=== PATIENT | female | born 1950 | race Caucasian/White ===

== ENCOUNTER 2018-06-05 19:26 | Inpatient (IN) | payer OTHER ==
[~2018-06-05] VITALS: Ht 154.9 cm; Wt 40.8 kg
[2018-06-05 19:30] VITALS: BP_SYST 102
[2018-06-05] MEDS ORDERED: LORazepam 1 MG TABLET PO ONE (20:00)
[2018-06-05] MEDS ORDERED: LORazepam 2 MG/ML VIAL (FOR ER USE) IVP ONE ×2 (20:00→21:45)
[2018-06-05] MEDS ORDERED: NS 500 ML IV ONE ×2 (20:00→21:45)
[2018-06-05] MEDS ORDERED: NA PHOS,M-B/NA PHOS,DI-BA 118 ML (FLEET ENEMA) RC ONE (20:00)
[2018-06-05] MEDS ORDERED: MORPHINE 2 MG/ML INJ. SYRINGE IVP ONE (20:30)
[2018-06-05] MEDS ORDERED: SER25 PO (22:04)
[2018-06-05] MEDS ORDERED: QUET50TA PO (22:05)
[2018-06-05] MEDS ORDERED: TRAZ-123 PO (22:06)
[2018-06-05] MEDS ORDERED: LORA-259 PO (22:06)
[2018-06-05 23:27] VITALS: BP_SYST 106
[2018-06-06] MEDS ORDERED: ALBUTEROL SULFATE 0.083% 2.5 MG/3 ML VIAL.NEB INH PRN (00:15)
[2018-06-06] MEDS ORDERED: cefTRIAXone 1 GM VIAL ONE (01:41)
[2018-06-06] MEDS: cefTRIAXone 1 GM IVPB PREMIX 50 ML IV SCH ×2 (02:20→23:53)
[2018-06-06 05:37] VITALS: BP_SYST 106
[2018-06-06] MEDS: HYDROcodone/ACETAMIN 5-325 MG TAB (NORCO/ VICODIN) PO PRN ×2 (06:32→14:00)
[2018-06-06 07:01] LABS: BASOPHILS % (AUTO) 0.3 % (0.0-2.0); EOSINOPHILS # (AUTO) 0.1 K/uL (0.0-0.4); EOSINOPHILS % (AUTO) 1.4 % (0.0-4.0); HEMATOCRIT 37.7 % (36-48); HEMOGLOBIN 12.8 g/dL (12.0-16.0); LYMPHOCYTES # (AUTO) 1.2 K/uL (1.0-5.5); LYMPHOCYTES % (AUTO) 23.6 % (20.5-51.5); MEAN CORPUSCULAR HEMOGLOBIN 32 pg (27-31); MEAN CORPUSCULAR HGB CONC 34 % (32-36); MEAN CORPUSCULAR VOLUME 94 fL (79.0-98.0); MONOCYTES # (AUTO) 0.6 K/uL (0.0-1.0); MONOCYTES % (AUTO) 11.4 % (1.7-9.3); NEUTROPHILS # (AUTO) 3.1 K/uL (1.8-7.7); NEUTROPHILS % (AUTO) 63.3 % (40.0-70.0); PLATELET COUNT (AUTO) 249 K/uL (130-430); RED BLOOD CELL COUNT(AUTO) 4.03 MIL/uL (4.2-6.2); RED CELL DISTRIBUTION WIDTH 12.6 % (9.0-15.0)
[2018-06-06 07:34] LABS: ALBUMIN 2.9 g/dL (3.4-4.8); CALCIUM 8.2 mg/dL (8.4-11.0); CREATININE 0.58 mg/dL (0.55-1.30); POTASSIUM 4.2 mmol/L (3.5-5.1); TOTAL BILIRUBIN 0.2 mg/dL (0.0-1.0)
[2018-06-06 08:00] VITALS: BP_SYST 141
[2018-06-06] MEDS: QUEtiapine FUMARATE 25 MG TABLET PO SCH ×2 (08:44→20:29)
[2018-06-06] MEDS: LORazepam 1 MG TABLET PO SCH ×3 (08:45→20:29)
[2018-06-06] MEDS ORDERED: ACETAMINOPHEN 325 MG TABLET PO PRN (10:30)
[2018-06-06] MEDS: MORPHINE 2 MG/ML INJ. SYRINGE IVP PRN (11:03)
[2018-06-06 11:09] LABS: BILIRUBIN,URINE NEGATIVE (NEGATIVE); CLARITY/URINE CLEAR (CLEAR); COLOR,URINE YELLOW (YELLOW); GLUCOSE,URINE NEGATIVE (NEGATIVE); KETONES,URINE NEGATIVE (NEGATIVE); LEUKOCYTE ESTERASE ,URINE NEGATIVE (NEGATIVE); NITRITE, URINE NEGATIVE (NEGATIVE); PH,URINE 6.5 (5.0-8.0); PROTEIN URINE NEGATIVE (NEGATIVE); UROBILINOGEN,URINE 0.2 (0.2-1.0)
[2018-06-06 11:13] LABS: BLOOD, URINE TRACE (NEGATIVE)
[2018-06-06 11:38] LABS: BACTERIA,URINE MODERATE /HPF (None Seen); MUCUS,URINE None Seen /LPF (None Seen); WBC,URINE 0-3 /HPF (0-3); YEAST,URINE None Seen /HPF (None Seen)
[2018-06-06 12:15] VITALS: BP_SYST 126
[2018-06-06 16:15] VITALS: BP_SYST 122
[2018-06-06] MEDS ORDERED: DOCUSATE SODIUM 100 MG CAPSULE PO ONE (17:45)
[2018-06-06] MEDS ORDERED: POLY17PO4 PO (18:09)
[2018-06-06] MEDS ORDERED: ESCI10TA PO (18:09)
[2018-06-06 20:00] VITALS: BP_SYST 151
[2018-06-06] MEDS: DOCUSATE SODIUM 100 MG CAPSULE PO SCH (20:29)
[2018-06-06] MEDS: traZODone HCL 50 MG TABLET (DESYREL) PO SCH (20:29)
[2018-06-06] MEDS ORDERED: QUEtiapine FUMARATE 25 MG TABLET PO SCH (21:00)
[2018-06-07 00:38] VITALS: BP_SYST 116
[2018-06-07] MEDS: ONDANSETRON HCL 4 MG/2 ML VIAL IVP PRN ×2 (05:44→19:42)
[2018-06-07] MEDS: MORPHINE 2 MG/ML INJ. SYRINGE IVP PRN ×3 (05:53→14:46)
[2018-06-07 08:00] VITALS: BP_SYST 134
[2018-06-07] MEDS ORDERED: METOCLOPRAMIDE HCL 10 MG/2 ML VIAL IVP PRN (08:45)
[2018-06-07] MEDS ORDERED: POLYETHYLENE GLYCOL 3350, 17 GM/ POWD.PACK PO SCH (09:15)
[2018-06-07] MEDS ORDERED: MINERAL OIL 30 ML UDC PO SCH (09:15)
[2018-06-07] MEDS: QUEtiapine FUMARATE 25 MG TABLET PO SCH ×2 (09:37→21:39)
[2018-06-07] MEDS: LORazepam 1 MG TABLET PO SCH ×3 (09:37→20:24)
[2018-06-07] MEDS: DOCUSATE SODIUM 100 MG CAPSULE PO SCH ×2 (09:37→20:24)
[2018-06-07] MEDS ORDERED: POLYETHYLENE GLYCOL 3350, 17 GM/ POWD.PACK PO ONE (10:00)
[2018-06-07] MEDS ORDERED: MINERAL OIL 30 ML UDC PO ONE (10:00)
[2018-06-07 12:20] VITALS: BP_SYST 139
[2018-06-07 16:15] VITALS: BP_SYST 150
[2018-06-07 20:00] VITALS: BP_SYST 137
[2018-06-07] MEDS: MINERAL OIL 30 ML UDC PO SCH (21:00)
[2018-06-07] MEDS: traZODone HCL 50 MG TABLET (DESYREL) PO SCH (21:38)
[2018-06-07] MEDS: cefTRIAXone 1 GM IVPB PREMIX 50 ML IV SCH (23:16)
[2018-06-08 00:44] VITALS: BP_SYST 122
[2018-06-08] MEDS: MORPHINE 2 MG/ML INJ. SYRINGE IVP PRN ×2 (05:59→13:27)
[2018-06-08 08:00] VITALS: BP_SYST 120
[2018-06-08] MEDS ORDERED: POLYETHYLENE GLYCOL 3350, 17 GM/ POWD.PACK PO SCH (09:00)
[2018-06-08] MEDS: DOCUSATE SODIUM 100 MG CAPSULE PO SCH ×2 (09:01→20:08)
[2018-06-08] MEDS: QUEtiapine FUMARATE 25 MG TABLET PO SCH ×3 (09:01→20:08)
[2018-06-08] MEDS: MINERAL OIL 30 ML UDC PO SCH ×2 (09:01→20:09)
[2018-06-08] MEDS: LORazepam 1 MG TABLET PO SCH ×3 (09:01→20:09)
[2018-06-08] MEDS: ONDANSETRON HCL 4 MG/2 ML VIAL IVP PRN (10:27)
[2018-06-08 11:40] LABS: BASOPHILS % (AUTO) 0.4 % (0.0-2.0); EOSINOPHILS # (AUTO) 0.1 K/uL (0.0-0.4); EOSINOPHILS % (AUTO) 1.1 % (0.0-4.0); HEMATOCRIT 42.4 % (36-48); HEMOGLOBIN 14.1 g/dL (12.0-16.0); MEAN CORPUSCULAR HEMOGLOBIN 31 pg (27-31); MEAN CORPUSCULAR HGB CONC 33 % (32-36); MEAN CORPUSCULAR VOLUME 93 fL (79.0-98.0); MONOCYTES # (AUTO) 0.6 K/uL (0.0-1.0); NEUTROPHILS # (AUTO) 4.6 K/uL (1.8-7.7); NEUTROPHILS % (AUTO) 73.5 % (40.0-70.0); PLATELET COUNT (AUTO) 262 K/uL (130-430); RED BLOOD CELL COUNT(AUTO) 4.54 MIL/uL (4.2-6.2); RED CELL DISTRIBUTION WIDTH 12.6 % (9.0-15.0); WHITE BLOOD COUNT (AUTO) 6.4 K/uL (4.8-10.8)
[2018-06-08 11:48] LABS: CALCIUM 8.7 mg/dL (8.4-11.0); CREATININE 0.63 mg/dL (0.55-1.30); POTASSIUM 4.1 mmol/L (3.5-5.1)
[2018-06-08 11:56] LABS: ALBUMIN 3.3 g/dL (3.4-4.8); TOTAL BILIRUBIN 0.4 mg/dL (0.0-1.0)
[2018-06-08 13:04] VITALS: BP_SYST 104
[2018-06-08 17:06] VITALS: BP_SYST 123
[2018-06-08 18:00] VITALS: BP_SYST 126
[2018-06-08] MEDS: traZODone HCL 50 MG TABLET (DESYREL) PO SCH (20:09)
== END 2018-06-08 21:00 | DRG 690 ==
LOC: SED 19:26 → SMU 22:33
PROVIDERS: ADMIT Internal Medicine; ATTEND Internal Medicine
DX: N39.0 Urinary tract infection, site not specified (principal); E44.0 Moderate protein-calorie malnutrition; K59.00 Constipation, unspecified; D72.819 Decreased white blood cell count, unspecified; F41.9 Anxiety disorder, unspecified; I10 Essential (primary) hypertension; G35 Multiple sclerosis; F32.9 Major depressive disorder, single episode, unspecified; Z82.49 Family history of ischemic heart disease and other diseases of the circulatory system; Z88.2 Allergy status to sulfonamides; Z90.710 Acquired absence of both cervix and uterus; Z90.79 Acquired absence of other genital organ(s); Z79.899 Other long term (current) drug therapy
CPT/HCPCS: 36415; 76700-TC; 80053; 81000-TC; 85025; 87086; 94640; 94760; 96361; 96374; 96375; 96376; 97116-GP; 97530-GP; 99285; J0696; J2060; J2270; J2405; J2765; J7030; J7613

== ENCOUNTER 2018-06-18 12:03 | Inpatient (IN) | payer OTHER ==
[~2018-06-18] VITALS: Ht 152.4 cm; Wt 36.7 kg
[~2018-06-18 12:03] MED LIST: ESCI10TA PO; LORA-259 PO; POLY17PO4 PO; QUET50TA PO; SER25 PO; TRAZ-123 PO
[2018-06-18 12:05] VITALS: BP_SYST 152
[2018-06-18] MEDS ORDERED: LORazepam 1 MG TABLET PO ONE (12:15)
[2018-06-18 12:39] LABS: EOSINOPHILS # (AUTO) 0.1 K/uL (0.0-0.4); EOSINOPHILS % (AUTO) 1.7 % (0.0-4.0); HEMATOCRIT 39.2 % (36-48); HEMOGLOBIN 13.1 g/dL (12.0-16.0); LYMPHOCYTES # (AUTO) 1.1 K/uL (1.0-5.5); LYMPHOCYTES % (AUTO) 18.9 % (20.5-51.5); MEAN CORPUSCULAR HEMOGLOBIN 32 pg (27-31); MEAN CORPUSCULAR HGB CONC 34 % (32-36); MEAN CORPUSCULAR VOLUME 94 fL (79.0-98.0); MONOCYTES # (AUTO) 0.5 K/uL (0.0-1.0); MONOCYTES % (AUTO) 9.4 % (1.7-9.3); PLATELET COUNT (AUTO) 199 K/uL (130-430); RED BLOOD CELL COUNT(AUTO) 4.17 MIL/uL (4.2-6.2); RED CELL DISTRIBUTION WIDTH 12.2 % (9.0-15.0); WHITE BLOOD COUNT (AUTO) 5.8 K/uL (4.8-10.8)
[2018-06-18 12:41] LABS: BASOPHILS % (AUTO) 0.5 % (0.0-2.0); NEUTROPHILS # (AUTO) 4.1 K/uL (1.8-7.7); NEUTROPHILS % (AUTO) 69.5 % (40.0-70.0)
[2018-06-18 12:47] LABS: CALCIUM 8.7 mg/dL (8.4-11.0); CREATININE 0.57 mg/dL (0.55-1.30)
[2018-06-18 12:49] LABS: BILIRUBIN,URINE NEGATIVE (NEGATIVE); BLOOD, URINE NEGATIVE (NEGATIVE); CLARITY/URINE CLEAR (CLEAR); COLOR,URINE YELLOW (YELLOW); GLUCOSE,URINE NEGATIVE (NEGATIVE); KETONES,URINE NEGATIVE (NEGATIVE); LEUKOCYTE ESTERASE ,URINE NEGATIVE (NEGATIVE); NITRITE, URINE NEGATIVE (NEGATIVE); PH,URINE 5.5 (5.0-8.0); PROTEIN URINE NEGATIVE (NEGATIVE); UROBILINOGEN,URINE 0.2 (0.2-1.0)
[2018-06-18 12:51] LABS: ALBUMIN 3.5 g/dL (3.4-4.8); PROTHROMBIN TIME 10.4 SECS (9.5-12.5); TOTAL BILIRUBIN 0.3 mg/dL (0.0-1.0)
[2018-06-18] MEDS ORDERED: NA PHOS,M-B/NA PHOS,DI-BA 118 ML (FLEET ENEMA) RC ONE (13:30)
[2018-06-18] MEDS ORDERED: MAGNESIUM CITRATE 300 ML ORAL SOLUTION PO ONE (13:30)
[2018-06-18] MEDS ORDERED: ACETAMINOPHEN 325 MG TABLET PO PRN (14:00)
[2018-06-18] MEDS ORDERED: fentaNYL CITRATE/PF 100 MCG/2 ML AMP IVP ONE (14:25)
[2018-06-18] MEDS ORDERED: SEVOFLURANE 15 MIN GAS INH ONE (14:25)
[2018-06-18] MEDS ORDERED: metroNIDAZOLE 500 mg/NS 100 mL IVPB IV ONE (14:25)
[2018-06-18] MEDS ORDERED: GLYCOPYRROLATE 0.2 MG/ML VIAL IJ ONE (14:25)
[2018-06-18] MEDS ORDERED: LR 1,000 ML IV.SOLN IV ONE (14:25)
[2018-06-18] MEDS ORDERED: MIDAZOLAM HCL 5 MG/5 ML VIAL IVP ONE (14:25)
[2018-06-18] MEDS ORDERED: NEOSTIGMINE METHYLSULFATE 1 MG/ML, 10 ML VIAL IVP ONE (14:25)
[2018-06-18] MEDS ORDERED: BUPIVACAINE /PF 0.75% 10 ML VIAL INJ ONE (14:25)
[2018-06-18] MEDS ORDERED: CEFAZOLIN 1 GM IVPB PREMIX 50 ML IV ONE (14:25)
[2018-06-18] MEDS ORDERED: ROCURONIUM BROMIDE 10 MG/ML (ZEMURON) IV ONE (14:25)
[2018-06-18] MEDS ORDERED: NS IRRIG SOLN 1000 ML IR ONE (14:25)
[2018-06-18] MEDS ORDERED: ROPIVACAINE HCL/PF 5 MG/ML 0.5% 30 ML VIAL INJ ONE (14:25)
[2018-06-18] MEDS ORDERED: PROPOFOL 200MG/ 20ML VIAL (DIPRIVAN) IV ONE (14:25)
[2018-06-18 14:32] VITALS: BP_SYST 121
[2018-06-18] MEDS: NACL 0.9% 1,000 ML IV SCH ×2 (14:58→23:46)
[2018-06-18] MEDS: MORPHINE 2 MG/ML INJ. SYRINGE IVP PRN ×2 (15:03→19:37)
[2018-06-18] MEDS: ONDANSETRON HCL 4 MG/2 ML VIAL IVP PRN (15:45)
[2018-06-18] MEDS ORDERED: ESCITALOPRAM OXALATE 10 MG TABLET PO SCH (18:30)
[2018-06-18] MEDS: LORazepam 1 MG TABLET PO SCH ×2 (18:30→20:30)
[2018-06-18 20:00] VITALS: BP_SYST 142
[2018-06-18] MEDS ORDERED: QUEtiapine FUMARATE 25 MG TABLET PO ONE (20:00)
[2018-06-18] MEDS: traZODone HCL 50 MG TABLET (DESYREL) PO SCH (20:30)
[2018-06-18] MEDS: QUEtiapine FUMARATE 25 MG TABLET PO SCH (21:00)
[2018-06-19 00:19] VITALS: BP_SYST 129
[2018-06-19] MEDS: MORPHINE 2 MG/ML INJ. SYRINGE IVP PRN ×2 (00:35→05:50)
[2018-06-19] MEDS: ONDANSETRON HCL 4 MG/2 ML VIAL IVP PRN ×2 (00:39→07:33)
[2018-06-19 08:04] VITALS: BP_SYST 158
[2018-06-19] MEDS: POLYETHYLENE GLYCOL 3350, 17 GM/ POWD.PACK PO SCH (08:22)
[2018-06-19] MEDS: CITALOPRAM HYDROBROMIDE 20 MG TABLET PO SCH (08:22)
[2018-06-19] MEDS: QUEtiapine FUMARATE 25 MG TABLET PO SCH ×3 (08:23→20:50)
[2018-06-19] MEDS: LORazepam 1 MG TABLET PO SCH ×3 (08:23→20:49)
[2018-06-19] MEDS: NACL 0.9% 1,000 ML IV SCH ×2 (08:26→20:49)
[2018-06-19] MEDS ORDERED: ESCITALOPRAM OXALATE 10 MG TABLET PO SCH (09:00)
[2018-06-19] MEDS ORDERED: BACLOFEN 10 MG TABLET PO PRN (10:30)
[2018-06-19] MEDS: ALPRAZolam 0.25 MG TABLET PO PRN (11:29)
[2018-06-19 12:15] VITALS: BP_SYST 121
[2018-06-19] MEDS ORDERED: LACTULOSE 20 GM/30 ML UDC PO ONE (15:30)
[2018-06-19 16:48] VITALS: BP_SYST 110
[2018-06-19 20:00] VITALS: BP_SYST 116
[2018-06-19] MEDS: traZODone HCL 50 MG TABLET (DESYREL) PO SCH (20:49)
[2018-06-19] MEDS: LACTULOSE 20 GM/30 ML UDC PO SCH (20:51)
[2018-06-20 01:00] VITALS: BP_SYST 133
[2018-06-20] MEDS: NACL 0.9% 1,000 ML IV SCH ×2 (05:47→15:53)
[2018-06-20] MEDS: ALPRAZolam 0.25 MG TABLET PO PRN ×2 (06:19→18:29)
[2018-06-20 08:09] VITALS: BP_SYST 130
[2018-06-20] MEDS: POLYETHYLENE GLYCOL 3350, 17 GM/ POWD.PACK PO SCH (08:15)
[2018-06-20] MEDS: LORazepam 1 MG TABLET PO SCH ×3 (08:16→21:35)
[2018-06-20] MEDS: QUEtiapine FUMARATE 25 MG TABLET PO SCH ×3 (08:16→22:36)
[2018-06-20] MEDS: CITALOPRAM HYDROBROMIDE 20 MG TABLET PO SCH (08:16)
[2018-06-20] MEDS: LACTULOSE 20 GM/30 ML UDC PO SCH ×2 (08:16→21:34)
[2018-06-20] MEDS ORDERED: MAGNESIUM CITRATE 300 ML ORAL SOLUTION PO ONE (09:45)
[2018-06-20] MEDS: MORPHINE 2 MG/ML INJ. SYRINGE IVP PRN (10:05)
[2018-06-20] MEDS ORDERED: POLYETHYLENE GLYCOL 3350, 17 GM/ POWD.PACK PO ONE (10:15)
[2018-06-20] MEDS ORDERED: MINERAL OIL 30 ML UDC PO ONE (10:15)
[2018-06-20] MEDS ORDERED: MORPHINE 2 MG/ML INJ. SYRINGE IVP ONE (11:45)
[2018-06-20 12:15] VITALS: BP_SYST 145
[2018-06-20] MEDS ORDERED: GOLYTELY / COLYTE SOLUTION 4 LITERS PO ONE (12:15)
[2018-06-20 13:14] LABS: BASOPHILS # (AUTO) 0.1 K/uL (0.0-0.2); BASOPHILS % (AUTO) 1.3 % (0.0-2.0); EOSINOPHILS # (AUTO) 0.1 K/uL (0.0-0.4); EOSINOPHILS % (AUTO) 1.6 % (0.0-4.0); HEMATOCRIT 40.4 % (36-48); HEMOGLOBIN 13.3 g/dL (12.0-16.0); LYMPHOCYTES # (AUTO) 1.1 K/uL (1.0-5.5); LYMPHOCYTES % (AUTO) 20.9 % (20.5-51.5); MEAN CORPUSCULAR HEMOGLOBIN 31 pg (27-31); MEAN CORPUSCULAR HGB CONC 33 % (32-36); MEAN CORPUSCULAR VOLUME 94 fL (79.0-98.0); MONOCYTES # (AUTO) 0.4 K/uL (0.0-1.0); MONOCYTES % (AUTO) 8.1 % (1.7-9.3); NEUTROPHILS # (AUTO) 3.6 K/uL (1.8-7.7); NEUTROPHILS % (AUTO) 68.1 % (40.0-70.0); PLATELET COUNT (AUTO) 177 K/uL (130-430); RED BLOOD CELL COUNT(AUTO) 4.29 MIL/uL (4.2-6.2); RED CELL DISTRIBUTION WIDTH 12.7 % (9.0-15.0); WHITE BLOOD COUNT (AUTO) 5.3 K/uL (4.8-10.8)
[2018-06-20 13:20] LABS: CALCIUM 8.9 mg/dL (8.4-11.0); CREATININE 0.55 mg/dL (0.55-1.30); POTASSIUM 4.2 mmol/L (3.5-5.1)
[2018-06-20 13:27] LABS: PROTHROMBIN TIME 10.4 SECS (9.5-12.5)
[2018-06-20] MEDS: MINERAL OIL 30 ML UDC PO SCH ×2 (13:33→21:36)
[2018-06-20] MEDS: ONDANSETRON HCL 4 MG/2 ML VIAL IVP PRN ×2 (14:28→21:35)
[2018-06-20 14:49] LABS: BILIRUBIN,URINE NEGATIVE (NEGATIVE); BLOOD, URINE NEGATIVE (NEGATIVE); CLARITY/URINE CLEAR (CLEAR); COLOR,URINE YELLOW (YELLOW); GLUCOSE,URINE NEGATIVE (NEGATIVE); KETONES,URINE NEGATIVE (NEGATIVE); LEUKOCYTE ESTERASE ,URINE NEGATIVE (NEGATIVE); NITRITE, URINE NEGATIVE (NEGATIVE); PROTEIN URINE NEGATIVE (NEGATIVE); UROBILINOGEN,URINE 0.2 (0.2-1.0)
[2018-06-20] MEDS: HYDROmorphone 1 MG INJ. 1 MG/ML AMPUL IVP PRN (15:53)
[2018-06-20 16:15] VITALS: BP_SYST 114
[2018-06-20] MEDS: NEOMYCIN SULFATE 500 MG TABLET PO SCH ×2 (17:50→23:21)
[2018-06-20 20:06] VITALS: BP_SYST 145
[2018-06-20] MEDS: traZODone HCL 50 MG TABLET (DESYREL) PO SCH (22:36)
[2018-06-21 00:28] VITALS: BP_SYST 99
[2018-06-21] MEDS: NACL 0.9% 1,000 ML IV SCH ×2 (01:57→11:33)
[2018-06-21] MEDS: ONDANSETRON HCL 4 MG/2 ML VIAL IVP PRN (05:45)
[2018-06-21] MEDS: HYDROmorphone 1 MG INJ. 1 MG/ML AMPUL IVP PRN ×3 (05:45→22:25)
[2018-06-21] MEDS: MINERAL OIL 30 ML UDC PO SCH ×2 (06:00→13:56)
[2018-06-21] MEDS: NEOMYCIN SULFATE 500 MG TABLET PO SCH ×2 (06:00→11:44)
[2018-06-21] MEDS: LORazepam 2 MG/ML VIAL IVP PRN ×2 (06:38→11:37)
[2018-06-21 07:55] VITALS: BP_SYST 153
[2018-06-21] MEDS: POLYETHYLENE GLYCOL 3350, 17 GM/ POWD.PACK PO SCH (09:00)
[2018-06-21] MEDS: QUEtiapine FUMARATE 25 MG TABLET PO SCH ×3 (09:00→22:24)
[2018-06-21] MEDS: LACTULOSE 20 GM/30 ML UDC PO SCH (09:00)
[2018-06-21] MEDS: CITALOPRAM HYDROBROMIDE 20 MG TABLET PO SCH (09:00)
[2018-06-21] MEDS: LORazepam 1 MG TABLET PO SCH ×3 (09:00→22:24)
[2018-06-21] MEDS ORDERED: POLYETHYLENE GLYCOL 3350, 17 GM/ POWD.PACK PO SCH (09:00)
[2018-06-21 12:15] VITALS: BP_SYST 149
[2018-06-21 13:23] VITALS: BP_SYST 162
[2018-06-21] MEDS ORDERED: metroNIDAZOLE 500 mg/NS 100 ML IV ONE (15:16)
[2018-06-21] MEDS ORDERED: LR 500 ML IV ONE (15:33)
[2018-06-21] MEDS ORDERED: fentaNYL CITRATE/PF 100 MCG/2 ML AMP IVP PRN ×2 (15:45)
[2018-06-21] MEDS ORDERED: MIDAZOLAM HCL 2 MG/2 ML VIAL (VERSED) IVP PRN (15:45)
[2018-06-21] MEDS ORDERED: ONDANSETRON HCL 4 MG/2 ML VIAL IVP PRN (15:45)
[2018-06-21 16:01] VITALS: BP_SYST 162
[2018-06-21] MEDS ORDERED: ROPIVACAINE 0.2% 100 ML EPI ONE (16:15)
[2018-06-21] MEDS ORDERED: MIDAZOLAM HCL 2 MG/2 ML VIAL (VERSED) ONE (16:54)
[2018-06-21] MEDS ORDERED: fentaNYL CITRATE/PF 100 MCG/2 ML AMP ONE (17:13)
[2018-06-21] MEDS ORDERED: KETOROLAC TROMETHAMINE 30 MG VIAL ONE (17:14)
[2018-06-21] MEDS: PIPERACILLIN/TAZO 2.25G/DEX-IS 50 ML IV SCH ×2 (18:19→23:45)
[2018-06-21] MEDS: D5/0.45 NS 1,000 ML IV SCH (18:20)
[2018-06-21 19:45] VITALS: BP_SYST 127
[2018-06-21 19:56] LABS: BASOPHILS % (AUTO) 0.3 % (0.0-2.0); EOSINOPHILS % (AUTO) 0.1 % (0.0-4.0); HEMATOCRIT 38.7 % (36-48); HEMOGLOBIN 13.2 g/dL (12.0-16.0); LYMPHOCYTES # (AUTO) 0.4 K/uL (1.0-5.5); LYMPHOCYTES % (AUTO) 2.9 % (20.5-51.5); MEAN CORPUSCULAR HEMOGLOBIN 32 pg (27-31); MEAN CORPUSCULAR HGB CONC 34 % (32-36); MEAN CORPUSCULAR VOLUME 93 fL (79.0-98.0); MONOCYTES # (AUTO) 1.2 K/uL (0.0-1.0); MONOCYTES % (AUTO) 8.3 % (1.7-9.3); NEUTROPHILS # (AUTO) 12.7 K/uL (1.8-7.7); PLATELET COUNT (AUTO) 155 K/uL (130-430); RED BLOOD CELL COUNT(AUTO) 4.18 MIL/uL (4.2-6.2); RED CELL DISTRIBUTION WIDTH 12.5 % (9.0-15.0); WHITE BLOOD COUNT (AUTO) 14.3 K/uL (4.8-10.8)
[2018-06-21 20:28] LABS: NEUTROPHILS % (AUTO) 88.4 % (40.0-70.0)
[2018-06-21] MEDS ORDERED: ROPIVACAINE 0.2% 200 ML ONE (22:16)
[2018-06-21] MEDS: traZODone HCL 50 MG TABLET (DESYREL) PO SCH (22:24)
[2018-06-21] MEDS: metroNIDAZOLE 500 mg/NS 100 ML IV SCH (22:26)
[2018-06-21] MEDS: ROPIVACAINE 0.2% 100 ML EPI SCH (23:12)
[2018-06-22 00:23] VITALS: BP_SYST 151
[2018-06-22] MEDS: LORazepam 2 MG/ML VIAL IVP PRN (01:27)
[2018-06-22] MEDS: metroNIDAZOLE 500 mg/NS 100 ML IV SCH (05:22)
[2018-06-22] MEDS: PIPERACILLIN/TAZO 2.25G/DEX-IS 50 ML IV SCH ×4 (06:48→23:37)
[2018-06-22] MEDS: ROPIVACAINE 0.2% 100 ML EPI SCH ×3 (06:49→22:16)
[2018-06-22 06:54] LABS: ALBUMIN 2.7 g/dL (3.4-4.8); CALCIUM 8.1 mg/dL (8.4-11.0); CREATININE 0.64 mg/dL (0.55-1.30); HEMOGLOBIN 12.3 g/dL (12.0-16.0); LYMPHOCYTES # (AUTO) 0.7 K/uL (1.0-5.5); MEAN CORPUSCULAR HEMOGLOBIN 33 pg (27-31); PLATELET COUNT (AUTO) 135 K/uL (130-430); POTASSIUM 3.2 mmol/L (3.5-5.1); TOTAL BILIRUBIN 0.7 mg/dL (0.0-1.0)
[2018-06-22 07:13] LABS: RED BLOOD CELL COUNT(AUTO) 3.81 MIL/uL (4.2-6.2); WHITE BLOOD COUNT (AUTO) 9.3 K/uL (4.8-10.8)
[2018-06-22 07:14] LABS: HEMATOCRIT 35.6 % (36-48); MEAN CORPUSCULAR HGB CONC 32 % (32-36); MEAN CORPUSCULAR VOLUME 94 fL (79.0-98.0)
[2018-06-22 07:15] LABS: MONOCYTES % (AUTO) 10.5 % (1.7-9.3); NEUTROPHILS % (AUTO) 82.3 % (40.0-70.0); RED CELL DISTRIBUTION WIDTH 12.6 % (9.0-15.0)
[2018-06-22 07:16] LABS: EOSINOPHILS % (AUTO) 0.2 % (0.0-4.0); NEUTROPHILS # (AUTO) 7.6 K/uL (1.8-7.7)
[2018-06-22] MEDS: D5/0.45 NS 1,000 ML IV SCH ×3 (07:20→17:07)
[2018-06-22 08:00] VITALS: BP_SYST 135
[2018-06-22] MEDS: LORazepam 1 MG TABLET PO SCH ×3 (08:43→22:16)
[2018-06-22] MEDS: QUEtiapine FUMARATE 25 MG TABLET PO SCH ×3 (08:43→22:16)
[2018-06-22] MEDS: CITALOPRAM HYDROBROMIDE 20 MG TABLET PO SCH (08:44)
[2018-06-22] MEDS: ONDANSETRON HCL 4 MG/2 ML VIAL IVP PRN ×3 (08:54→23:40)
[2018-06-22] MEDS: KETOROLAC TROMETHAMINE 15 MG VIAL IVP PRN (10:35)
[2018-06-22 12:24] VITALS: BP_SYST 156
[2018-06-22] MEDS: HYDROmorphone 1 MG INJ. 1 MG/ML AMPUL IVP PRN ×3 (12:50→23:37)
[2018-06-22 16:17] VITALS: BP_SYST 107; BP_SYST 117
[2018-06-22 19:45] VITALS: BP_SYST 127
[2018-06-22] MEDS: traZODone HCL 50 MG TABLET (DESYREL) PO SCH (22:16)
[2018-06-23 00:49] VITALS: BP_SYST 108
[2018-06-23] MEDS: HYDROmorphone 1 MG INJ. 1 MG/ML AMPUL IVP PRN ×5 (05:26→22:19)
[2018-06-23] MEDS: PIPERACILLIN/TAZO 2.25G/DEX-IS 50 ML IV SCH ×3 (05:27→17:16)
[2018-06-23] MEDS: ROPIVACAINE 0.2% 100 ML EPI SCH (05:43)
[2018-06-23 06:52] LABS: CALCIUM 8.2 mg/dL (8.4-11.0); CREATININE 0.66 mg/dL (0.55-1.30)
[2018-06-23 06:55] LABS: BASOPHILS % (AUTO) 0.7 % (0.0-2.0); EOSINOPHILS % (AUTO) 0.7 % (0.0-4.0); HEMATOCRIT 38.4 % (36-48); HEMOGLOBIN 12.5 g/dL (12.0-16.0); MEAN CORPUSCULAR HEMOGLOBIN 31 pg (27-31); MEAN CORPUSCULAR HGB CONC 33 % (32-36); MEAN CORPUSCULAR VOLUME 94 fL (79.0-98.0); MONOCYTES # (AUTO) 0.8 K/uL (0.0-1.0); MONOCYTES % (AUTO) 11.6 % (1.7-9.3); NEUTROPHILS # (AUTO) 5.2 K/uL (1.8-7.7); PLATELET COUNT (AUTO) 136 K/uL (130-430); RED BLOOD CELL COUNT(AUTO) 4.08 MIL/uL (4.2-6.2); RED CELL DISTRIBUTION WIDTH 12.3 % (9.0-15.0)
[2018-06-23 07:08] LABS: ALBUMIN 2.8 g/dL (3.4-4.8); TOTAL BILIRUBIN 0.7 mg/dL (0.0-1.0)
[2018-06-23 07:13] LABS: POTASSIUM 2.8 mmol/L (3.5-5.1)
[2018-06-23 08:00] VITALS: BP_SYST 113
[2018-06-23] MEDS: CITALOPRAM HYDROBROMIDE 20 MG TABLET PO SCH (09:07)
[2018-06-23] MEDS: QUEtiapine FUMARATE 25 MG TABLET PO SCH ×4 (09:07→20:49)
[2018-06-23] MEDS: LORazepam 1 MG TABLET PO SCH ×3 (09:07→20:49)
[2018-06-23] MEDS: KCL 20 mEq in 100 mL (PREMIX) 100 ML IV SCH ×2 (09:09→11:48)
[2018-06-23] MEDS: D5/0.45 NS 1,000 ML IV SCH ×3 (09:10→21:33)
[2018-06-23] MEDS: LORazepam 2 MG/ML VIAL IVP PRN (11:41)
[2018-06-23] MEDS: KETOROLAC TROMETHAMINE 15 MG VIAL IVP PRN (11:43)
[2018-06-23] MEDS: ONDANSETRON HCL 4 MG/2 ML VIAL IVP PRN (11:45)
[2018-06-23 14:26] VITALS: BP_SYST 122
[2018-06-23 16:00] VITALS: BP_SYST 125
[2018-06-23] MEDS ORDERED: POTASSIUM CHLORIDE 40 MEQ, LIDOCAINE JECT 2% PF 100 MG 50 MG in NS 250 ML IV ONE (18:00)
[2018-06-23 19:55] VITALS: BP_SYST 135
[2018-06-23] MEDS: traZODone HCL 50 MG TABLET (DESYREL) PO SCH (20:49)
[2018-06-24] MEDS: PIPERACILLIN/TAZO 2.25G/DEX-IS 50 ML IV SCH ×3 (00:09→12:15)
[2018-06-24 00:34] VITALS: BP_SYST 112
[2018-06-24 03:30] VITALS: BP_SYST 141
[2018-06-24] MEDS: HYDROmorphone 1 MG INJ. 1 MG/ML AMPUL IVP PRN ×3 (03:33→13:20)
[2018-06-24] MEDS: ONDANSETRON HCL 4 MG/2 ML VIAL IVP PRN ×2 (03:42→08:07)
[2018-06-24 08:00] VITALS: BP_SYST 156
[2018-06-24] MEDS: CITALOPRAM HYDROBROMIDE 20 MG TABLET PO SCH (08:09)
[2018-06-24] MEDS: QUEtiapine FUMARATE 25 MG TABLET PO SCH ×2 (08:09→13:20)
[2018-06-24] MEDS ORDERED: ACET325T53 PO (08:10)
[2018-06-24] MEDS: LORazepam 1 MG TABLET PO SCH (08:10)
[2018-06-24] MEDS: D5/0.45 NS 1,000 ML IV SCH (08:46)
[2018-06-24 11:29] VITALS: BP_SYST 148
[2018-06-24] MEDS: LORazepam 2 MG/ML VIAL IVP PRN (12:15)
[2018-06-24 12:26] VITALS: BP_SYST 148
== END 2018-06-24 13:40 | DRG 329 ==
LOC: SED 12:03 → SMU 13:58 → STU 06-21 19:08 → SMU 06-23 13:59
PROVIDERS: ADMIT Internal Medicine; ATTEND Internal Medicine
PROC: 0DBK0ZZ Excision of Ascending Colon, Open Approach (ICD-10-PCS; 2018-06-21)
PROC: 0DBL0ZZ Excision of Transverse Colon, Open Approach (ICD-10-PCS; 2018-06-21)
PROC: 0DBN0ZZ Excision of Sigmoid Colon, Open Approach (ICD-10-PCS; 2018-06-21)
PROC: 0D1K0Z4 Bypass Ascending Colon to Cutaneous, Open Approach (ICD-10-PCS; principal; 2018-06-21 15:00)
DX: K62.3 Rectal prolapse (principal); E43 Unspecified severe protein-calorie malnutrition; Z68.1 Body mass index [BMI] 19.9 or less, adult; K56.41 Fecal impaction; I10 Essential (primary) hypertension; G89.29 Other chronic pain; K59.8 Other specified functional intestinal disorders; M19.90 Unspecified osteoarthritis, unspecified site; F41.9 Anxiety disorder, unspecified; F32.9 Major depressive disorder, single episode, unspecified; Z90.710 Acquired absence of both cervix and uterus; Z90.49 Acquired absence of other specified parts of digestive tract; Z88.2 Allergy status to sulfonamides; Z79.899 Other long term (current) drug therapy
CPT/HCPCS: 36415; 71045; 74018; 80048; 80053; 81003; 82150-TC; 83605; 83690-TC; 83735-TC; 84132-TC; 85025; 85610-TC; 85730-TC; 86886; 86900; 86901; 87081; 88307; 93005; 97110-GP; 97116-GP; 97530-GP; 99285; J0690; J1170; J1885; J2060; J2250; J2270; J2405; J2543; J2704; J2710; J2795; J3010; J3465; J3480; J3490; J7030; J7050; J7120

== ENCOUNTER 2018-07-23 05:28 | Inpatient (IN) | payer OTHER ==
[~2018-07-23] VITALS: Ht 167.6 cm; Wt 44.9 kg
[~2018-07-23 05:28] MED LIST changes: +ACET325T53 PO
[2018-07-23 05:33] VITALS: BP_SYST 117
[2018-07-23] MEDS ORDERED: NACL 0.9% 1,000 ML IV ONE ×2 (05:37→07:15)
[2018-07-23] MEDS ORDERED: MORPHINE 2 MG/ML INJ. SYRINGE IVP ONE (05:45)
[2018-07-23] MEDS ORDERED: ONDANSETRON HCL 4 MG/2 ML VIAL IVP ONE ×2 (05:45)
[2018-07-23 06:36] LABS: BASOPHILS % (AUTO) 0.6 % (0.0-2.0); EOSINOPHILS # (AUTO) 0.1 K/uL (0.0-0.4); EOSINOPHILS % (AUTO) 2.9 % (0.0-4.0); HEMOGLOBIN 12.9 g/dL (12.0-16.0); LYMPHOCYTES # (AUTO) 1.2 K/uL (1.0-5.5); LYMPHOCYTES % (AUTO) 23.6 % (20.5-51.5); MEAN CORPUSCULAR HEMOGLOBIN 30 pg (27-31); MEAN CORPUSCULAR HGB CONC 33 % (32-36); MEAN CORPUSCULAR VOLUME 91 fL (79.0-98.0); MONOCYTES # (AUTO) 0.4 K/uL (0.0-1.0); MONOCYTES % (AUTO) 8.6 % (1.7-9.3); NEUTROPHILS # (AUTO) 3.2 K/uL (1.8-7.7); NEUTROPHILS % (AUTO) 64.3 % (40.0-70.0); PLATELET COUNT (AUTO) 215 K/uL (130-430); WHITE BLOOD COUNT (AUTO) 4.9 K/uL (4.8-10.8)
[2018-07-23 06:48] LABS: PROTHROMBIN TIME 10.2 SECS (9.5-12.5)
[2018-07-23 06:52] LABS: CALCIUM 8.6 mg/dL (8.4-11.0); CREATININE 0.51 mg/dL (0.55-1.30); POTASSIUM 4.5 mmol/L (3.5-5.1)
[2018-07-23 07:03] LABS: ALBUMIN 3.2 g/dL (3.4-4.8); TOTAL BILIRUBIN 0.8 mg/dL (0.0-1.0)
[2018-07-23] MEDS ORDERED: SER100 PO (07:36)
[2018-07-23] MEDS ORDERED: LORA-258 PO (07:36)
[2018-07-23] MEDS ORDERED: ONDA4TAB5 PO (07:36)
[2018-07-23] MEDS ORDERED: TRAZ300T11 PO (07:36)
[2018-07-23] MEDS ORDERED: FAMO20TA8 PO (07:36)
[2018-07-23] MEDS ORDERED: CEL20 PO (07:36)
[2018-07-23] MEDS ORDERED: LUBI24CA5 PO (07:36)
[2018-07-23] MEDS ORDERED: ESCI10TA54 PO (07:45)
[2018-07-23] MEDS ORDERED: NOR10 PO (07:45)
[2018-07-23] MEDS ORDERED: CAT.1 PO (07:45)
[2018-07-23] MEDS ORDERED: IBUP-1969 PO (07:45)
[2018-07-23] MEDS ORDERED: HYDR-3606 PO (07:49)
[2018-07-23] MEDS ORDERED: ASCO1TAB39 PO (07:49)
[2018-07-23] MEDS ORDERED: BISA-79 PO (07:49)
[2018-07-23 08:31] LABS: BILIRUBIN,URINE NEGATIVE (NEGATIVE); BLOOD, URINE NEGATIVE (NEGATIVE); CLARITY/URINE CLEAR (CLEAR); COLOR,URINE YELLOW (YELLOW); GLUCOSE,URINE NEGATIVE (NEGATIVE); KETONES,URINE NEGATIVE (NEGATIVE); LEUKOCYTE ESTERASE ,URINE NEGATIVE (NEGATIVE); NITRITE, URINE NEGATIVE (NEGATIVE); PROTEIN URINE NEGATIVE (NEGATIVE); UROBILINOGEN,URINE 0.2 (0.2-1.0)
[2018-07-23] MEDS: NACL 0.9% 1,000 ML IV SCH (13:26)
[2018-07-23 13:30] VITALS: BP_SYST 130
[2018-07-23 13:37] VITALS: BP_SYST 130
[2018-07-23] MEDS: ONDANSETRON HCL 4 MG/2 ML VIAL IVP PRN (13:38)
[2018-07-23 15:54] VITALS: BP_SYST 107
[2018-07-23 19:49] VITALS: BP_SYST 89
[2018-07-23] MEDS: MORPHINE 2 MG/ML INJ. SYRINGE IVP PRN (20:28)
[2018-07-23] MEDS: QUEtiapine FUMARATE 100 MG TABLET PO SCH (20:28)
[2018-07-23] MEDS ORDERED: cloNIDine HCL 0.1 MG TABLET PO SCH (22:00)
[2018-07-23] MEDS: ACETAMINOPHEN 325 MG TABLET PO PRN (23:26)
[2018-07-24] VITALS (7 sets, daily range): BP systolic 105–127
[2018-07-24] MEDS: MORPHINE 2 MG/ML INJ. SYRINGE IVP PRN ×6 (01:34→22:25)
[2018-07-24] MEDS: NACL 0.9% 1,000 ML IV SCH ×2 (01:35→14:58)
[2018-07-24] MEDS: ACETAMINOPHEN 325 MG TABLET PO PRN ×3 (04:41→17:32)
[2018-07-24] MEDS: ONDANSETRON HCL 4 MG/2 ML VIAL IVP PRN (04:42)
[2018-07-24 06:35] LABS: BASOPHILS % (AUTO) 0.7 % (0.0-2.0); EOSINOPHILS # (AUTO) 0.2 K/uL (0.0-0.4); EOSINOPHILS % (AUTO) 4.9 % (0.0-4.0); HEMATOCRIT 34.7 % (36-48); HEMOGLOBIN 11.2 g/dL (12.0-16.0); LYMPHOCYTES # (AUTO) 1.6 K/uL (1.0-5.5); LYMPHOCYTES % (AUTO) 32.5 % (20.5-51.5); MEAN CORPUSCULAR HEMOGLOBIN 30 pg (27-31); MEAN CORPUSCULAR HGB CONC 32 % (32-36); MEAN CORPUSCULAR VOLUME 93 fL (79.0-98.0); MONOCYTES # (AUTO) 0.4 K/uL (0.0-1.0); MONOCYTES % (AUTO) 8.3 % (1.7-9.3); NEUTROPHILS # (AUTO) 2.7 K/uL (1.8-7.7); NEUTROPHILS % (AUTO) 53.6 % (40.0-70.0); PLATELET COUNT (AUTO) 199 K/uL (130-430); RED BLOOD CELL COUNT(AUTO) 3.74 MIL/uL (4.2-6.2); RED CELL DISTRIBUTION WIDTH 12.9 % (9.0-15.0); WHITE BLOOD COUNT (AUTO) 4.9 K/uL (4.8-10.8)
[2018-07-24 06:52] LABS: ALBUMIN 2.8 g/dL (3.4-4.8); CALCIUM 8.4 mg/dL (8.4-11.0); CREATININE 0.68 mg/dL (0.55-1.30); POTASSIUM 3.9 mmol/L (3.5-5.1); TOTAL BILIRUBIN 0.3 mg/dL (0.0-1.0)
[2018-07-24] MEDS: POLYETHYLENE GLYCOL 3350, 17 GM/ POWD.PACK PO SCH (08:04)
[2018-07-24] MEDS: FAMOTIDINE 20 MG TABLET PO SCH (08:04)
[2018-07-24] MEDS: BISACODYL 5 MG TABLET.DR (DULCOLAX) PO SCH (08:05)
[2018-07-24] MEDS ORDERED: PANTOPRAZOLE GRANULES PACKET 40 MG GT SCH (09:00)
[2018-07-24] MEDS ORDERED: IPRATROPIUM/ALBUTEROL SULFATE 3 ML AMPUL.NEB INH PRN (09:00)
[2018-07-24] MEDS: LORazepam 1 MG TABLET PO PRN ×2 (09:42→17:32)
[2018-07-24] MEDS: amLODIPine BESYLATE 10 MG TABLET PO SCH (21:00)
[2018-07-24] MEDS: QUEtiapine FUMARATE 100 MG TABLET PO SCH (21:12)
[2018-07-25 01:08] VITALS: BP_SYST 129
[2018-07-25] MEDS: LORazepam 1 MG TABLET PO PRN ×3 (02:27→19:16)
[2018-07-25] MEDS: ONDANSETRON HCL 4 MG/2 ML VIAL IVP PRN ×2 (05:51→12:23)
[2018-07-25] MEDS: NACL 0.9% 1,000 ML IV SCH (05:52)
[2018-07-25] MEDS: MORPHINE 2 MG/ML INJ. SYRINGE IVP PRN ×3 (06:12→17:50)
[2018-07-25 07:33] LABS: BASOPHILS % (AUTO) 0.3 % (0.0-2.0); EOSINOPHILS # (AUTO) 0.1 K/uL (0.0-0.4); EOSINOPHILS % (AUTO) 2.3 % (0.0-4.0); HEMATOCRIT 39.5 % (36-48); HEMOGLOBIN 12.9 g/dL (12.0-16.0); LYMPHOCYTES # (AUTO) 1.2 K/uL (1.0-5.5); LYMPHOCYTES % (AUTO) 17.9 % (20.5-51.5); MEAN CORPUSCULAR HEMOGLOBIN 30 pg (27-31); MEAN CORPUSCULAR HGB CONC 33 % (32-36); MEAN CORPUSCULAR VOLUME 92 fL (79.0-98.0); MONOCYTES # (AUTO) 0.5 K/uL (0.0-1.0); MONOCYTES % (AUTO) 7.3 % (1.7-9.3); NEUTROPHILS # (AUTO) 4.6 K/uL (1.8-7.7); NEUTROPHILS % (AUTO) 72.2 % (40.0-70.0); PLATELET COUNT (AUTO) 236 K/uL (130-430); RED CELL DISTRIBUTION WIDTH 12.6 % (9.0-15.0); WHITE BLOOD COUNT (AUTO) 6.4 K/uL (4.8-10.8)
[2018-07-25 07:49] LABS: ALBUMIN 3.2 g/dL (3.4-4.8); CALCIUM 8.9 mg/dL (8.4-11.0); CREATININE 0.44 mg/dL (0.55-1.30); POTASSIUM 3.8 mmol/L (3.5-5.1); TOTAL BILIRUBIN 0.5 mg/dL (0.0-1.0)
[2018-07-25 08:08] VITALS: BP_SYST 147
[2018-07-25] MEDS: FAMOTIDINE 20 MG TABLET PO SCH (08:51)
[2018-07-25] MEDS: BISACODYL 5 MG TABLET.DR (DULCOLAX) PO SCH (08:52)
[2018-07-25] MEDS: POLYETHYLENE GLYCOL 3350, 17 GM/ POWD.PACK PO SCH (08:52)
[2018-07-25] MEDS ORDERED: PANTOPRAZOLE GRANULES PACKET 40 MG PO ONE (09:00)
[2018-07-25 11:55] VITALS: BP_SYST 148
[2018-07-25 15:00] VITALS: BP_SYST 142
[2018-07-25] MEDS ORDERED: traZODone HCL 50 MG TABLET (DESYREL) PO PRN (15:30)
[2018-07-25 17:39] VITALS: BP_SYST 142
[2018-07-25] MEDS: amLODIPine BESYLATE 10 MG TABLET PO SCH (20:24)
[2018-07-25] MEDS: QUEtiapine FUMARATE 100 MG TABLET PO SCH (20:24)
[2018-07-25 20:38] VITALS: BP_SYST 141
[2018-07-26] MEDS ORDERED: PANTOPRAZOLE GRANULES PACKET 40 MG PO SCH (06:00)
== END 2018-07-25 21:38 | DRG 640 ==
LOC: SED 05:28 → SMU 12:18
PROVIDERS: ADMIT Internal Medicine; ATTEND Internal Medicine
DX: E86.0 Dehydration (principal); E43 Unspecified severe protein-calorie malnutrition; Z68.1 Body mass index [BMI] 19.9 or less, adult; R55 Syncope and collapse; F41.9 Anxiety disorder, unspecified; R29.6 Repeated falls; I10 Essential (primary) hypertension; R42 Dizziness and giddiness; F32.9 Major depressive disorder, single episode, unspecified; G89.29 Other chronic pain; J44.9 Chronic obstructive pulmonary disease, unspecified; Z93.3 Colostomy status; Z90.49 Acquired absence of other specified parts of digestive tract; Z88.2 Allergy status to sulfonamides; Z87.440 Personal history of urinary (tract) infections; Z79.899 Other long term (current) drug therapy
CPT/HCPCS: 36415; 71045; 80053; 81003; 83690-TC; 83880; 84484; 85025; 85610-TC; 85730-TC; 87081; 93005; 96361; 96374; 96375; 99285; A4371; A4409; J2270; J2405; J7030

== ENCOUNTER 2018-09-26 04:35 | Emergency (ER) | payer OTHER ==
[~2018-09-26] VITALS: Ht 152.4 cm; Wt 39.5 kg
[2018-09-26 04:35] VITALS: BP_SYST 145
[~2018-09-26 04:35] MED LIST changes: +ASCO1TAB39 PO; +BISA-79 PO; +CAT.1 PO; +CEL20 PO; +ESCI10TA54 PO; +FAMO20TA8 PO; +HYDR-3606 PO; +IBUP-1969 PO; +LORA-258 PO; +LUBI24CA5 PO; +NOR10 PO; +ONDA4TAB5 PO; +SER100 PO; -TRAZ-123 PO
[2018-09-26] MEDS ORDERED: TRAZ-126 PO (04:59)
[2018-09-26] MEDS ORDERED: ONDANSETRON HCL 4 MG/2 ML VIAL IVP ONE (05:15)
[2018-09-26] MEDS ORDERED: MORPHINE 4 MG/ML INJ. SYRINGE IVP ONE (05:15)
[2018-09-26] MEDS ORDERED: KETOROLAC TROMETHAMINE 15 MG VIAL IVP ONE (05:45)
[2018-09-26 06:50] VITALS: BP_SYST 141
== END 2018-09-26 06:50 | disposition home or self-care (01) ==
LOC: SED 04:35
DX: G89.29 Other chronic pain (principal); M54.5 Low back pain; M54.6 Pain in thoracic spine; F32.9 Major depressive disorder, single episode, unspecified; I10 Essential (primary) hypertension; Z79.899 Other long term (current) drug therapy; Z88.2 Allergy status to sulfonamides
CPT/HCPCS: 72128; 72131; 96374; 96375; 99284; J1885; J2270; J2405

== ENCOUNTER 2019-02-02 08:10 | Emergency (ER) | payer OTHER ==
[~2019-02-02] VITALS: Ht 157.5 cm; Wt 47.2 kg
[~2019-02-02 08:10] MED LIST changes: -ESCI10TA54 PO; -LORA-258 PO; -QUET50TA PO; +TRAZ-219 PO
[2019-02-02 08:13] VITALS: BP_SYST 164
--- NOTE | 2019-02-02 08:13 | NUR ---
Patient to ER bed 5 to gown for evaluation. Side rails up. Report given to Romain JONES.
--- NOTE | 2019-02-02 08:25 | NUR ---
Patient awake, alert, oriented x 4. Patient complaining of sharp lower abdominal pain 7/10. Patient states she feels very anxious. MD is aware. No signs or symptoms of distress noted.
--- NOTE | 2019-02-02 08:30 | NUR ---
PANCHO Hernandes at bedside examining patient.
[2019-02-02] MEDS ORDERED: LORazepam 2 MG/ML VIAL (FOR ER USE) IVP ONE ×2 (08:45→10:45)
[2019-02-02] MEDS ORDERED: ONDANSETRON HCL 4 MG/2 ML VIAL IVP ONE (08:45)
[2019-02-02] MEDS ORDERED: NACL 0.9% 1,000 ML IV ONE (08:45)
[2019-02-02 09:17] LABS: HEMATOCRIT 40.2 % (36-48); HEMOGLOBIN 12.9 g/dL (12.0-16.0); MEAN CORPUSCULAR HEMOGLOBIN 26 pg (27-31); MEAN CORPUSCULAR HGB CONC 32 % (32-36); MEAN CORPUSCULAR VOLUME 81 fL (79.0-98.0); RED BLOOD CELL COUNT(AUTO) 4.96 MIL/uL (4.2-6.2); WHITE BLOOD COUNT (AUTO) 6.7 K/uL (4.8-10.8)
[2019-02-02 09:18] LABS: BASOPHILS % (AUTO) 0.5 % (0.0-2.0); EOSINOPHILS # (AUTO) 0.1 K/uL (0.0-0.4); EOSINOPHILS % (AUTO) 1.5 % (0.0-4.0); LYMPHOCYTES # (AUTO) 1.1 K/uL (1.0-5.5); LYMPHOCYTES % (AUTO) 16.3 % (20.5-51.5); MONOCYTES # (AUTO) 0.6 K/uL (0.0-1.0); NEUTROPHILS # (AUTO) 4.8 K/uL (1.8-7.7); NEUTROPHILS % (AUTO) 72.7 % (40.0-70.0); PLATELET COUNT (AUTO) 252 K/uL (130-430); RED CELL DISTRIBUTION WIDTH 15.4 % (9.0-15.0)
[2019-02-02 09:19] LABS: CREATININE 0.75 mg/dL (0.55-1.30); POTASSIUM 3.9 mmol/L (3.5-5.1)
[2019-02-02 09:25] LABS: ALBUMIN 3.6 g/dL (3.4-4.8); CALCIUM 9.1 mg/dL (8.4-11.0); TOTAL BILIRUBIN 0.4 mg/dL (0.0-1.0)
--- NOTE | 2019-02-02 09:50 | NUR ---
Pt medicated for anxiety and nausea
[2019-02-02] MEDS ORDERED: ACETAMINOPHEN 500 MG TABLET PO ONE (10:00)
--- NOTE | 2019-02-02 10:30 | NUR ---
Pt reports nausea resolved and anxiety is diminished
[2019-02-02 10:35] LABS: BILIRUBIN,URINE NEGATIVE (NEGATIVE); BLOOD, URINE NEGATIVE (NEGATIVE); CLARITY/URINE CLEAR (CLEAR); COLOR,URINE YELLOW (YELLOW); GLUCOSE,URINE NEGATIVE (NEGATIVE); KETONES,URINE NEGATIVE (NEGATIVE); LEUKOCYTE ESTERASE ,URINE NEGATIVE (NEGATIVE); NITRITE, URINE NEGATIVE (NEGATIVE); PH,URINE 6.5 (5.0-8.0); PROTEIN URINE NEGATIVE (NEGATIVE); UROBILINOGEN,URINE 0.2 (0.2-1.0)
--- NOTE | 2019-02-02 10:46 | NUR ---
Social Service Note: MINE MOTOR ENGINEER called to ED to meet with pt due to pt have anxiety. MINE MOTOR ENGINEER met with pt at bedside; pt's speech is pressured and quick. Pt states that she has anxiety and her PCP prescribes her Ativan. Pt states that she does not see a psychiatrist or therapist. MINE MOTOR ENGINEER spoke with pt about the benefits of finding a therapist and a psychiatrist to help manage her medications. MINE MOTOR ENGINEER encouraged pt to make an appointment with her PCP to obtain a referral to a psychiatrist. MINE MOTOR ENGINEER provided pt with outpatient mental health providers resource list. Pt denies any thoughts of hurting herself. CELINE has spoken to ED physician to provide update. MINE MOTOR ENGINEER will remain available for support and will follow up as needed.
--- NOTE | 2019-02-02 11:20 | NUR ---
Pt has no acute distress noted.Pt seen by Niharika social security benefits interviewer.
[2019-02-02 12:00] VITALS: BP_SYST 160
--- NOTE | 2019-02-02 12:00 | NUR ---
Patient given written and verbal discharge instructions and verbalizes understanding. ER MD discussed with patient the results and treatment provided. Patient in stable condition. ID arm band removed. IV catheter removed intact and dressing applied, no active bleeding. Rx of MiraLax Powder given. Patient educated on pain management and to follow up with PMD. Pain Scale 0/10. Opportunity for questions provided and answered. Medication side effect fact sheet provided.
== END 2019-02-02 12:00 | disposition home or self-care (01) ==
LOC: SED 08:10
DX: K59.00 Constipation, unspecified (principal); F41.9 Anxiety disorder, unspecified; J44.9 Chronic obstructive pulmonary disease, unspecified; I10 Essential (primary) hypertension; F32.9 Major depressive disorder, single episode, unspecified; Z88.2 Allergy status to sulfonamides; Z79.899 Other long term (current) drug therapy
CPT/HCPCS: 36415; 74176; 80053; 81003; 83690; 85025; 96374; 96375; 99284; J2060; J2405; J7030

== ENCOUNTER 2019-04-06 13:49 | Emergency (ER) | payer OTHER ==
[~2019-04-06] VITALS: Ht 152.4 cm; Wt 46.7 kg
[2019-04-06 14:00] VITALS: BP_SYST 127
[2019-04-06] MEDS ORDERED: MORPHINE 2 MG/ML INJ. SYRINGE IVP ONE (14:15)
[2019-04-06] MEDS ORDERED: DIPHENHYDRAMINE INJ 50 MG/ML VIAL IVP ONE (14:15)
[2019-04-06 14:51] LABS: BASOPHILS % (AUTO) 0.3 % (0.0-2.0); EOSINOPHILS # (AUTO) 0.1 K/uL (0.0-0.4); EOSINOPHILS % (AUTO) 1.4 % (0.0-4.0); HEMATOCRIT 34.7 % (36-48); HEMOGLOBIN 11.4 g/dL (12.0-16.0); LYMPHOCYTES # (AUTO) 1.3 K/uL (1.0-5.5); LYMPHOCYTES % (AUTO) 20.2 % (20.5-51.5); MEAN CORPUSCULAR HEMOGLOBIN 26 pg (27-31); MEAN CORPUSCULAR HGB CONC 33 % (32-36); MEAN CORPUSCULAR VOLUME 81 fL (79.0-98.0); MONOCYTES # (AUTO) 0.6 K/uL (0.0-1.0); MONOCYTES % (AUTO) 8.6 % (1.7-9.3); NEUTROPHILS # (AUTO) 4.5 K/uL (1.8-7.7); NEUTROPHILS % (AUTO) 69.5 % (40.0-70.0); PLATELET COUNT (AUTO) 282 K/uL (130-430); RED CELL DISTRIBUTION WIDTH 17.2 % (9.0-15.0); WHITE BLOOD COUNT (AUTO) 6.5 K/uL (4.8-10.8)
[2019-04-06 14:54] LABS: CREATININE 0.79 mg/dL (0.55-1.30); POTASSIUM 3.7 mmol/L (3.5-5.1); PROTHROMBIN TIME 10.6 SECS (9.5-12.5)
[2019-04-06 14:58] LABS: ALBUMIN 3.7 g/dL (3.4-4.8); TOTAL BILIRUBIN 0.4 mg/dL (0.0-1.0)
[2019-04-06 15:22] LABS: BILIRUBIN,URINE NEGATIVE (NEGATIVE); BLOOD, URINE NEGATIVE (NEGATIVE); CLARITY/URINE CLEAR (CLEAR); COLOR,URINE YELLOW (YELLOW); GLUCOSE,URINE NEGATIVE (NEGATIVE); KETONES,URINE NEGATIVE (NEGATIVE); LEUKOCYTE ESTERASE ,URINE NEGATIVE (NEGATIVE); NITRITE, URINE NEGATIVE (NEGATIVE); PROTEIN URINE NEGATIVE (NEGATIVE); UROBILINOGEN,URINE 0.2 (0.2-1.0)
[2019-04-06] MEDS ORDERED: LORazepam 2 MG/ML VIAL (FOR ER USE) IVP ONE (16:30)
[2019-04-06] MEDS ORDERED: KETOROLAC TROMETHAMINE 30 MG VIAL IVP ONE (16:30)
[2019-04-06] MEDS ORDERED: HYDROcodone/ACETAMIN 5-325 MG TAB (NORCO/ VICODIN) PO ONE (16:30)
[2019-04-06] MEDS ORDERED: MAGNESIUM CITRATE 300 ML ORAL SOLUTION PO ONE (17:00)
[2019-04-06 17:02] VITALS: BP_SYST 149
== END 2019-04-06 16:58 | disposition home or self-care (01) ==
LOC: SED 13:49
DX: R10.84 Generalized abdominal pain (principal); J44.9 Chronic obstructive pulmonary disease, unspecified; I10 Essential (primary) hypertension; F32.9 Major depressive disorder, single episode, unspecified; F41.9 Anxiety disorder, unspecified; Z88.2 Allergy status to sulfonamides; Z79.899 Other long term (current) drug therapy
CPT/HCPCS: 36415; 71045; 74176; 80053; 81003; 83605; 83690; 85025; 85610; 87040; 93005; 96374; 96375; 99284; J1200; J1885; J2060; J2270

== ENCOUNTER 2019-04-16 09:52 | Inpatient (IN) | payer OTHER ==
[~2019-04-16] VITALS: Ht 154.9 cm; Wt 46.7 kg
[2019-04-16 09:52] VITALS: BP_SYST 158
[2019-04-16] MEDS ORDERED: NACL 0.9% 1,000 ML IV ONE (11:27)
[2019-04-16] MEDS ORDERED: LORazepam 2 MG/ML VIAL (FOR ER USE) IVP ONE ×2 (11:30→12:45)
[2019-04-16] MEDS ORDERED: KETOROLAC TROMETHAMINE 30 MG VIAL IVP ONE (11:30)
[2019-04-16 12:04] LABS: BASOPHILS % (AUTO) 0.6 % (0.0-2.0); EOSINOPHILS % (AUTO) 0.6 % (0.0-4.0); HEMATOCRIT 39.5 % (36-48); HEMOGLOBIN 12.7 g/dL (12.0-16.0); LYMPHOCYTES % (AUTO) 13.6 % (20.5-51.5); MEAN CORPUSCULAR HEMOGLOBIN 26 pg (27-31); MEAN CORPUSCULAR HGB CONC 32 % (32-36); MEAN CORPUSCULAR VOLUME 82 fL (79.0-98.0); MONOCYTES # (AUTO) 0.5 K/uL (0.0-1.0); MONOCYTES % (AUTO) 6.4 % (1.7-9.3); NEUTROPHILS % (AUTO) 78.8 % (40.0-70.0); PLATELET COUNT (AUTO) 254 K/uL (130-430); RED BLOOD CELL COUNT(AUTO) 4.85 MIL/uL (4.2-6.2); RED CELL DISTRIBUTION WIDTH 17.5 % (9.0-15.0); WHITE BLOOD COUNT (AUTO) 7.6 K/uL (4.8-10.8)
[2019-04-16 12:10] LABS: CALCIUM 9.5 mg/dL (8.4-11.0); CREATININE 0.73 mg/dL (0.55-1.30); POTASSIUM 4.1 mmol/L (3.5-5.1)
[2019-04-16 12:14] LABS: ALBUMIN 4.1 g/dL (3.4-4.8); TOTAL BILIRUBIN 0.6 mg/dL (0.0-1.0)
[2019-04-16] MEDS ORDERED: KETAMINE 30 MG/3 ML SYRINGE IVP ONE (14:00)
[2019-04-16] MEDS ORDERED: fentaNYL CITRATE/PF 100 MCG/2 ML AMP IVP ONE (15:00)
[2019-04-16] MEDS ORDERED: NEOSTIGMINE METHYLSULFATE 1 MG/ML, 10 ML VIAL IVP ONE (15:10)
[2019-04-16] MEDS ORDERED: BUPIVACAINE /PF 0.5% 30 ML VIAL INJ ONE (15:10)
[2019-04-16] MEDS ORDERED: PROPOFOL 200MG/ 20ML VIAL (DIPRIVAN) IV ONE (15:10)
[2019-04-16] MEDS ORDERED: ROCURONIUM BROMIDE 10 MG/ML (ZEMURON) IV ONE (15:10)
[2019-04-16] MEDS ORDERED: LIDOCAINE 2%, 20 ML MDV INJ ONE (15:10)
[2019-04-16] MEDS ORDERED: BUPIVACAINE /EPINEPHRINE/PF 0.25% 30 ML VIAL INJ ONE (15:10)
[2019-04-16] MEDS ORDERED: ONDANSETRON HCL 4 MG/2 ML VIAL IVP ONE (15:10)
[2019-04-16] MEDS ORDERED: LR 1,000 ML IV.SOLN IV ONE (15:10)
[2019-04-16] MEDS ORDERED: SEVOFLURANE 15 MIN GAS INH ONE (15:10)
[2019-04-16] MEDS ORDERED: MIDAZOLAM HCL 5 MG/5 ML VIAL IVP ONE (15:10)
[2019-04-16] MEDS ORDERED: GLYCOPYRROLATE 0.2 MG/ML VIAL IJ ONE (15:10)
[2019-04-16] MEDS ORDERED: MEPERIDINE HCL/PF 100 MG/ML AMP IM ONE (15:10)
[2019-04-16] MEDS ORDERED: DIPHENHYDRAMINE INJ 50 MG/ML VIAL IVP ONE (16:15)
[2019-04-16] MEDS ORDERED: MORPHINE 2 MG/ML INJ. SYRINGE IVP PRN (17:00)
[2019-04-16] MEDS ORDERED: LORA10TA7 PO (17:51)
[2019-04-16] MEDS ORDERED: PANT20TA2 PO (17:51)
[2019-04-16] MEDS: NACL 0.9% 1,000 ML IV SCH (19:07)
[2019-04-16] MEDS: MORPHINE 2 MG/ML INJ. SYRINGE IVP PRN (19:08)
[2019-04-16 19:09] VITALS: BP_SYST 144
[2019-04-16] MEDS ORDERED: ALBUTEROL SULFATE 0.083% 2.5 MG/3 ML VIAL.NEB INH PRN (23:45)
[2019-04-16] MEDS ORDERED: ACETAMINOPHEN 325 MG TABLET PO PRN (23:45)
[2019-04-17 00:07] VITALS: BP_SYST 144
[2019-04-17] MEDS ORDERED: AMPICILLIN SODIUM/SULBACTAM NA 3 GM VIAL ONE (00:37)
[2019-04-17] MEDS: AMPICILLIN SODIUM/SULBACTAM NA 3 GM in NS 100 ML IV SCH ×4 (00:42→16:55)
[2019-04-17] MEDS ORDERED: traZODone HCL 50 MG TABLET (DESYREL) PO SCH ×2 (01:00→09:00)
[2019-04-17] MEDS ORDERED: QUEtiapine FUMARATE 100 MG TABLET PO SCH (01:00)
[2019-04-17] MEDS ORDERED: QUEtiapine FUMARATE 100 MG TABLET PO ONE (01:00)
[2019-04-17 01:14] VITALS: BP_SYST 142
[2019-04-17] MEDS: LORazepam 1 MG TABLET PO PRN ×2 (06:51→21:06)
[2019-04-17] MEDS: NACL 0.9% 1,000 ML IV SCH ×2 (06:51→21:07)
[2019-04-17] MEDS: PANTOPRAZOLE SODIUM 40 MG TAB PO SCH (06:54)
[2019-04-17 08:05] VITALS: BP_SYST 135
[2019-04-17] MEDS: LORATADINE 10 MG TABLET PO SCH (09:00)
[2019-04-17] MEDS: QUEtiapine FUMARATE 25 MG TABLET PO SCH (09:27)
[2019-04-17] MEDS: BISACODYL 5 MG TABLET.DR (DULCOLAX) PO SCH (09:27)
[2019-04-17] MEDS: POLYETHYLENE GLYCOL 3350, 17 GM/ POWD.PACK PO SCH ×2 (09:27→21:00)
[2019-04-17] MEDS: ONDANSETRON HCL 4 MG/2 ML VIAL IVP PRN (09:28)
[2019-04-17 11:39] VITALS: BP_SYST 140
[2019-04-17] MEDS: LORazepam 2 MG/ML VIAL IVP PRN ×2 (11:46→15:47)
[2019-04-17] MEDS: MORPHINE 2 MG/ML INJ. SYRINGE IVP PRN ×3 (12:47→22:37)
[2019-04-17 15:49] VITALS: BP_SYST 139
[2019-04-17] MEDS ORDERED: MORPHINE 2 MG/ML INJ. SYRINGE IVP ONE (18:30)
[2019-04-17 21:00] VITALS: BP_SYST 157
[2019-04-17] MEDS: QUEtiapine FUMARATE 100 MG TABLET PO SCH (21:06)
[2019-04-17] MEDS: traZODone HCL 50 MG TABLET (DESYREL) PO SCH (21:07)
[2019-04-18] MEDS: AMPICILLIN SODIUM/SULBACTAM NA 3 GM in NS 100 ML IV SCH ×4 (00:13→18:11)
[2019-04-18 00:45] VITALS: BP_SYST 123
[2019-04-18] MEDS: MORPHINE 2 MG/ML INJ. SYRINGE IVP PRN (05:25)
[2019-04-18] MEDS: PANTOPRAZOLE SODIUM 40 MG TAB PO SCH (06:09)
[2019-04-18 08:00] VITALS: BP_SYST 134
[2019-04-18] MEDS: POLYETHYLENE GLYCOL 3350, 17 GM/ POWD.PACK PO SCH ×3 (09:00→21:17)
[2019-04-18] MEDS: LORATADINE 10 MG TABLET PO SCH (09:00)
[2019-04-18] MEDS: BISACODYL 5 MG TABLET.DR (DULCOLAX) PO SCH (09:01)
[2019-04-18] MEDS: QUEtiapine FUMARATE 25 MG TABLET PO SCH (09:01)
[2019-04-18] MEDS: NACL 0.9% 1,000 ML IV SCH ×3 (09:05→21:16)
[2019-04-18] MEDS: ONDANSETRON HCL 4 MG/2 ML VIAL IVP PRN (09:05)
[2019-04-18] MEDS: MORPHINE 4 MG/ML INJ. SYRINGE IVP PRN ×2 (10:53→16:37)
[2019-04-18 10:58] VITALS: BP_SYST 140
[2019-04-18 11:42] VITALS: BP_SYST 141
[2019-04-18] MEDS: DIPHENHYDRAMINE INJ 50 MG/ML VIAL IVP PRN ×2 (11:58→18:11)
[2019-04-18] MEDS: LORazepam 2 MG/ML VIAL IVP PRN (15:36)
[2019-04-18 16:07] VITALS: BP_SYST 147
[2019-04-18] MEDS: traZODone HCL 50 MG TABLET (DESYREL) PO SCH (21:17)
[2019-04-18] MEDS: QUEtiapine FUMARATE 100 MG TABLET PO SCH (21:17)
[2019-04-18 21:26] VITALS: BP_SYST 156
[2019-04-19] MEDS: AMPICILLIN SODIUM/SULBACTAM NA 3 GM in NS 100 ML IV SCH ×4 (00:03→17:04)
[2019-04-19] MEDS: PANTOPRAZOLE SODIUM 40 MG TAB PO SCH (05:32)
[2019-04-19] MEDS: ONDANSETRON HCL 4 MG/2 ML VIAL IVP PRN (05:37)
[2019-04-19] MEDS: DIPHENHYDRAMINE INJ 50 MG/ML VIAL IVP PRN ×3 (05:37→19:43)
[2019-04-19] MEDS: MORPHINE 4 MG/ML INJ. SYRINGE IVP PRN ×3 (05:41→19:42)
[2019-04-19 08:00] VITALS: BP_SYST 142
[2019-04-19] MEDS: LORATADINE 10 MG TABLET PO SCH (09:00)
[2019-04-19] MEDS: BISACODYL 5 MG TABLET.DR (DULCOLAX) PO SCH (09:00)
[2019-04-19] MEDS: POLYETHYLENE GLYCOL 3350, 17 GM/ POWD.PACK PO SCH ×2 (09:00→20:51)
[2019-04-19] MEDS: QUEtiapine FUMARATE 25 MG TABLET PO SCH (09:09)
[2019-04-19] MEDS: LORazepam 2 MG/ML VIAL IVP PRN ×3 (09:10→22:12)
[2019-04-19] MEDS: NACL 0.9% 1,000 ML IV SCH ×2 (09:17→16:00)
[2019-04-19 13:11] VITALS: BP_SYST 149
[2019-04-19 15:42] VITALS: BP_SYST 158
[2019-04-19 19:00] VITALS: BP_SYST 144
[2019-04-19 20:00] VITALS: BP_SYST 144
[2019-04-19] MEDS: traZODone HCL 50 MG TABLET (DESYREL) PO SCH (20:51)
[2019-04-19] MEDS: QUEtiapine FUMARATE 100 MG TABLET PO SCH (20:51)
[2019-04-20] VITALS (7 sets, daily range): BP systolic 118–157
[2019-04-20] MEDS: NACL 0.9% 1,000 ML IV SCH ×3 (00:41→21:37)
[2019-04-20] MEDS: AMPICILLIN SODIUM/SULBACTAM NA 3 GM in NS 100 ML IV SCH ×5 (00:42→23:22)
[2019-04-20] MEDS: MORPHINE 4 MG/ML INJ. SYRINGE IVP PRN ×4 (05:31→21:34)
[2019-04-20] MEDS: DIPHENHYDRAMINE INJ 50 MG/ML VIAL IVP PRN ×3 (05:33→23:22)
[2019-04-20] MEDS: PANTOPRAZOLE SODIUM 40 MG TAB PO SCH (05:35)
[2019-04-20] MEDS: ONDANSETRON HCL 4 MG/2 ML VIAL IVP PRN (08:08)
[2019-04-20] MEDS: BISACODYL 5 MG TABLET.DR (DULCOLAX) PO SCH (08:08)
[2019-04-20] MEDS: QUEtiapine FUMARATE 25 MG TABLET PO SCH (08:08)
[2019-04-20] MEDS: LORazepam 2 MG/ML VIAL IVP PRN ×3 (08:09→20:06)
[2019-04-20] MEDS: LORATADINE 10 MG TABLET PO SCH (08:16)
[2019-04-20] MEDS: POLYETHYLENE GLYCOL 3350, 17 GM/ POWD.PACK PO SCH ×2 (08:16→21:00)
[2019-04-20] MEDS ORDERED: MAGNESIUM CITRATE 300 ML ORAL SOLUTION PO ONE (18:45)
[2019-04-20] MEDS ORDERED: DIAZEPAM 5 MG TABLET (VALIUM) PO PRN (20:00)
[2019-04-20] MEDS: QUEtiapine FUMARATE 100 MG TABLET PO SCH (21:37)
[2019-04-20] MEDS: traZODone HCL 50 MG TABLET (DESYREL) PO SCH (21:37)
[2019-04-21] MEDS: MORPHINE 4 MG/ML INJ. SYRINGE IVP PRN ×4 (05:31→22:48)
[2019-04-21] MEDS: DIPHENHYDRAMINE INJ 50 MG/ML VIAL IVP PRN ×2 (05:32→11:39)
[2019-04-21] MEDS: ONDANSETRON HCL 4 MG/2 ML VIAL IVP PRN (05:32)
[2019-04-21] MEDS: AMPICILLIN SODIUM/SULBACTAM NA 3 GM in NS 100 ML IV SCH ×3 (05:33→23:49)
[2019-04-21 06:45] VITALS: BP_SYST 159
[2019-04-21] MEDS: PANTOPRAZOLE SODIUM 40 MG TAB PO SCH (06:49)
[2019-04-21 07:45] VITALS: BP_SYST 159
[2019-04-21 07:51] LABS: BILIRUBIN,URINE NEGATIVE (NEGATIVE); BLOOD, URINE NEGATIVE (NEGATIVE); CLARITY/URINE CLEAR (CLEAR); COLOR,URINE YELLOW (YELLOW); GLUCOSE,URINE NEGATIVE (NEGATIVE); KETONES,URINE NEGATIVE (NEGATIVE); LEUKOCYTE ESTERASE ,URINE NEGATIVE (NEGATIVE); NITRITE, URINE NEGATIVE (NEGATIVE); PROTEIN URINE NEGATIVE (NEGATIVE); UROBILINOGEN,URINE 0.2 (0.2-1.0)
[2019-04-21 08:50] LABS: PROTHROMBIN TIME 10.5 SECS (9.5-12.5)
[2019-04-21] MEDS: POLYETHYLENE GLYCOL 3350, 17 GM/ POWD.PACK PO SCH ×2 (09:00→21:21)
[2019-04-21] MEDS: QUEtiapine FUMARATE 25 MG TABLET PO SCH (09:00)
[2019-04-21] MEDS: LORATADINE 10 MG TABLET PO SCH (09:00)
[2019-04-21] MEDS: BISACODYL 5 MG TABLET.DR (DULCOLAX) PO SCH (09:00)
[2019-04-21] MEDS: LORazepam 2 MG/ML VIAL IVP PRN ×2 (09:18→23:56)
[2019-04-21] MEDS: NACL 0.9% 1,000 ML IV SCH ×2 (09:26→21:17)
[2019-04-21] MEDS ORDERED: ONDANSETRON HCL 4 MG/2 ML VIAL IVP PRN (14:00)
[2019-04-21] MEDS ORDERED: fentaNYL CITRATE/PF 100 MCG/2 ML AMP IVP PRN ×2 (14:00)
[2019-04-21] MEDS ORDERED: KETOROLAC TROMETHAMINE 30 MG VIAL IVP PRN (14:00)
[2019-04-21 14:30] VITALS: BP_SYST 151
[2019-04-21] MEDS ORDERED: POLYMYXIN 500,000/BACIT.10,000 UNITS in NS IRR 1 L IR ONE (15:19)
[2019-04-21] MEDS ORDERED: fentaNYL CITRATE/PF 100 MCG/2 ML AMP ONE (20:36)
[2019-04-21 21:00] VITALS: BP_SYST 109
[2019-04-21] MEDS: QUEtiapine FUMARATE 100 MG TABLET PO SCH (21:21)
[2019-04-21] MEDS: traZODone HCL 50 MG TABLET (DESYREL) PO SCH (21:21)
[2019-04-22] MEDS: DIPHENHYDRAMINE INJ 50 MG/ML VIAL IVP PRN ×3 (02:40→17:18)
[2019-04-22] MEDS: MORPHINE 4 MG/ML INJ. SYRINGE IVP PRN ×4 (02:41→17:19)
[2019-04-22 02:47] VITALS: BP_SYST 163
[2019-04-22] MEDS: NACL 0.9% 1,000 ML IV SCH ×4 (04:00→20:32)
[2019-04-22] MEDS: PANTOPRAZOLE SODIUM 40 MG TAB PO SCH (06:26)
[2019-04-22] MEDS: AMPICILLIN SODIUM/SULBACTAM NA 3 GM in NS 100 ML IV SCH ×4 (06:27→23:54)
[2019-04-22 08:13] VITALS: BP_SYST 147
[2019-04-22] MEDS: BISACODYL 5 MG TABLET.DR (DULCOLAX) PO SCH (09:22)
[2019-04-22] MEDS: LORATADINE 10 MG TABLET PO SCH (09:22)
[2019-04-22] MEDS: QUEtiapine FUMARATE 25 MG TABLET PO SCH (09:23)
[2019-04-22] MEDS: POLYETHYLENE GLYCOL 3350, 17 GM/ POWD.PACK PO SCH ×2 (09:23→20:32)
[2019-04-22] MEDS: LORazepam 2 MG/ML VIAL IVP PRN ×3 (09:23→20:33)
[2019-04-22 11:24] VITALS: BP_SYST 142
[2019-04-22 15:38] VITALS: BP_SYST 141
[2019-04-22 20:00] VITALS: BP_SYST 138
[2019-04-22] MEDS: QUEtiapine FUMARATE 100 MG TABLET PO SCH (20:32)
[2019-04-22] MEDS: traZODone HCL 50 MG TABLET (DESYREL) PO SCH (20:33)
[2019-04-23 00:18] VITALS: BP_SYST 132
[2019-04-23] MEDS: MORPHINE 4 MG/ML INJ. SYRINGE IVP PRN ×5 (03:33→22:15)
[2019-04-23] MEDS: DIPHENHYDRAMINE INJ 50 MG/ML VIAL IVP PRN ×4 (03:34→17:43)
[2019-04-23] MEDS: NACL 0.9% 1,000 ML IV SCH ×2 (06:37→22:15)
[2019-04-23] MEDS: AMPICILLIN SODIUM/SULBACTAM NA 3 GM in NS 100 ML IV SCH ×3 (06:38→17:43)
[2019-04-23] MEDS: PANTOPRAZOLE SODIUM 40 MG TAB PO SCH (06:40)
[2019-04-23 06:52] LABS: BASOPHILS % (AUTO) 0.2 % (0.0-2.0); EOSINOPHILS % (AUTO) 0.6 % (0.0-4.0); HEMATOCRIT 32.1 % (36-48); HEMOGLOBIN 10.5 g/dL (12.0-16.0); LYMPHOCYTES # (AUTO) 0.8 K/uL (1.0-5.5); MEAN CORPUSCULAR HEMOGLOBIN 27 pg (27-31); MEAN CORPUSCULAR HGB CONC 33 % (32-36); MEAN CORPUSCULAR VOLUME 82 fL (79.0-98.0); MONOCYTES # (AUTO) 0.7 K/uL (0.0-1.0); NEUTROPHILS # (AUTO) 4.4 K/uL (1.8-7.7); NEUTROPHILS % (AUTO) 74.2 % (40.0-70.0); PLATELET COUNT (AUTO) 155 K/uL (130-430); RED BLOOD CELL COUNT(AUTO) 3.94 MIL/uL (4.2-6.2); RED CELL DISTRIBUTION WIDTH 17.7 % (9.0-15.0)
[2019-04-23 07:18] LABS: ALBUMIN 2.5 g/dL (3.4-4.8); CREATININE 0.49 mg/dL (0.55-1.30); TOTAL BILIRUBIN 0.6 mg/dL (0.0-1.0)
[2019-04-23 07:29] LABS: POTASSIUM 2.6 mmol/L (3.5-5.1)
[2019-04-23 08:14] VITALS: BP_SYST 145
[2019-04-23] MEDS: BISACODYL 5 MG TABLET.DR (DULCOLAX) PO SCH (08:21)
[2019-04-23] MEDS: POLYETHYLENE GLYCOL 3350, 17 GM/ POWD.PACK PO SCH ×3 (08:21→20:19)
[2019-04-23] MEDS: QUEtiapine FUMARATE 25 MG TABLET PO SCH (08:22)
[2019-04-23] MEDS: LORATADINE 10 MG TABLET PO SCH (08:22)
[2019-04-23] MEDS ORDERED: POTASSIUM CHLORIDE 20 MEQ TAB.PRT.SR PO ONE (10:45)
[2019-04-23] MEDS ORDERED: KCL 20 mEq in 100 mL (PREMIX) 200 ML IV ONE (10:45)
[2019-04-23] MEDS ORDERED: POTASSIUM CHLORIDE 40 MEQ, LIDOCAINE JECT 2% PF 100 MG 50 MG in NS 250 ML IV ONE (11:15)
[2019-04-23 11:45] VITALS: BP_SYST 161
[2019-04-23] MEDS: LORazepam 2 MG/ML VIAL IVP PRN ×2 (12:32→20:16)
[2019-04-23 16:43] VITALS: BP_SYST 154
[2019-04-23 20:00] VITALS: BP_SYST 151
[2019-04-23] MEDS: QUEtiapine FUMARATE 100 MG TABLET PO SCH (20:16)
[2019-04-23] MEDS: traZODone HCL 50 MG TABLET (DESYREL) PO SCH (20:16)
[2019-04-24 00:11] VITALS: BP_SYST 117
[2019-04-24] MEDS: AMPICILLIN SODIUM/SULBACTAM NA 3 GM in NS 100 ML IV SCH ×2 (00:13→06:23)
[2019-04-24] MEDS: NACL 0.9% 1,000 ML IV SCH ×2 (06:00→10:31)
[2019-04-24] MEDS: PANTOPRAZOLE SODIUM 40 MG TAB PO SCH (06:23)
[2019-04-24] MEDS: MORPHINE 4 MG/ML INJ. SYRINGE IVP PRN ×2 (06:31→11:53)
[2019-04-24] MEDS: DIPHENHYDRAMINE INJ 50 MG/ML VIAL IVP PRN (06:31)
[2019-04-24 06:33] LABS: ALBUMIN 2.3 g/dL (3.4-4.8); CALCIUM 7.9 mg/dL (8.4-11.0); CREATININE 0.41 mg/dL (0.55-1.30); POTASSIUM 3.3 mmol/L (3.5-5.1); TOTAL BILIRUBIN 0.6 mg/dL (0.0-1.0)
[2019-04-24 06:46] LABS: BASOPHILS % (AUTO) 0.5 % (0.0-2.0); EOSINOPHILS # (AUTO) 0.3 K/uL (0.0-0.4); EOSINOPHILS % (AUTO) 5.4 % (0.0-4.0); HEMATOCRIT 29.9 % (36-48); HEMOGLOBIN 9.6 g/dL (12.0-16.0); LYMPHOCYTES % (AUTO) 20.2 % (20.5-51.5); MEAN CORPUSCULAR HEMOGLOBIN 26 pg (27-31); MEAN CORPUSCULAR HGB CONC 32 % (32-36); MEAN CORPUSCULAR VOLUME 82 fL (79.0-98.0); MONOCYTES # (AUTO) 0.6 K/uL (0.0-1.0); MONOCYTES % (AUTO) 11.3 % (1.7-9.3); NEUTROPHILS # (AUTO) 3.2 K/uL (1.8-7.7); NEUTROPHILS % (AUTO) 62.6 % (40.0-70.0); PLATELET COUNT (AUTO) 143 K/uL (130-430); RED BLOOD CELL COUNT(AUTO) 3.65 MIL/uL (4.2-6.2)
[2019-04-24 08:00] VITALS: BP_SYST 135
[2019-04-24] MEDS: QUEtiapine FUMARATE 25 MG TABLET PO SCH (08:51)
[2019-04-24] MEDS: LORATADINE 10 MG TABLET PO SCH (08:51)
[2019-04-24] MEDS: BISACODYL 5 MG TABLET.DR (DULCOLAX) PO SCH (08:52)
[2019-04-24] MEDS: POLYETHYLENE GLYCOL 3350, 17 GM/ POWD.PACK PO SCH (08:52)
[2019-04-24] MEDS ORDERED: POTASSIUM CHLORIDE 20 MEQ TAB.PRT.SR PO ONE (10:45)
[2019-04-24 11:29] VITALS: BP_SYST 136
[2019-04-24 12:21] VITALS: BP_SYST 135
[2019-04-24] MEDS: LORazepam 1 MG TABLET PO PRN (12:52)
== END 2019-04-24 14:50 | DRG 328 ==
LOC: SED 09:52 → SMU 16:48
PROVIDERS: ADMIT Internal Medicine; ATTEND Internal Medicine
PROC: 8E0W4CZ Robotic Assisted Procedure of Trunk Region, Percutaneous Endoscopic Approach (ICD-10-PCS; 2019-04-21)
PROC: 0BUT4JZ Supplement Diaphragm with Synthetic Substitute, Percutaneous Endoscopic Approach (ICD-10-PCS; principal; 2019-04-21 09:00)
DX: K43.5 Parastomal hernia without obstruction or gangrene (principal); I10 Essential (primary) hypertension; F41.9 Anxiety disorder, unspecified; G35 Multiple sclerosis; K59.09 Other constipation; F32.9 Major depressive disorder, single episode, unspecified; G89.4 Chronic pain syndrome; Z88.2 Allergy status to sulfonamides; Z93.3 Colostomy status; Z79.1 Long term (current) use of non-steroidal anti-inflammatories (NSAID); Z79.899 Other long term (current) drug therapy; Z90.49 Acquired absence of other specified parts of digestive tract
CPT/HCPCS: 36415; 71045; 72131; 74018; 80053; 81003; 83690-TC; 85025; 85610-TC; 86886; 86900; 86901; 87081; 93005; 94760; 96374; 96375; 96376; 99285; A5061; C1727; C1781; J0295; J1200; J1885; J2001; J2060; J2175; J2250; J2270; J2405; J2704; J2710; J3010; J3480; J3490; J7030; J7050; J7120

== ENCOUNTER 2019-05-08 10:57 | Inpatient (IN) | payer OTHER ==
[~2019-05-08] VITALS: Ht 152.4 cm; Wt 43.5 kg
[2019-05-08 10:57] VITALS: BP_SYST 118
[~2019-05-08 10:57] MED LIST changes: -ASCO1TAB39 PO; -CAT.1 PO; -CEL20 PO; -ESCI10TA PO; -FAMO20TA8 PO; -HYDR-3606 PO; -IBUP-1969 PO; +LORA10TA7 PO; -LUBI24CA5 PO; -NOR10 PO; -ONDA4TAB5 PO; +PANT20TA2 PO; -POLY17PO4 PO
--- NOTE | 2019-05-08 10:57 | NUR ---
BROUGHT IN BY [facility], PLACED IN BED #2 AND TRIAGED. REPORT GIVEN TO SON
--- NOTE | 2019-05-08 11:10 | NUR ---
Pt c/o chronic abd pain and anxiety.Pt h/o colostomy.
[2019-05-08] MEDS ORDERED: NACL 0.9% 1,000 ML IV ONE (11:13)
[2019-05-08] MEDS ORDERED: MORPHINE 4 MG/ML INJ. SYRINGE IVP ONE ×2 (11:15→14:00)
--- NOTE | 2019-05-08 11:15 | NUR ---
ER at bedside examining patient.
[2019-05-08 11:26] LABS: BILIRUBIN,URINE NEGATIVE (NEGATIVE); BLOOD, URINE NEGATIVE (NEGATIVE); CLARITY/URINE SL HAZY (CLEAR); COLOR,URINE YELLOW (YELLOW); GLUCOSE,URINE NEGATIVE (NEGATIVE); KETONES,URINE NEGATIVE (NEGATIVE); LEUKOCYTE ESTERASE ,URINE NEGATIVE (NEGATIVE); NITRITE, URINE NEGATIVE (NEGATIVE); PROTEIN URINE NEGATIVE (NEGATIVE); UROBILINOGEN,URINE 0.2 (0.2-1.0)
[2019-05-08 11:37] LABS: BASOPHILS % (AUTO) 0.6 % (0.0-2.0); EOSINOPHILS # (AUTO) 0.1 K/uL (0.0-0.4); EOSINOPHILS % (AUTO) 1.1 % (0.0-4.0); HEMATOCRIT 38.2 % (36-48); HEMOGLOBIN 12.2 g/dL (12.0-16.0); LYMPHOCYTES # (AUTO) 1.8 K/uL (1.0-5.5); LYMPHOCYTES % (AUTO) 23.2 % (20.5-51.5); MEAN CORPUSCULAR HEMOGLOBIN 26 pg (27-31); MEAN CORPUSCULAR HGB CONC 32 % (32-36); MEAN CORPUSCULAR VOLUME 82 fL (79.0-98.0); MONOCYTES # (AUTO) 0.7 K/uL (0.0-1.0); MONOCYTES % (AUTO) 9.1 % (1.7-9.3); PLATELET COUNT (AUTO) 423 K/uL (130-430); RED BLOOD CELL COUNT(AUTO) 4.66 MIL/uL (4.2-6.2); RED CELL DISTRIBUTION WIDTH 17.4 % (9.0-15.0); WHITE BLOOD COUNT (AUTO) 7.6 K/uL (4.8-10.8)
--- NOTE | 2019-05-08 11:43 | NUR ---
Patient transported to radiology via gurney, accompanied by rad staff.
[2019-05-08 11:44] LABS: CREATININE 0.82 mg/dL (0.55-1.30); POTASSIUM 4.1 mmol/L (3.5-5.1)
[2019-05-08 11:50] LABS: ALBUMIN 3.4 g/dL (3.4-4.8); TOTAL BILIRUBIN 0.4 mg/dL (0.0-1.0)
--- NOTE | 2019-05-08 12:00 | NUR ---
Returned from radiology, back to [facility].
[2019-05-08] MEDS ORDERED: DIPHENHYDRAMINE INJ 50 MG/ML VIAL IVP ONE (12:15)
[2019-05-08] MEDS ORDERED: DIPHENHYDRAMINE INJ 50 MG/ML VIAL ONE (12:22)
[2019-05-08] MEDS ORDERED: KETOROLAC TROMETHAMINE 30 MG VIAL IVP ONE (13:15)
--- NOTE | 2019-05-08 13:15 | NUR ---
Pt medicated for pain.,
[2019-05-08] MEDS ORDERED: KETOROLAC TROMETHAMINE 60 MG/2 ML VIAL IM ONE (13:29)
--- NOTE | 2019-05-08 14:00 | NUR ---
PT MEDICATED FOR PAIN.
--- NOTE | 2019-05-08 14:40 | NUR ---
Patient will be admitted to care of . Admitted to Med/Surg unit. Will go to room 114B. Belongings list completed. Summary report printed. Report will be given at bedside.
--- NOTE | 2019-05-08 15:16 | NUR ---
ADMISSION NOTE Received patient from ER via pillo, received report from ROLLER TURNER. Patient admitted with diagnosis of ABDOMINAL PAIN. Patient oriented to hospital routine, call light, toileting and safety-patient verbalized understanding.
--- NOTE | 2019-05-08 15:20 | NUR ---
RN OPENING NOTE BEGAN CARE OF PT. ADMIT ASSESSMENT PERFORMED AT BEDSIDE
[2019-05-08 15:31] VITALS: BP_SYST 129
--- NOTE | 2019-05-08 15:49 | NUR ---
CONSULTATION PAGED REASON FOR CONSULTATION:COLOSTOMY WAS CONSULT CALLED?Y PERSON WHO WAS NOTIFIED:BHAVESH CONSULTING PHYSICIAN:DOROTEO BELLAMY MOTORCYCLE SALES ASSOCIATE SPECIALTY:SURGEON MOTORCYCLE SALES ASSOCIATE PHONE NUMBER:[phone] ORDERING PHYSICIAN:JOY CASTORENA
[2019-05-08 16:00] VITALS: BP_SYST 129
--- NOTE | 2019-05-08 16:02 | NUR ---
COMPLAINT OF PAIN AND ANXIETY DR. GÓMEZ PAGED FOR ORDERS.
--- NOTE | 2019-05-08 16:44 | NUR ---
CONSULTATION PAGED REASON FOR CONSULTATION:ANXIETY/DEPRESSION WAS CONSULT CALLED?Y PERSON WHO WAS NOTIFIED:JEAN-CLAUDE CONSULTING PHYSICIAN:BENJI MCKEON CARDIOGRAPHER SPECIALTY:PSYCH CARDIOGRAPHER PHONE NUMBER:[phone] ORDERING PHYSICIAN:JOY CASTORENA FACESHEET FAXED
[2019-05-08] MEDS ORDERED: MORPHINE 2 MG/ML INJ. SYRINGE IVP ONE (16:45)
[2019-05-08] MEDS ORDERED: ONDANSETRON HCL 4 MG/2 ML VIAL IVP PRN (16:45)
[2019-05-08] MEDS ORDERED: LORazepam 2 MG/ML VIAL IVP ONE (16:45)
[2019-05-08] MEDS ORDERED: MORPHINE 2 MG/ML INJ. SYRINGE IVP PRN (18:00)
[2019-05-08] MEDS ORDERED: METOCLOPRAMIDE HCL 10 MG/2 ML VIAL IVP PRN (18:00)
--- NOTE | 2019-05-08 18:49 | NUR ---
CLOSING NOTE PT IS SITTING UP IN BED AND STATED HER PAIN IS 5/10 AND MANAGEABLE, NO COMPLAINT OF N/V.
--- NOTE | 2019-05-08 19:30 | NUR ---
Bedside report was obtained from day shift nurse. Pt is fully awake, alert and oriented x3. Speech is clear and pt is able to make her needs known. No c/o pain or discomfort at this time. Saline lock in LFA is without any signs of infiltration. Fall and safety precautions are in place. Call light is with pt and bed alarm is on. Addendum: 05/08/19 at 2241 by Jessy Domingo RN RLQ colostomy bag noted with no stool in the bag. Small amount of brownish stool noted around the stoma, which is pinkish.
[2019-05-08 20:00] VITALS: BP_SYST 141
--- NOTE | 2019-05-08 21:57 | NUR ---
avni Davison's exchange. Spoke to
[2019-05-08] MEDS ORDERED: ACETAMINOPHEN 325 MG TABLET PO PRN (22:15)
--- NOTE | 2019-05-08 22:15 | NUR ---
New orders obtained from Dr. Davison who instructed RN to enter the orders into the computer because he didn't have a lap top.
--- NOTE | 2019-05-09 | NUR ---
Pt is sleeping comfortably in bed. Fall and safety precautions are in place.
[2019-05-09 00:51] VITALS: BP_SYST 136
--- NOTE | 2019-05-09 02:00 | NUR ---
Pt is sleeping without any distress noted. Fall and safety precautions are in place.
[2019-05-09] MEDS: MORPHINE 4 MG/ML INJ. SYRINGE IVP PRN ×4 (03:43→17:23)
--- NOTE | 2019-05-09 03:43 | NUR ---
Morphine 4mg was given IV for c/o 05/17 abdominal pain. Pt declined bed alarm. Pt was instructed to call for assistance before getting out of bed if she feels dizzy or drowsy and pt verbalized understanding. Call light is with pt and bed is in the lowest and locked positions.
--- NOTE | 2019-05-09 05:44 | NUR ---
Pt continues to sleep without any distress noted. Fall and safety precautions are in place.
--- NOTE | 2019-05-09 06:57 | NUR ---
Pt is sleeping comfortably in bed at this time and no distress noted. Saline lock in LFA is without any signs of infiltration. Fall and safety precautions are in place. Will endorse to day shift nurse.
--- NOTE | 2019-05-09 07:13 | NUR ---
Opening Note received bedside SBAR report from micro photographer RN, patient resting in bed, no acute distress noted, educated patient on use of call light and asked to call for assistance, patient verbalized understanding, call light in reach, educated patient on use of bed alarm for patient safety, patient refusing bed alarm, bed in low and locked position.
[2019-05-09] MEDS: ONDANSETRON HCL 4 MG/2 ML VIAL IVP PRN (07:17)
[2019-05-09] MEDS: PANTOPRAZOLE SODIUM 40 MG TAB PO SCH (07:17)
[2019-05-09] MEDS: QUEtiapine FUMARATE 25 MG TABLET PO SCH (07:51)
[2019-05-09] MEDS: LORazepam 1 MG TABLET PO PRN ×3 (07:51→23:31)
[2019-05-09] MEDS: LORATADINE 10 MG TABLET PO SCH (07:51)
[2019-05-09] MEDS: BISACODYL 5 MG TABLET.DR (DULCOLAX) PO SCH (07:51)
[2019-05-09 08:00] VITALS: BP_SYST 143
[2019-05-09] MEDS ORDERED: NON-FORMULARY MEDICATION (Pantoprazole (Protonix) 40 MG) PO SCH (09:00)
[2019-05-09] MEDS ORDERED: traZODone HCL 50 MG TABLET (DESYREL) PO SCH (09:00)
--- NOTE | 2019-05-09 09:57 | NUR ---
RN Rounds patient resting in bed, respirations even and unlabored on room air, no acute distress noted, patient reports pain and anxiety are controlled at this time.
[2019-05-09 11:36] VITALS: BP_SYST 135
--- NOTE | 2019-05-09 12:10 | NUR ---
RN Rounds patient resting in bed, no acute distress noted, patient requesting additional blanket, provided patient with additional blanket, no additional needs at this time.
[2019-05-09] MEDS ORDERED: GABAPENTIN 100 MG CAPSULE PO ONE (12:45)
[2019-05-09] MEDS ORDERED: GABAPENTIN 100 MG CAPSULE PO SCH (12:45)
--- NOTE | 2019-05-09 14:09 | NUR ---
RN Rounds patient resting in bed, no acute distress noted, patient reports pain is controlled at this time, patient reports that she removed her colostomy bag and placed a new colostomy bag, no additional needs at this time.
--- NOTE | 2019-05-09 15:40 | NUR ---
Physician Rounds Dr. Castellon at bedside examining patient.
--- NOTE | 2019-05-09 15:58 | NUR ---
Physician Rounds Dr. Davison at bedside examining patient.
--- NOTE | 2019-05-09 16:17 | NUR ---
Spoke with Dr. Davison per Dr. Davison hold discharge pending psych evaluation.
--- NOTE | 2019-05-09 16:46 | NUR ---
Psych follow up: called office of to remind them of consult, they will page.
[2019-05-09 16:50] VITALS: BP_SYST 161
--- NOTE | 2019-05-09 17:30 | NUR ---
Pain Management/Medication patient complaint of pain, patient requesting PRN pain medications, educated patient on use and side effects of PRN morphine, patient verbalized understanding, tolerated medication administration well, no acute distress noted, patient resting in bed.
--- NOTE | 2019-05-09 19:19 | NUR ---
Closing Note bedside SBAR report given to receiving RN, patient resting in bed, no acute distress noted, educated patient on use of call light and asked to call for assistance, patient verbalized understanding, call light in reach, educated patient on use of bed alarm for patient safety, patient refusing bed alarm, bed in low and locked position, care endorsed to assembler 1st shift RN.
--- NOTE | 2019-05-09 19:20 | NUR ---
Bedside report was obtained from day shift nurse. Pt is fully awake, alert and oriented x4. Speech is clear and pt is able to make her needs known. No c/o pain or discomfort at this time. Saline lock in LFA is without any signs of infiltration. Fall and safety precautions are in place. Call light is with pt and bed is in the lowest and locked positions. Pt was instructed to call for assistance as needed and pt verbalized understanding.
[2019-05-09 20:00] VITALS: BP_SYST 144
[2019-05-09] MEDS: GABAPENTIN 100 MG CAPSULE PO SCH (20:18)
[2019-05-09] MEDS: traZODone HCL 50 MG TABLET (DESYREL) PO SCH (20:18)
[2019-05-09] MEDS: QUEtiapine FUMARATE 100 MG TABLET PO SCH (20:18)
--- NOTE | 2019-05-09 20:45 | NUR ---
Pt was assisted with colostomy bag change per pt's request. Slight stoma protrusion noted, but stoma remains pinkish. Pt denies pain or discomfort at this time. Fall and safety precautions are in place. Call light is with pt and bed is in the lowest and locked positions.
--- NOTE | 2019-05-09 23:31 | NUR ---
Ativan 1mg was given po per pt's request for c/o anxiety. Pt declined bed alarm. Call light is with pt and bed is in the lowest and locked positions. Pt was instructed to call for assistance before getting out of bed if she feels dizzy or drowsy and pt verbalized understanding.
--- NOTE | 2019-05-10 01:00 | NUR ---
Pt is sleeping without any distress noted. Fall and safety precautions are in place.
[2019-05-10 02:08] VITALS: BP_SYST 148
--- NOTE | 2019-05-10 03:00 | NUR ---
Pt is sleeping comfortably in bed without any distress noted. Saline lock in LFA is without any signs of infiltration. Fall and safety precautions are in place.
--- NOTE | 2019-05-10 05:00 | NUR ---
Pt is sleeping comfortably in bed. No acute distress noted. Fall and safety precautions are in place.
[2019-05-10] MEDS: MORPHINE 4 MG/ML INJ. SYRINGE IVP PRN (06:36)
--- NOTE | 2019-05-10 06:36 | NUR ---
Morphine 4mg was given IV for c/o 7/10 abdominal and lower back pain. Zofran 4mg was given IV for c/o nausea. Pt declined bed alarm. Pt was instructed to call for assistance before getting out of bed if she feels dizzy or drowsy and pt verbalized understanding. Call light is with pt and bed is in the lowest and locked positions.
[2019-05-10] MEDS: ONDANSETRON HCL 4 MG/2 ML VIAL IVP PRN (06:37)
--- NOTE | 2019-05-10 07:21 | NUR ---
Opening Note received bedside SBAR report from warehouse worker 2nd shift RN, patient resting in bed, no acute distress noted, patient reports pain is controlled at this time, educated patient on use of call light and asked to call for assistance, patient verbalized understanding, call light in reach, educated patient on use of bed alarm for patient safety, patient refusing bed alarm, bed in low and locked position.
[2019-05-10 08:00] VITALS: BP_SYST 133
--- NOTE | 2019-05-10 08:15 | NUR ---
Ambulated to bathroom assisted patient to ambulate to bathroom, steady gait, patient voided x1, clear, yellow, patient ambulated back to bed, patient resting in bed.
[2019-05-10] MEDS: GABAPENTIN 100 MG CAPSULE PO SCH ×3 (08:20→20:44)
[2019-05-10] MEDS: PANTOPRAZOLE SODIUM 40 MG TAB PO SCH (08:20)
[2019-05-10] MEDS: LORATADINE 10 MG TABLET PO SCH (08:20)
[2019-05-10] MEDS: LORazepam 1 MG TABLET PO PRN ×2 (08:20→16:41)
[2019-05-10] MEDS: QUEtiapine FUMARATE 25 MG TABLET PO SCH ×2 (08:20→17:12)
[2019-05-10] MEDS: BISACODYL 5 MG TABLET.DR (DULCOLAX) PO SCH (08:20)
--- NOTE | 2019-05-10 09:45 | NUR ---
Pain Management/Medication patient complaint of pain, patient requesting PRN tylenol, educated patient on use and side effects of PRN tylenol, patient verbalized understanding, tolerated medication administration well, no acute distress noted, patient resting in bed.
[2019-05-10] MEDS: HYDROcodone/ACETAMIN 10-325 MG TAB PO PRN ×2 (11:44→17:46)
--- NOTE | 2019-05-10 11:45 | NUR ---
Pain Management/Medication patient complaint of pain, patient requesting PRN pain medication, educated patient on use and side effects of PRN norco, patient verbalized understanding, tolerated medication administration well, no acute distress noted.
[2019-05-10 12:00] VITALS: BP_SYST 144
--- NOTE | 2019-05-10 13:55 | NUR ---
RN Rounds patient resting in bed, respirations even and unlabored on room air, no acute distress noted.
--- NOTE | 2019-05-10 14:30 | NUR ---
Nutrition Assessment A - RD reviewed pertinent nutrition-related info via EMR (physician notes/nursing notes/labs/meds/nursing care trends/care activity). Pt seen resting in bed, visually thin for geriatric age/ht. Pt verified anthropometrics. Pt reported wt loss within past 1-2 months (UBW: 110 lb). Wt loss of 13 lb. 12% wt change within 1-2 months. Pt is at risk for malnutrition. Pt reported that she has not had any stool output from her colostomy today, and that she ate well last night at dinner. Lunch tray seen less than 50% eaten. Average PO intakes: 50% x4 meals per EMR. Current Diet Order/Nutrition Support: regular x1 day Ht: 60"/5' Wt: 97 lb/44 kg IBW: 100 lb/45 kg %IBW: 98% BMI: 18.7 kg/m2 (underweight, at risk for malnutrition) ESTIMATED NUTRITIONAL NEEDS CALORIES/DAY: 3682-2623 kcal/day (30-35 kcal/kg CBW for wt gain promotion) PROTEIN/DAY: 52-66 gm/day (1.2-1.5 gm/kg CBW for wt gain promotion) FLUID/DAY: 1-1.3 L/day (25-30 ml/kg CBW for geriatric maintenance) D - Malnutrition related to unintentional wt loss as evidenced by wt loss of 13 lb/12% wt change within 1-2 months. I - Recommend regular diet w/ Ensure Enlive TID (ONS provides 1050 kcal/day, 60 gm protein/day) M - Monitor appetite and PO intakes w/ goal of pt meeting at least 75% of estimated nutritional needs, labs trending WNL, normal GI function, and skin integrity/wt maintenance E - Moderate Risk: RD to F/U within 3-5 days
--- NOTE | 2019-05-10 14:36 | NUR ---
Dietitian Recommendation * Recommend regular diet w/ Ensure Enlive TID (ONS provides 1050 kcal/day, 60 gm protein/day) LP, RD Please refer to Nutrition Assessment for details.
--- NOTE | 2019-05-10 16:09 | NUR ---
Ambulated to bathroom patient ambulated to bathroom, steady gait noted, voided x1, patient ambulated back to bed, patient resting in bed, no acute distress noted, patient denies any nausea/vomiting.
--- NOTE | 2019-05-10 16:23 | NUR ---
Emptied Colostomy bag emptied colostomy bag, 100ml, brown, loose, patient tolerated well, patient resting in bed.
[2019-05-10 16:36] VITALS: BP_SYST 139
--- NOTE | 2019-05-10 17:47 | NUR ---
Pain Management/Medication patient complaint of pain, patient requesting PRN norco, educated patient on use and side effects of PRN norco, patient verbalized understanding, tolerated medication administration well, no acute distress noted, patient resting in bed.
--- NOTE | 2019-05-10 19:10 | NUR ---
Closing Note bedside SBAR report given to receiving RN, patient resting in bed, respirations even and unlabored on room air, no acute distress noted, educated patient on use of call light and asked to call for assistance, patient verbalized understanding, call light in reach, educated patient on use of bed alarm for patient safety, patient verbalized understanding, patient refusing bed alarm, bed in low and locked position, care endorsed to second shift supervisor RN.
--- NOTE | 2019-05-10 19:15 | NUR ---
OPENING NOTES RECEIVED PATIENT IN BED ASLEEP. BREATHING UNLABORED ON ROOM AIR. BED IN LOWEST LOCKED POSITION. BED ALARM ON. CALL LIGHT WITH IN REACH.
[2019-05-10 20:42] VITALS: BP_SYST 125
[2019-05-10] MEDS: traZODone HCL 50 MG TABLET (DESYREL) PO SCH (20:44)
[2019-05-10] MEDS: QUEtiapine FUMARATE 100 MG TABLET PO SCH (20:44)
--- NOTE | 2019-05-10 20:46 | NUR ---
MED PASS PATIENT DUE MEDICATIONS GIVEN AND TOLERATED.
--- NOTE | 2019-05-10 23:00 | NUR ---
ROUNDS PATIENT RESTING IN BED. NO DISTRESS NOTED. CALL LIGHT WITH IN REACH.
[2019-05-11 00:26] VITALS: BP_SYST 122
--- NOTE | 2019-05-11 02:01 | NUR ---
ROUNDS PATIENT RESTING IN BED. BREATHING UNLABORED ON ROOM AIR. VITAL SIGNS STABLE. CALL LIGHT WITHIN REACH.
--- NOTE | 2019-05-11 04:10 | NUR ---
ROUNDS PATIENT RESTING IN BED. NO DISTRESS NOTED. CALL LIGHT WITH IN REACH. BED ALARM ON.
--- NOTE | 2019-05-11 04:35 | NUR ---
OOB PATIENT ASSISTED OUT OF BED TO REST ROOM AND BACK TO BED. DENIES ANY PAIN. BED ALARM ON.
[2019-05-11] MEDS: HYDROcodone/ACETAMIN 10-325 MG TAB PO PRN ×3 (06:27→18:19)
[2019-05-11] MEDS: ONDANSETRON HCL 4 MG/2 ML VIAL IVP PRN (06:28)
[2019-05-11] MEDS: PANTOPRAZOLE SODIUM 40 MG TAB PO SCH (06:33)
--- NOTE | 2019-05-11 06:40 | NUR ---
CLOSING NOTES PATIENT RESTING IN BED. BREATHING UNLABORED ON ROOM AIR. COLOSTOMY BAG CHANGED. WAS MEDICATED WITH NORCO FOR C/O 9/10 ABDOMINAL PAIN. PATIENT NEEDS ATTENDED. BED IN LOWEST LOCKED POSITION WITH ALARM ON. CALL LIGHT WITH IN REACH.
[2019-05-11 08:00] VITALS: BP_SYST 139
--- NOTE | 2019-05-11 08:00 | NUR ---
RN OPENING NOTE PATIENT IS RESTING IN BED , ALERT ORIENTED X4, PATIENT WAS ASSESSED, VITAL SIGNS ARE STABLE. PATIENT DENIES PAIN OR DISCOMFORT. BED AT LOW POSITION AND CALL LIGHT WITHIN REACH WILL CONTINUE TO MONITOR.
[2019-05-11] MEDS: BISACODYL 5 MG TABLET.DR (DULCOLAX) PO SCH (08:30)
[2019-05-11] MEDS: LORazepam 1 MG TABLET PO PRN ×2 (08:31→16:13)
[2019-05-11] MEDS: QUEtiapine FUMARATE 25 MG TABLET PO SCH ×2 (08:31→17:40)
[2019-05-11] MEDS: LORATADINE 10 MG TABLET PO SCH (08:31)
[2019-05-11] MEDS: GABAPENTIN 100 MG CAPSULE PO SCH ×2 (08:31→15:38)
--- NOTE | 2019-05-11 10:00 | NUR ---
RN NOTE PATIENT GOT HER MEDICATION AND FELT A ANXIOUS. PATIENT WAS GIVEN HER PRN ATIVAN . P.O WILL CONTINUE TO MONITOR.
[2019-05-11 11:33] VITALS: BP_SYST 94
--- NOTE | 2019-05-11 12:00 | NUR ---
RN NOTE PATIENT RESTING IN BED. PATIENT WAS SERVED HER LUNCH, EDUCATED ABOUT FALL PREVENTION. VERBALIZED UNDERSTANDING.
--- NOTE | 2019-05-11 14:00 | NUR ---
RN NOTE PATIENT WAS GIVEN HER PRN PAIN MEDICATIONS. FELT BETTER. PATIENT WILL BE TRANSFERED TO [facility]. WILL CALL FOR REPORT AND WILL ARRANGE FOR THE AMBULANCE.
--- NOTE | 2019-05-11 14:12 | NUR ---
Transport: Spoke with Marielle at [facility]. [phone]. BLS pickup scheduled for 1800. Authorization number given: [id number] Patient going to [facility] room 13.
[2019-05-11 15:45] VITALS: BP_SYST 97
--- NOTE | 2019-05-11 16:00 | NUR ---
RN NOTE PATIENT IS RESTING IN BED. SLEEPING. NO ACUTE ISSUE
[2019-05-11 17:04] VITALS: BP_SYST 97
--- NOTE | 2019-05-11 18:01 | NUR ---
RN CLOSING NOTE PATIENT WILL BE TRANSFERED BY THE [facility]BUL[facility] TO [facility], HER SON TITI ZELAYA WAS INFORMED OF THE TRANSFER PAPER OF THE TRANSFER IS READY AND AWAITING THE AMBULANCE AND HEREBY i SIGN OFF PATIENT'S CARE DUE TO PATIENT'S TRANSFER.
--- NOTE | 2019-05-11 18:20 | NUR ---
RN NOTE PATIENT LEFT WITH THE AMBULANCE TO THE SNF.
== END 2019-05-11 18:33 | DRG 392 ==
LOC: SED 10:57 → OBSVTOIN 14:47 → INTOOBSV 14:47 → SMU 14:47
PROVIDERS: ADMIT Internal Medicine Hospice and Palliative Medicine; ATTEND Internal Medicine Hospice and Palliative Medicine
DX: R10.31 Right lower quadrant pain (principal); K59.00 Constipation, unspecified; F32.9 Major depressive disorder, single episode, unspecified; F41.1 Generalized anxiety disorder; J44.9 Chronic obstructive pulmonary disease, unspecified; I10 Essential (primary) hypertension; Z60.2 Problems related to living alone; G89.29 Other chronic pain; Z93.3 Colostomy status; Z88.2 Allergy status to sulfonamides; Z79.899 Other long term (current) drug therapy
CPT/HCPCS: 36415; 80053; 81003; 83690-TC; 85025; 87081; 96361; 96374; 96375; 96376; 99285; A5061; J1200; J1885; J2060; J2270; J2405; J7030

== ENCOUNTER 2019-12-08 09:21 | Emergency (ER) | payer OTHER ==
[~2019-12-08] VITALS: Ht 152.4 cm; Wt 45.4 kg
[~2019-12-08 09:21] MED LIST changes: +MORPHINE 4 MG/ML INJ. SYRINGE IVP ONE
--- NOTE | 2019-12-08 09:22 | NUR ---
Patient to ER bed 08 to gown for evaluation. Side rails up.
[2019-12-08 09:24] VITALS: BP_SYST 151
[2019-12-08] MEDS ORDERED: NACL 0.9% 1,000 ML IV ONE (09:38)
--- NOTE | 2019-12-08 09:41 | NUR ---
Patient bib [facility] ambulance with cc of abdominal pain for 3 days, nausea and vomited this morning x1. watery bm. hx of abdominal surgery, right upper quadrant colostomy, chronic back pain. vital sign stable, afebrile. no other concerned noted.
[2019-12-08] MEDS ORDERED: ONDANSETRON HCL 4 MG/2 ML VIAL IVP ONE (09:45)
--- NOTE | 2019-12-08 09:55 | NUR ---
Blood for labwork drawn from left hand by bladder trimmer. Patient tolerated well.
[2019-12-08] MEDS ORDERED: MORPHINE 4 MG/ML INJ. SYRINGE ONE (10:04)
--- NOTE | 2019-12-08 10:08 | NUR ---
Patient transported to radiology via gurney, accompanied by lacie.
[2019-12-08 10:09] LABS: BASOPHILS % (AUTO) 0.5 % (0.0-2.0); EOSINOPHILS # (AUTO) 0.1 K/uL (0.0-0.4); EOSINOPHILS % (AUTO) 2.4 % (0.0-4.0); HEMATOCRIT 36.1 % (36-48); HEMOGLOBIN 11.7 g/dL (12.0-16.0); LYMPHOCYTES # (AUTO) 1.1 K/uL (1.0-5.5); LYMPHOCYTES % (AUTO) 22.3 % (20.5-51.5); MEAN CORPUSCULAR HEMOGLOBIN 27 pg (27-31); MEAN CORPUSCULAR HGB CONC 33 % (32-36); MEAN CORPUSCULAR VOLUME 83 fL (79.0-98.0); MONOCYTES # (AUTO) 0.4 K/uL (0.0-1.0); MONOCYTES % (AUTO) 7.9 % (1.7-9.3); NEUTROPHILS # (AUTO) 3.4 K/uL (1.8-7.7); NEUTROPHILS % (AUTO) 66.9 % (40.0-70.0); PLATELET COUNT (AUTO) 238 K/uL (130-430); RED BLOOD CELL COUNT(AUTO) 4.36 MIL/uL (4.2-6.2); RED CELL DISTRIBUTION WIDTH 16.3 % (9.0-15.0); WHITE BLOOD COUNT (AUTO) 5.1 K/uL (4.8-10.8)
[2019-12-08 10:20] LABS: CALCIUM 8.3 mg/dL (8.4-11.0); CREATININE 0.73 mg/dL (0.55-1.30); POTASSIUM 4.4 mmol/L (3.5-5.1)
[2019-12-08 10:27] LABS: ALBUMIN 3.5 g/dL (3.4-4.8); TOTAL BILIRUBIN 0.4 mg/dL (0.0-1.0)
[2019-12-08] MEDS ORDERED: KETOROLAC TROMETHAMINE 30 MG VIAL IVP ONE (10:30)
--- NOTE | 2019-12-08 10:30 | NUR ---
patient informed need urine sample. informed about the option. stated just wait for now.
--- NOTE | 2019-12-08 10:36 | NUR ---
patient caomplained pain is not relieve. informed MD, ordered received. medicated with toradol 30 mg ivp. vital sign stable.
[2019-12-08] MEDS ORDERED: MORPHINE 4 MG/ML INJ. SYRINGE IVP ONE (11:15)
[2019-12-08 11:35] LABS: BILIRUBIN,URINE NEGATIVE (NEGATIVE); BLOOD, URINE NEGATIVE (NEGATIVE); CLARITY/URINE CLEAR (CLEAR); COLOR,URINE YELLOW (YELLOW); GLUCOSE,URINE NEGATIVE (NEGATIVE); KETONES,URINE NEGATIVE (NEGATIVE); LEUKOCYTE ESTERASE ,URINE NEGATIVE (NEGATIVE); NITRITE, URINE NEGATIVE (NEGATIVE); PROTEIN URINE NEGATIVE (NEGATIVE); UROBILINOGEN,URINE 0.2 (0.2-1.0)
--- NOTE | 2019-12-08 11:45 | NUR ---
MD perez spoke with patient and discuss about the result of the test. decided to discahrge home. per patient unable to reach someone to pick her up. charge nurse aware and warehouse associate driver will arrange transport. pt aware about the plan.
[2019-12-08 12:35] VITALS: BP_SYST 135
--- NOTE | 2019-12-08 12:37 | NUR ---
Patient given written and verbal discharge instructions and verbalizes understanding. ER MD discussed with patient the results and treatment provided. Patient in stable condition. ID arm band removed. IV catheter removed intact and dressing applied, no active bleeding. Patient educated on pain management and to follow up with PMD. Pain Scale 3. Opportunity for questions provided and answered. Medication side effect fact sheet provided.Patient was car pick up driver by son ( ciro). wheelout via wheelchair.
== END 2019-12-08 09:22 | disposition home or self-care (01) ==
LOC: SED 09:21
DX: F11.90 Opioid use, unspecified, uncomplicated (principal); R11.2 Nausea with vomiting, unspecified; J44.9 Chronic obstructive pulmonary disease, unspecified; I10 Essential (primary) hypertension; F41.9 Anxiety disorder, unspecified; Z90.49 Acquired absence of other specified parts of digestive tract; Z79.899 Other long term (current) drug therapy; Z88.2 Allergy status to sulfonamides
CPT/HCPCS: 36415; 74176; 80053; 81003; 83690; 85025; 96361; 96374; 96375; 96376; 99284; J1885; J2270; J2405; J7030

== ENCOUNTER 2020-01-03 06:11 | Emergency (ER) | payer OTHER ==
[~2020-01-03] VITALS: Ht 152.4 cm; Wt 48.1 kg
[~2020-01-03 06:11] MED LIST changes: -MORPHINE 4 MG/ML INJ. SYRINGE IVP ONE
--- NOTE | 2020-01-03 06:15 | NUR ---
Patient to ER bed 4 to gown for evaluation. Side rails up. Report given to AVELINA JONES.
[2020-01-03 06:16] VITALS: BP_SYST 114
--- NOTE | 2020-01-03 06:18 | NUR ---
Patient AOx4, brought to ED via ambulance BLS for complaint of mid lower abdominal pain 8/10, nausea, vomiting, and diarrhea x2 days. Patient noted with a colostomy to right abdomen. Patient states she has been unable to eat the past couple of days. No other symptoms or complaints.
--- NOTE | 2020-01-03 06:20 | NUR ---
ED MD Beltran at bedside.
[2020-01-03 06:53] LABS: BASOPHILS % (AUTO) 0.5 % (0.0-2.0); EOSINOPHILS # (AUTO) 0.2 K/uL (0.0-0.4); EOSINOPHILS % (AUTO) 2.8 % (0.0-4.0); HEMOGLOBIN 12.5 g/dL (12.0-16.0); LYMPHOCYTES # (AUTO) 1.4 K/uL (1.0-5.5); LYMPHOCYTES % (AUTO) 23.2 % (20.5-51.5); MEAN CORPUSCULAR HEMOGLOBIN 27 pg (27-31); MEAN CORPUSCULAR HGB CONC 32 % (32-36); MEAN CORPUSCULAR VOLUME 84 fL (79.0-98.0); MONOCYTES # (AUTO) 0.6 K/uL (0.0-1.0); MONOCYTES % (AUTO) 9.3 % (1.7-9.3); NEUTROPHILS # (AUTO) 3.8 K/uL (1.8-7.7); NEUTROPHILS % (AUTO) 64.2 % (40.0-70.0); PLATELET COUNT (AUTO) 236 K/uL (130-430); RED BLOOD CELL COUNT(AUTO) 4.62 MIL/uL (4.2-6.2); RED CELL DISTRIBUTION WIDTH 16.3 % (9.0-15.0)
[2020-01-03] MEDS ORDERED: MORPHINE 4 MG/ML INJ. SYRINGE IVP ONE (07:00)
[2020-01-03 07:25] LABS: ALBUMIN 3.9 g/dL (3.4-4.8); CREATININE 0.78 mg/dL (0.55-1.30); POTASSIUM 3.9 mmol/L (3.5-5.1); TOTAL BILIRUBIN 0.5 mg/dL (0.0-1.0)
--- NOTE | 2020-01-03 07:25 | NUR ---
Report given to KAREN Clemons. All care endorsed.
--- NOTE | 2020-01-03 08:45 | NUR ---
PT COLOSTOMY BAG CHANGED AT BEDSIDE
[2020-01-03 09:05] LABS: BILIRUBIN,URINE NEGATIVE (NEGATIVE); BLOOD, URINE NEGATIVE (NEGATIVE); CLARITY/URINE CLEAR (CLEAR); COLOR,URINE YELLOW (YELLOW); GLUCOSE,URINE NEGATIVE (NEGATIVE); KETONES,URINE NEGATIVE (NEGATIVE); LEUKOCYTE ESTERASE ,URINE NEGATIVE (NEGATIVE); NITRITE, URINE NEGATIVE (NEGATIVE); PROTEIN URINE NEGATIVE (NEGATIVE); UROBILINOGEN,URINE 0.2 (0.2-1.0)
[2020-01-03] MEDS ORDERED: DIPHENHYDRAMINE INJ 50 MG/ML VIAL IVP ONE (09:30)
--- NOTE | 2020-01-03 09:30 | NUR ---
PT IN [facility]. PT RESTING AFTER MEDICATION
[2020-01-03] MEDS ORDERED: MORPHINE 2 MG/ML INJ. SYRINGE IVP PRN (10:15)
--- NOTE | 2020-01-03 10:30 | NUR ---
PT WAITING FOR RIDE AT THIS TIME. CALLED DAUGHTER IN LAW FOR RIDE.
[2020-01-03 11:35] VITALS: BP_SYST 107
--- NOTE | 2020-01-03 11:35 | NUR ---
Patient given written and verbal discharge instructions and verbalizes understanding. ER MD discussed with patient the results and treatment provided. Patient in stable condition. ID arm band removed. IV catheter removed intact and dressing applied, no active bleeding. Patient educated on pain management and to follow up with PMD. Pain Scale 3/10. Opportunity for questions provided and answered. Medication side effect fact sheet provided.
== END 2020-01-03 11:35 | disposition home or self-care (01) ==
LOC: SED 06:11
DX: R10.30 Lower abdominal pain, unspecified (principal); J44.9 Chronic obstructive pulmonary disease, unspecified; I10 Essential (primary) hypertension; F32.9 Major depressive disorder, single episode, unspecified; F41.9 Anxiety disorder, unspecified; Z88.2 Allergy status to sulfonamides; Z79.899 Other long term (current) drug therapy
CPT/HCPCS: 36415; 74176; 80053; 81003; 85025; 96374; 96375; 99284; J1200; J2270; J7030

== ENCOUNTER 2021-04-20 05:22 | Observation (INO) | payer OTHER, SELFPAY ==
[~2021-04-20] VITALS: Ht 157.5 cm; Wt 44.7 kg
[2021-04-20 05:22] VITALS: BP_SYST 142
[~2021-04-20 05:22] MED LIST changes: -TRAZ-219 PO; +TRAZ-251 PO
[2021-04-20 06:11] LABS: BILIRUBIN,URINE NEGATIVE (NEGATIVE); BLOOD, URINE NEGATIVE (NEGATIVE); CLARITY/URINE CLEAR (CLEAR); COLOR,URINE YELLOW (YELLOW); GLUCOSE,URINE NEGATIVE (NEGATIVE); KETONES,URINE NEGATIVE (NEGATIVE); LEUKOCYTE ESTERASE ,URINE NEGATIVE (NEGATIVE); NITRITE, URINE NEGATIVE (NEGATIVE); PH,URINE 7.5 (5.0-8.0); PROTEIN URINE NEGATIVE (NEGATIVE); UROBILINOGEN,URINE 0.2 (0.2-1.0)
[2021-04-20] MEDS ORDERED: MORPHINE 4 MG INJ. 4 MG/ML VIAL IM ONE (06:15)
[2021-04-20 06:35] LABS: BASOPHILS % (AUTO) 0.5 % (0.0-2.0); EOSINOPHILS % (AUTO) 0.3 % (0.0-4.0); HEMATOCRIT 35.4 % (36-48); HEMOGLOBIN 11.3 g/dL (12.0-16.0); LYMPHOCYTES # (AUTO) 0.9 K/uL (1.0-5.5); LYMPHOCYTES % (AUTO) 12.5 % (20.5-51.5); MEAN CORPUSCULAR HEMOGLOBIN 26 pg (27-31); MEAN CORPUSCULAR HGB CONC 32 % (32-36); MEAN CORPUSCULAR VOLUME 81 fL (79.0-98.0); MONOCYTES # (AUTO) 0.4 K/uL (0.0-1.0); MONOCYTES % (AUTO) 6.1 % (1.7-9.3); NEUTROPHILS # (AUTO) 5.9 K/uL (1.8-7.7); NEUTROPHILS % (AUTO) 80.6 % (40.0-70.0); PLATELET COUNT (AUTO) 284 K/uL (130-430); RED BLOOD CELL COUNT(AUTO) 4.37 MIL/uL (4.2-6.2); RED CELL DISTRIBUTION WIDTH 15.6 % (9.0-15.0); WHITE BLOOD COUNT (AUTO) 7.3 K/uL (4.8-10.8)
[2021-04-20 06:47] LABS: ANION GAP 14 (5-15); CALCIUM 8.9 mg/dL (8.4-11.0); CHLORIDE 100 mmol/L (98-107); CREATININE 0.64 mg/dL (0.55-1.30); GLUCOSE 108 mg/dL (70-99); POTASSIUM 3.3 mmol/L (3.5-5.1); SODIUM SERUM 137 mmol/L (136-145); UREA NITROGEN, BLOOD 4 mg/dL (8-21)
[2021-04-20 06:52] LABS: INR 1.1 (0.8-1.2); PROTHROMBIN TIME 11.7 SECS (9.5-12.5)
[2021-04-20 06:55] LABS: ALANINE AMINOTRANSFERASE 13 U/L (12-78); ALBUMIN 3.7 g/dL (3.4-4.8); AMYLASE 53 U/L (0-100); ASPARTATE AMINOTRANSFERASE 21 U/L (10-37); LACTATE DEHYDROGENASE 174 U/L (81-234); LIPASE 49 U/L (73-393); TOTAL BILIRUBIN 0.5 mg/dL (0.0-1.0)
[2021-04-20 07:10] LABS: C-REACTIVE PROTEIN QUANT 0.8 mg/dL (0-0.5)
[2021-04-20] MEDS ORDERED: ALPRAZolam 0.25 MG TABLET PO ONE (07:45)
[2021-04-20] MEDS ORDERED: ONDANSETRON 4 MG ODT TAB PO ONE (08:00)
[2021-04-20] MEDS ORDERED: DIAZ2TAB3 PO (09:21)
[2021-04-20] MEDS ORDERED: HYOS0.1275 PO (09:21)
[2021-04-20] MEDS ORDERED: NEU100 PO (09:21)
[2021-04-20] MEDS ORDERED: TRAZ-251 PO (09:21)
[2021-04-20] MEDS ORDERED: PARO-41 PO (09:21)
[2021-04-20] MEDS ORDERED: IBUP-1970 PO (09:21)
[2021-04-20] MEDS ORDERED: HYDR-3610 PO (09:21)
[2021-04-20] MEDS ORDERED: DIPH50CA38 PO (09:27)
[2021-04-20 12:49] LABS: ACETAMINOPHEN 2 ug/mL (1-30)
[2021-04-20 12:50] LABS: BARBITURATE, URINE NEGATIVE (NEG <=200); BENZODIAZEPINE, URINE POSITIVE (NEG <=150); CANNABINOID, URINE NEGATIVE (NEG <=50); COCAINE, URINE NEGATIVE (NEG <=150); METHAMPHETAMINES SCREEN,URINE NEGATIVE (NEG <=500); OPIATE, URINE POSITIVE (NEG <=100); PHENCYCLIDINE SCREEN,URINE NEGATIVE (NEG <=25); UR TRICYCLIC ANTIDEPRESSANTS NEGATIVE (NEG <=300); URINE AMPHETAMINE NEGATIVE (NEG <=500); URINE METHADONE NEGATIVE (NEG <=200); URINE OXYCODONE SCREEN NEGATIVE (NEG <=100); URINE PROPOXYPHENE SCREEN NEGATIVE (NEG <=300)
[2021-04-20 12:53] LABS: ALCOHOL, BLOOD < 3 mg/dL (<10)
[2021-04-20] MEDS ORDERED: QUEtiapine FUMARATE 100 MG TABLET PO ONE (15:15)
[2021-04-20 18:56] VITALS: BP_SYST 154
[2021-04-20] MEDS ORDERED: ACETAMINOPHEN 325 MG TABLET PO PRN (19:15)
[2021-04-20] MEDS ORDERED: ALBUTEROL SULFATE 0.083% 2.5 MG/3 ML VIAL.NEB INH PRN (19:15)
[2021-04-20] MEDS ORDERED: NACL 0.9% 1,000 ML IV SCH (19:15)
[2021-04-20] MEDS ORDERED: DIPHENHYDRAMINE HCL 50 MG CAPSULE PO SCH (19:30)
[2021-04-20] MEDS ORDERED: DIAZEPAM 2 MG TABLET (VALIUM) PO PRN (19:30)
[2021-04-20] MEDS ORDERED: NALOXONE HCL 0.4 MG/ML AMP (NARCAN) IVP PRN (19:30)
[2021-04-20] MEDS ORDERED: HYOSCYAMINE SULFATE 0.125 MG TABLET PO PRN (19:30)
[2021-04-20] MEDS ORDERED: HYDROcodone/ACETAMIN 10-325 MG TAB PO PRN (19:30)
[2021-04-20 20:00] VITALS: BP_SYST 143
[2021-04-20 20:30] VITALS: BP_SYST 143
[2021-04-20] MEDS ORDERED: traZODone HCL 50 MG TABLET (DESYREL) PO SCH (21:00)
[2021-04-20] MEDS: GABAPENTIN 100 MG CAPSULE PO SCH (21:05)
[2021-04-20] MEDS: QUEtiapine FUMARATE 100 MG TABLET PO SCH (21:06)
[2021-04-21 00:05] VITALS: BP_SYST 140
[2021-04-21 06:20] VITALS: BP_SYST 143
[2021-04-21 06:45] LABS: BASOPHILS % (AUTO) 0.3 % (0.0-2.0); EOSINOPHILS % (AUTO) 0.8 % (0.0-4.0); HEMATOCRIT 34.6 % (36-48); HEMOGLOBIN 11.2 g/dL (12.0-16.0); LYMPHOCYTES # (AUTO) 0.9 K/uL (1.0-5.5); LYMPHOCYTES % (AUTO) 15.3 % (20.5-51.5); MEAN CORPUSCULAR HEMOGLOBIN 26 pg (27-31); MEAN CORPUSCULAR HGB CONC 32 % (32-36); MEAN CORPUSCULAR VOLUME 81 fL (79.0-98.0); MONOCYTES # (AUTO) 0.5 K/uL (0.0-1.0); MONOCYTES % (AUTO) 8.4 % (1.7-9.3); NEUTROPHILS # (AUTO) 4.5 K/uL (1.8-7.7); NEUTROPHILS % (AUTO) 75.2 % (40.0-70.0); PLATELET COUNT (AUTO) 251 K/uL (130-430); RED BLOOD CELL COUNT(AUTO) 4.27 MIL/uL (4.2-6.2); RED CELL DISTRIBUTION WIDTH 15.6 % (9.0-15.0)
[2021-04-21 07:02] LABS: ALANINE AMINOTRANSFERASE 13 U/L (12-78); ALBUMIN 3.2 g/dL (3.4-4.8); ANION GAP 8 (5-15); ASPARTATE AMINOTRANSFERASE 19 U/L (10-37); CALCIUM 8.5 mg/dL (8.4-11.0); CHLORIDE 105 mmol/L (98-107); CREATININE 0.63 mg/dL (0.55-1.30); GLUCOSE 102 mg/dL (70-99); POTASSIUM 3.6 mmol/L (3.5-5.1); SODIUM SERUM 141 mmol/L (136-145); TOTAL BILIRUBIN 0.4 mg/dL (0.0-1.0); UREA NITROGEN, BLOOD 6 mg/dL (8-21)
[2021-04-21 08:00] VITALS: BP_SYST 155
[2021-04-21] MEDS ORDERED: PARoxetine HCL 20 MG TABLET PO SCH (09:00)
[2021-04-21] MEDS ORDERED: PANTOPRAZOLE SODIUM 40 MG TAB PO SCH (09:00)
[2021-04-21] MEDS: QUEtiapine FUMARATE 100 MG TABLET PO SCH (09:06)
[2021-04-21] MEDS: GABAPENTIN 100 MG CAPSULE PO SCH (09:07)
[2021-04-21 11:20] VITALS: BP_SYST 153
[2021-04-21 12:09] VITALS: BP_SYST 153
== END 2021-04-21 13:50 | disposition home or self-care (01) ==
LOC: SED 05:22 → INTOOBSV 18:03 → SMU 18:03
PROVIDERS: ADMIT Internal Medicine Hospice and Palliative Medicine; ATTEND Internal Medicine Hospice and Palliative Medicine
DX: K56.7 Ileus, unspecified (principal); Z20.822 Contact with and (suspected) exposure to COVID-19; R53.1 Weakness; I10 Essential (primary) hypertension; J44.9 Chronic obstructive pulmonary disease, unspecified; G62.9 Polyneuropathy, unspecified; F41.8 Other specified anxiety disorders; F29 Unspecified psychosis not due to a substance or known physiological condition; Z79.899 Other long term (current) drug therapy
CPT/HCPCS: 36415 ×2; 74176; 76376; 80053 ×2; 80307; 81003; 82150; 82550; 83605; 83615; 83690; 83735; 84484; 85025 ×2; 85610; 85730; 86140; 87426; 96360; 96361 ×2; 96372; 97162; 99285; G0378 ×2; G0480; G0481; G0482; J2270; Q0162

== ENCOUNTER 2021-05-22 18:27 | Inpatient (IN) | payer OTHER, SELFPAY ==
[~2021-05-22] VITALS: Ht 157.5 cm; Wt 44.0 kg
[2021-05-22 18:27] VITALS: BP_SYST 120
[~2021-05-22 18:27] MED LIST changes: -ACET325T53 PO; -BISA-79 PO; +DIAZ2TAB3 PO; +DIPH50CA38 PO; +HYDR-3610 PO; +HYOS0.1275 PO; +IBUP-1970 PO; -LORA-259 PO; -LORA10TA7 PO; +NEU100 PO; +PARO-41 PO; -SER25 PO
--- NOTE | 2021-05-22 18:27 | NUR ---
Placed in room 5 . Placed on site monitor, blood pressure machine and pulse oximeter. To gown for exam. Side rails up.
--- NOTE | 2021-05-22 18:44 | NUR ---
PT BIB [facility] FOR COMPLAINTS OF GENERAL WEAKNESS. PT IS A&OX 3. FOUND BY THE MEDICS ON FLOOR OF HER HOUSE. REPORTS HITTING BACK OF HEAD AND UNABLE TO GET UP DUE TO WEAKNESS. PT REPORTS BEING ON THE FLOOR FOR OVER 10 HOURS AND YELLING HELP TO HER NEIGHBORS. PT COMPLAINS OF PAIN TO THE BACK OF THE HEAD RATED AT 8/10 AND CONTANT ABDOMINAL PAIN FOR A FEW YEARS RATED AT 8/10 WELL.
--- NOTE | 2021-05-22 18:47 | NUR ---
PT HAS A COLOSTOMY BAG PLACED TO THE RIGHT SIDE. WORKING PROPERLY
--- NOTE | 2021-05-22 18:49 | NUR ---
ER at bedside examining patient.
--- NOTE | 2021-05-22 19:03 | NUR ---
# 22 gauge angiocath placed to R HAND. Use of asceptic technique. Opsite placed over site. Blood return noted. Blood for lab drawn from site. Flushed with 10 cc of normal saline. No evidence of infiltration noted. Patient tolerated well.
--- NOTE | 2021-05-22 19:12 | NUR ---
PATIENT OFF UNIT TO CT SCAN.
[2021-05-22] MEDS ORDERED: NACL 0.9% 1,000 ML IV ONE (19:15)
[2021-05-22] MEDS ORDERED: MORPHINE 2 MG/ML INJ. SYRINGE IVP ONE (19:15)
[2021-05-22 19:22] LABS: BASOPHILS % (AUTO) 0.5 % (0.0-2.0); EOSINOPHILS # (AUTO) 0.1 K/uL (0.0-0.4); HEMATOCRIT 35.1 % (36-48); HEMOGLOBIN 11.1 g/dL (12.0-16.0); LYMPHOCYTES # (AUTO) 1.4 K/uL (1.0-5.5); LYMPHOCYTES % (AUTO) 15.8 % (20.5-51.5); MEAN CORPUSCULAR HEMOGLOBIN 26 pg (27-31); MEAN CORPUSCULAR HGB CONC 32 % (32-36); MEAN CORPUSCULAR VOLUME 83 fL (79.0-98.0); MONOCYTES # (AUTO) 0.8 K/uL (0.0-1.0); MONOCYTES % (AUTO) 9.5 % (1.7-9.3); NEUTROPHILS # (AUTO) 6.5 K/uL (1.8-7.7); NEUTROPHILS % (AUTO) 73.2 % (40.0-70.0); PLATELET COUNT (AUTO) 243 K/uL (130-430); RED CELL DISTRIBUTION WIDTH 17.6 % (9.0-15.0); WHITE BLOOD COUNT (AUTO) 8.9 K/uL (4.8-10.8)
[2021-05-22 19:33] LABS: ANION GAP 7 (5-15); CALCIUM 8.6 mg/dL (8.4-11.0); CHLORIDE 98 mmol/L (98-107); GLUCOSE 97 mg/dL (70-99); SODIUM SERUM 134 mmol/L (136-145); UREA NITROGEN, BLOOD 8 mg/dL (8-21)
--- NOTE | 2021-05-22 19:40 | NUR ---
# 16 FR In and Out catheter with use of sterile technique. Immediate return of 200ml clear yellow urine noted. Urine sample collected and sent to lab. Pt tolerated procedure well Patient unable to toilet self.
[2021-05-22 19:41] LABS: ALANINE AMINOTRANSFERASE 28 U/L (12-78); ALBUMIN 3.4 g/dL (3.4-4.8); ASPARTATE AMINOTRANSFERASE 40 U/L (10-37); LIPASE 42 U/L (73-393); TOTAL BILIRUBIN 0.5 mg/dL (0.0-1.0)
[2021-05-22 20:00] LABS: BILIRUBIN,URINE NEGATIVE (NEGATIVE); BLOOD, URINE NEGATIVE (NEGATIVE); CLARITY/URINE CLEAR (CLEAR); COLOR,URINE YELLOW (YELLOW); GLUCOSE,URINE NEGATIVE (NEGATIVE); KETONES,URINE NEGATIVE (NEGATIVE); LEUKOCYTE ESTERASE ,URINE NEGATIVE (NEGATIVE); NITRITE, URINE NEGATIVE (NEGATIVE); PROTEIN URINE NEGATIVE (NEGATIVE); UROBILINOGEN,URINE 0.2 (0.2-1.0)
--- NOTE | 2021-05-22 21:35 | NUR ---
Patient requesting Colostomy bag change. Hollester bag change with no incidence. Patient tolerated well.
[2021-05-22] MEDS ORDERED: ACETAMINOPHEN 325 MG TABLET PO PRN (23:00)
[2021-05-22] MEDS ORDERED: ALBUTEROL SULFATE 0.083% 2.5 MG/3 ML VIAL.NEB INH PRN (23:00)
[2021-05-22] MEDS ORDERED: PANTOPRAZOLE SODIUM 40 MG TAB PO ONE (23:15)
[2021-05-22] MEDS ORDERED: HYOSCYAMINE SULFATE 0.125 MG TABLET PO SCH (23:15)
[2021-05-22] MEDS ORDERED: DIPHENHYDRAMINE HCL 50 MG CAPSULE PO SCH (23:15)
--- NOTE | 2021-05-22 23:22 | NUR ---
MED REC COMPLETE
--- NOTE | 2021-05-22 23:27 | NUR ---
PT BELONGINGS COMPLETE
[2021-05-23] VITALS (7 sets, daily range): BP systolic 113–138
--- NOTE | 2021-05-23 00:18 | NUR ---
Patient will be admitted to care of DR GÓMEZ. Admitted to MED SURG OBS unit. BED PLACEMENT PENDING. SHAHZAD, CHARGE NURSE NOTIFIED. Belongings list completed. Complete and up to date summary report printed. SBAR report to be given at bedside with opportunity for questions.
--- NOTE | 2021-05-23 00:42 | NUR ---
Transfer to [facility]. IV present no sign or symptom of infiltration.
--- NOTE | 2021-05-23 00:55 | NUR ---
ADMISSION NOTE Received patient from ER via gurney. Patient admitted with diagnosis of fall. Patient is awake, alert, oriented X 4. Patient oriented to hospital room, call light, toileting, pain management and safety-teach back done. Patient informed that mallory will be nurse and that their room number is 120B. Personal belongings checked and Belongings List documented. Call light within reach.
--- NOTE | 2021-05-23 06:17 | NUR ---
CLOSING NOTE PT RESTING IN BED BREATHING NONLABORED TO ROOM AIR. COLOSTOMY BAG IN PLACE. IV ON LW#24 GAUGE SALINE LOCKED. PT BED ALARM ON, LOCKED IN LOWEST POSITION. SIDE RAILS UP. CALL LIGHT WITHIN REACH. SAFETY FALL PRECAUTIONS MAINTAINED. WILL ENDORSE TO DAYSHIFT RN
[2021-05-23 06:58] LABS: BASOPHILS % (AUTO) 0.4 % (0.0-2.0); EOSINOPHILS # (AUTO) 0.2 K/uL (0.0-0.4); EOSINOPHILS % (AUTO) 4.8 % (0.0-4.0); HEMATOCRIT 30.4 % (36-48); HEMOGLOBIN 9.9 g/dL (12.0-16.0); LYMPHOCYTES # (AUTO) 1.2 K/uL (1.0-5.5); LYMPHOCYTES % (AUTO) 22.2 % (20.5-51.5); MEAN CORPUSCULAR HEMOGLOBIN 27 pg (27-31); MEAN CORPUSCULAR HGB CONC 33 % (32-36); MEAN CORPUSCULAR VOLUME 83 fL (79.0-98.0); MONOCYTES # (AUTO) 0.6 K/uL (0.0-1.0); MONOCYTES % (AUTO) 11.6 % (1.7-9.3); NEUTROPHILS # (AUTO) 3.2 K/uL (1.8-7.7); PLATELET COUNT (AUTO) 201 K/uL (130-430); RED BLOOD CELL COUNT(AUTO) 3.66 MIL/uL (4.2-6.2); RED CELL DISTRIBUTION WIDTH 16.8 % (9.0-15.0); WHITE BLOOD COUNT (AUTO) 5.2 K/uL (4.8-10.8)
[2021-05-23 07:34] LABS: ALANINE AMINOTRANSFERASE 23 U/L (12-78); ALBUMIN 2.8 g/dL (3.4-4.8); ANION GAP 7 (5-15); ASPARTATE AMINOTRANSFERASE 31 U/L (10-37); CHLORIDE 104 mmol/L (98-107); CREATININE 0.61 mg/dL (0.55-1.30); GLUCOSE 89 mg/dL (70-99); POTASSIUM 3.8 mmol/L (3.5-5.1); SODIUM SERUM 137 mmol/L (136-145); TOTAL BILIRUBIN 0.5 mg/dL (0.0-1.0); UREA NITROGEN, BLOOD 6 mg/dL (8-21)
[2021-05-23] MEDS: GABAPENTIN 100 MG CAPSULE PO SCH ×2 (09:32→20:23)
[2021-05-23] MEDS: PARoxetine HCL 20 MG TABLET PO SCH (09:32)
[2021-05-23] MEDS: QUEtiapine FUMARATE 100 MG TABLET PO SCH ×2 (09:32→20:23)
--- NOTE | 2021-05-23 09:33 | NUR ---
Scheduled po medications given per order. Patient resting comfortably in bed at this time. Stable.
--- NOTE | 2021-05-23 09:40 | NUR ---
Patient resting comfortably in bed with Dr. Florence Desai at bedside.
--- NOTE | 2021-05-23 10:02 | NUR ---
Nutrition Update Rosendo Scale 15 noted. Pt admitted for fall, R hip fracture, weakness. Diet: cardiac BMI: 17.8 kg/m2 RD to follow per nutrition care standards.
[2021-05-23] MEDS ORDERED: DIPHENHYDRAMINE HCL 50 MG CAPSULE PO PRN (10:47)
--- NOTE | 2021-05-23 12:00 | NUR ---
Patient resting quietly in bed with no complaint of pain or discomfort. Patient stable at this time.
--- NOTE | 2021-05-23 15:42 | NUR ---
Dietitian Recommendations * Cardiac diet w/ Ensure Enlive BID, Waylon BID (supplements provide 880 kcal/day, 45 gm protein/day) * Encourage increase PO intakes LP, RD Please refer to Nutrition F/U for details. Addendum: 05/23/21 at [address] Amended: Links added.
--- NOTE | 2021-05-23 18:15 | NUR ---
Patient resting comfortably in bed with no distress noted. Denies any pain at this time. Patient stable throughout shift.
--- NOTE | 2021-05-23 19:15 | NUR ---
change of shift.pt.presents quiescent affect;calm,resting viewing tv programming.pt.presents bedrest status.pt.presents s/p fall hx.pt.presents iv access intact location:lt.wrist iv lock.general status stable.respiratory status stable;unlabored@room air. call light/telephone w/in access of the pt.
--- NOTE | 2021-05-23 20:00 | NUR ---
pt.assessed.v/s assessed values w/in normal limits.no c/o pain,nausea.i have apprised the pt.that snacks/beverages are available w/in the shift.no requests posited@this hour.pt.requested assistance w the bedpan.i have assisted the pt.i have attend to the colostomy;rlq.general status stable.respiratory status stable;unlabored .pt.capable to reposition self.call light/telephone placed w/in access of the pt. Addendum: 05/24/21 at 0409 by Dae Nazario RN colostomy bag location rlq intact.fecal material present.
[2021-05-23] MEDS: traZODone HCL 50 MG TABLET (DESYREL) PO SCH (20:23)
--- NOTE | 2021-05-23 21:00 | NUR ---
2100pmedications administered.pt.capable to ingest the po medications w/out difficulty.medications required to be crushed: mixture apple sauce.no c/o pain,nausea.call light w/in access of the pt.
--- NOTE | 2021-05-23 22:00 | NUR ---
pt.assessed.pt.requested assistance w the bedpan.i have assisted the pt.no c/o pain,nausea.pt.had requested a blanket;provided. warmed. iv access intact.general status stable.respiratory status stable;unlabored.pt.capable to reposition self.call light/telephone placed w/in access of the pt. Addendum: 05/24/21 at 0410 by Dae Nazario RN colostomy bag assessed intact;fecal material present.
--- NOTE | 2021-05-24 | NUR ---
pt.assessed.v/s assessed values w/in normal limits.no c/o pain,nausea.no requests posited@this hour:snacks/beverages.pt.had requested the bedpan i have assisted the pt.general status stable.respiratory status stable;unlabored.pt.capable to reposition self.call light/telephone w/w/in access of the pt. Addendum: 05/24/21 at 0411 by Dae Nazario RN colostomy bag assessed intact fecal material present.
[2021-05-24 01:05] VITALS: BP_SYST 110
--- NOTE | 2021-05-24 02:00 | NUR ---
pt.assessed.pt.presents quiescent affect;calm,somno;lnewt.per flac cpauij mgx pt absmnene facila gromaces/body psotuirng. geners stsu stsle.respaiutpreyustsu stel.;uanlabored.pt.capble to retio se';aprylcallight/telephone w/in access of therpt/. Addendum: 05/24/21 at 0411 by Dae Nazario RN colostomy bag assessed intact fecal material present.
--- NOTE | 2021-05-24 04:00 | NUR ---
pt.assessed.pt.presents quiescent affect;calm,somnolent.per flacc pain mgx pt.absent facial grimaces/body posturing. pt.assessed for cleanliness.pt.repositioned.call light/telephone placed w/in access of the pt. Addendum: 05/24/21 at 0412 by Dae Nazario RN colostomy bag assessed intact fecal material present.
--- NOTE | 2021-05-24 06:03 | NUR ---
pt.assessed.pt.presents quiescent affect;calm,resting.no c/o pain,nausea.i have attended to the colostomy bag.cleaned. no requests posited@this hour.pt.capable to reposition self.call light/telephone w/in access of the pt.
--- NOTE | 2021-05-24 08:00 | NUR ---
OPENING NOTES: PATIENT RESTING IN BED. NO SIGNS OF ACUTE DISTRESS NOTED. PATIENT IS CALM AND COOPERATIVE. COLOSTOMY BAG IN PLACED. BED LOCKED, ALARM ON, AND IN LOWEST POSITION. FALL AND SAFETY PRECAUTION RENDERED. CALL LIGHT WITHIN REACH.
[2021-05-24 08:06] VITALS: BP_SYST 134
[2021-05-24] MEDS: QUEtiapine FUMARATE 100 MG TABLET PO SCH ×2 (09:08→20:31)
[2021-05-24] MEDS: PARoxetine HCL 20 MG TABLET PO SCH (09:09)
[2021-05-24] MEDS: GABAPENTIN 100 MG CAPSULE PO SCH ×2 (09:09→20:31)
[2021-05-24] MEDS: HYDROcodone/ACETAMIN 10-325 MG TAB PO PRN ×2 (11:32→20:31)
[2021-05-24 12:00] VITALS: BP_SYST 132
--- NOTE | 2021-05-24 18:57 | NUR ---
closing notes: PATIENT RESTING IN BED. NO SIGNS OF ACUTE DISTRESS NOTED. FALL AND SAFETY PRECAUTION REINFORCED. CALL LIGHT WITHIN REACH.
--- NOTE | 2021-05-24 19:50 | NUR ---
OPENING NOTES Received report from KAREN Phillips. Patient sitting on BSC, AAOx4, with moments of forgetfulness, breathing evenly and non labored on room air. Patient has an IV on the left wrist, flushed, patent and benign, no s/s of infection or infiltration noted at this time. Educated patient on plan of care, fall/safety precautions, call light system, patient stated understanding with return demonstration. Bed is locked and at lowest position, will continue to monitor.
[2021-05-24 20:30] VITALS: BP_SYST 127
[2021-05-24] MEDS: traZODone HCL 50 MG TABLET (DESYREL) PO SCH (20:31)
[2021-05-25 00:48] VITALS: BP_SYST 130
[2021-05-25] MEDS: HYDROcodone/ACETAMIN 10-325 MG TAB PO PRN ×3 (05:24→23:12)
--- NOTE | 2021-05-25 06:09 | NUR ---
CLOSING NOTES Patient resting in bed, awake, breathing evenly and non labored on room air. Patient received medications when due, tolerated them well. Patient complained of pain and was given PRN pain medication last night at 2030 and this morning at 523. Hygiene care was done with [employer]. Colostomy bag leaked, bag replaced, patient tolerated it well. No s/s of distress at this time, no other needs at this time. Needs met throughout the shift. Fall/safety precautions, will endorse care to morning shift RN.
[2021-05-25 06:51] LABS: BASOPHILS % (AUTO) 0.2 % (0.0-2.0); EOSINOPHILS # (AUTO) 0.1 K/uL (0.0-0.4); HEMATOCRIT 31.9 % (36-48); HEMOGLOBIN 10.4 g/dL (12.0-16.0); LYMPHOCYTES # (AUTO) 0.8 K/uL (1.0-5.5); LYMPHOCYTES % (AUTO) 12.6 % (20.5-51.5); MEAN CORPUSCULAR HEMOGLOBIN 27 pg (27-31); MEAN CORPUSCULAR HGB CONC 33 % (32-36); MEAN CORPUSCULAR VOLUME 84 fL (79.0-98.0); MONOCYTES # (AUTO) 0.6 K/uL (0.0-1.0); MONOCYTES % (AUTO) 8.8 % (1.7-9.3); NEUTROPHILS # (AUTO) 4.9 K/uL (1.8-7.7); NEUTROPHILS % (AUTO) 77.4 % (40.0-70.0); PLATELET COUNT (AUTO) 204 K/uL (130-430); RED BLOOD CELL COUNT(AUTO) 3.81 MIL/uL (4.2-6.2); RED CELL DISTRIBUTION WIDTH 16.9 % (9.0-15.0); WHITE BLOOD COUNT (AUTO) 6.3 K/uL (4.8-10.8)
[2021-05-25 07:01] LABS: ANION GAP 8 (5-15); CALCIUM 8.3 mg/dL (8.4-11.0); CHLORIDE 101 mmol/L (98-107); CREATININE 0.62 mg/dL (0.55-1.30); GLUCOSE 97 mg/dL (70-99); POTASSIUM 4.1 mmol/L (3.5-5.1); SODIUM SERUM 136 mmol/L (136-145); UREA NITROGEN, BLOOD 6 mg/dL (8-21)
--- NOTE | 2021-05-25 08:00 | NUR ---
OPENING NOTES: PATIENT EATING BREAKFAST. BREATHING EVEN AND NON LABORED TO ROOM AIR. DENIES ANY DISCOMFORT AT THIS TIME. SAFETY AND FALL PRECAUTION REINFORCED. BED LOCKED, ALARM AND IN LOWEST POSITION. CALL LIGHT WITHIN REACH.
[2021-05-25 08:14] VITALS: BP_SYST 112
[2021-05-25] MEDS: QUEtiapine FUMARATE 100 MG TABLET PO SCH ×2 (09:02→20:01)
[2021-05-25] MEDS: PARoxetine HCL 20 MG TABLET PO SCH (09:02)
[2021-05-25] MEDS: GABAPENTIN 100 MG CAPSULE PO SCH ×2 (09:02→20:01)
[2021-05-25] MEDS ORDERED: PARO-41 PO (11:31)
[2021-05-25] MEDS ORDERED: BEN50 PO (11:31)
[2021-05-25] MEDS ORDERED: HYDR-3927 PO (11:31)
[2021-05-25 12:09] VITALS: BP_SYST 94
--- NOTE | 2021-05-25 12:49 | NUR ---
RN NOTES: PATIENT C/O PAIN AT THE BACK, SACRAL AREA AND LOWER EXTREMITIES RATED 8/10. NORCO GIVEN ORDERED. NO SIGNS OF ACUTE DISTRESS NOTED. FALL AND SAFETY PRECAUTION RENDERED.
[2021-05-25 16:09] VITALS: BP_SYST 110
--- NOTE | 2021-05-25 16:31 | NUR ---
SPOKE WITH JA TTAE REVISING CLERK MS MANDUJANO BRANDO RE: UPDATE OF SNF PLACEMENT. MS MANDUJANO SAID THAT SHE IS STILL WORKING ON IT. SHE WILL CERTAINLY CALL ME SOON SHE GETS ONE.
--- NOTE | 2021-05-25 18:46 | NUR ---
CLOSING NOTES: PATIENT RESTING IN BED. BREATHING EVEN AND NON LABORED TO ROOM AIR. BED LOCKED, ALARM ON AND IN LOWEST POSITION. FALL AND SAFETY PRECAUTION RENDERED. LAURA LIGHT WITHIN REACH.
--- NOTE | 2021-05-25 19:30 | NUR ---
OPENING NOTE RECEIVED REPORT FROM DAY RN. PT AAOX4. IN BED WITH RESPIRATIONS EVEN AND UNLABORED ON RA. RIGHT SIDED COLOSTOMY BAG INTACT WITH SMALL AMOUNT OF FECAL MATTER RETAINED IN BAG. PT ASSISTED TO BEDSIDE COMMODE WHERE A SCANT AMOUNT OF URINE WAS VOIDED. PT STEADY WHILE TRANSFERRING FROM BED TO COMMODE. RETURNED PT TO BED WITH NO DISTRESS. LEFT WRIST 24G IV CLEAN, DRY, AND INTACT. NO SIGNS OF INFILTRATION NOTED. FLUSHED WELL. BED IN LOW AND LOCKED POSITION. CALL LIGHT WITHIN REACH. SAFETY/FALL PRECAUTIONS IN PLACE. WILL CONTINUE TO MONITOR.
[2021-05-25 20:00] VITALS: BP_SYST 107
[2021-05-25] MEDS: traZODone HCL 50 MG TABLET (DESYREL) PO SCH (20:01)
--- NOTE | 2021-05-25 20:10 | NUR ---
SCHEDULED MEDICATIONS ADMINISTERED. TABLETS CRUSHED AND MIXED WITH APPLESAUCE PER PT REQUEST. CAPSULE SWALLOWED WHOLE BY PT WITH NO DIFFICULTY. PT TOLERATED WELL. SAFETY/FALL PRECAUTIONS IN PLACE. WILL CONTINUE TO MONITOR.
[2021-05-26 00:14] VITALS: BP_SYST 119
--- NOTE | 2021-05-26 03:28 | NUR ---
ROUNDED PT SLEEPING IN BED. RESPIRATIONS EVEN AND UNLABORED ON RA. NO SIGNS OF DISTRESS NOTED. LEFT WRIST 24G IV SALINE LOCKED INTACT. BED IN LOW AND LOCKED POSITION. CALL LIGHT WITHIN REACH. SAFETY/FALL PRECAUTIONS IN PLACE. WILL CONTINUE TO MONITOR.
--- NOTE | 2021-05-26 06:10 | NUR ---
CLOSING NOTE PT LAYING IN BED WITH RESPIRATIONS EVEN AND UNLABORED ON RA. PT STATES, "ITS COLD". ADDITIONAL BLANKET PROVIDED. COLOSTOMY BAG INTACT WITH BROWN SOFT STOOL. LEFT WRIST 24G IV CLEAN, DRY AND INTACT WITH NO SIGNS OF INFILTRATION. ALL NEEDS MET THROUGHOUT THE NIGHT. BED IN LOW AND LOCKED POSITION. CALL LIGHT WITHIN REACH. SAFETY/FALL/ASPIRATION PRECAUTIONS IN PLACE. WILL ENDORSE TO DAY RN.
[2021-05-26 06:37] LABS: BASOPHILS % (AUTO) 0.3 % (0.0-2.0); EOSINOPHILS % (AUTO) 0.6 % (0.0-4.0); HEMATOCRIT 33.2 % (36-48); HEMOGLOBIN 10.9 g/dL (12.0-16.0); LYMPHOCYTES # (AUTO) 0.5 K/uL (1.0-5.5); LYMPHOCYTES % (AUTO) 6.7 % (20.5-51.5); MEAN CORPUSCULAR HEMOGLOBIN 28 pg (27-31); MEAN CORPUSCULAR HGB CONC 33 % (32-36); MEAN CORPUSCULAR VOLUME 83 fL (79.0-98.0); MONOCYTES # (AUTO) 0.8 K/uL (0.0-1.0); MONOCYTES % (AUTO) 10.5 % (1.7-9.3); NEUTROPHILS % (AUTO) 81.9 % (40.0-70.0); PLATELET COUNT (AUTO) 209 K/uL (130-430); RED BLOOD CELL COUNT(AUTO) 3.98 MIL/uL (4.2-6.2); RED CELL DISTRIBUTION WIDTH 17.4 % (9.0-15.0); WHITE BLOOD COUNT (AUTO) 7.4 K/uL (4.8-10.8)
[2021-05-26 06:46] LABS: ALANINE AMINOTRANSFERASE 21 U/L (12-78); ALBUMIN 2.9 g/dL (3.4-4.8); ANION GAP 7 (5-15); ASPARTATE AMINOTRANSFERASE 27 U/L (10-37); CALCIUM 8.6 mg/dL (8.4-11.0); CHLORIDE 101 mmol/L (98-107); CREATININE 0.66 mg/dL (0.55-1.30); GLUCOSE 101 mg/dL (70-99); POTASSIUM 4.3 mmol/L (3.5-5.1); SODIUM SERUM 135 mmol/L (136-145); TOTAL BILIRUBIN 0.5 mg/dL (0.0-1.0); UREA NITROGEN, BLOOD 5 mg/dL (8-21)
--- NOTE | 2021-05-26 07:56 | NUR ---
Initial notes Awake, oriented. assisted to the bedside commode and voided. Denies any pain or discomfort. feels cold, provided more blanket. safety precaution observed. call light within reach. enc to call for help. verbalize understanding.
[2021-05-26 08:08] VITALS: BP_SYST 137
[2021-05-26] MEDS: GABAPENTIN 100 MG CAPSULE PO SCH (08:29)
[2021-05-26] MEDS: PARoxetine HCL 20 MG TABLET PO SCH (08:29)
[2021-05-26] MEDS: QUEtiapine FUMARATE 100 MG TABLET PO SCH (08:29)
[2021-05-26] MEDS: HYDROcodone/ACETAMIN 10-325 MG TAB PO PRN (08:29)
--- NOTE | 2021-05-26 08:35 | NUR ---
Notes Complain of some generalized pain, medicated with norco.
--- NOTE | 2021-05-26 10:06 | NUR ---
CASE MANAGEMENT SPOKE WITH NAZIA MICHAELS PROCUREMENT INSPECTOR FOR [facility], SHE INFORMED ME PATIENT WILL GO TO [facility] ROOM 16B AND MAKE AMBULANCE ARRANGEMENTS WITH [facility] AUTHORIZATION [id number].
--- NOTE | 2021-05-26 10:10 | NUR ---
AMBULANCE ARRANGEMENT MADE MEDIC-1 CALLED AT SPOKE WITH DAWNA SCHEDULED COFFEE ROASTER HELPER TIME FOR 1300 (1PM) VIA S AMBUALNCE..
[2021-05-26 11:24] VITALS: BP_SYST 137
--- NOTE | 2021-05-26 11:30 | NUR ---
BED AVAILABLE AT [facility] TODAY ROOM 16B. CALL REPORT TO [phone]. PLEASE ARRANGE WITH MEDIC 1 USING AUTH [id number]. [phone]
--- NOTE | 2021-05-26 12:00 | NUR ---
Notes Patient wants [place] before she leave, Ask Dr. Davison and okayed to give [place].
[2021-05-26] MEDS ORDERED: HYDROcodone/ACETAMIN 10-325 MG TAB PO ONE (12:30)
--- NOTE | 2021-05-26 12:35 | NUR ---
HIGH ALERT NOTE: Called Dr. altamirano back at [phone] identified within the medical roster to verify physician authenticity.
--- NOTE | 2021-05-26 13:04 | NUR ---
Notes discharge patient to [facility] via ambulance, awake, no distress, complain of generalized pain, medicated with norco as ordered. IVL and Arm band removed. all belongings sent including medications to the ambulance staff. report given to Elena at [facility].
--- NOTE | 2021-05-26 13:05 | NUR ---
Nutrition F/U Admitting Diagnosis:Fall, R hip fracture, weakness Medical History Comment: PMH: COPD, HTN, depression, anxiety, non-smoker, L hip fracture (2010), normally walks at baseline per physician notes; colon resection (2018) colostomy to RLQ per RD note 04/21/19 SARS-CoV-2 Ag (Rapid) Negative 05/22 Subjective Information Per MD note: r/o hip fracture; pt was started on physical therapy and is able to walk and at this time, the patient's pain is controlled. The [facility] per MD note. Pt was seen bedside by sports team marketing intern and RD. Pt reported some N/V this morning. Pt passing stool via colostomy. Pt said she is tolerating diet but has not been receiving Ensure Enlive or Waylon that was ordered. RD asked c.o.d. clerk to add Ensure Enlive and Waylon in computrition and to make sure pt receives Ensure Enlive and Waylon BID. Per EMR review, abdomen is soft and non-distended w/ active bowel sounds. Fair PO intake 60% x 10 meals per EMR review.Rosendo scale: 19 w/ skin tear to anterior thigh, lower R leg skin tear, R back w/ ecchymosis, and sacrum skin tear. Current Diet Order/Nutrition Support: Cardiac w/ Ensure Enlive BID and Waylon BID x 3 days. Pertinent Medications: Desyrel, Seroquel Pertinent Labs: 05/26 Na 135L, K 4.3WNL, BG 101H, BUN 5L Cre 0.66WNL. Height. 52 Weight: 97#/ 43.9kg (05/23) --stable Body Mass Index: 17.74 kg/m2 Usual Weight: 100# %UBW: 97 %IBW: 88 Cobb/Adjusted Body Weight: IBW: 110#/50 kg Recent Weight Change:No Weight Status: Underweight Current % PO: Fair (50-74%) Estimated Energy Expenditure (kcals/day) 1580-1666 kcal/day (25-30 kcal/kg IBW for wt gain promotion) Estimated Protein Required (g/day) 60-75 gm/day (1.2-1.5 gm/kg IBW for wt gain promotion) Estimated Fluid Required (l/day) 1.3-1.5 L/day (1 ml/kcal/day for geriatric maintenance) Problem/Etiology/Signs/Symptoms Risk for malnutrition related to underweight status/appearance as evidenced by BMI: 17.8 kg/m2 and 88% of IBW. (ongoing) Expected Outcomes/Goals - Monitor appetite and PO intakes w/ goal of pt meeting at least 75% of estimated nutritional needs, labs trending WNL, normal GI function, and skin integrity/wt maintenance Dietitian Recommendations * Continue cardiac diet w/ Ensure Enlive BID, Waylon BID (supplements provide 880 kcal/day, 45 gm protein/day) * Encourage increase PO intakes Follow Up High Risk: F/U in 2-3days
--- NOTE | 2021-05-26 13:08 | NUR ---
Dietitian Recommendations * Continue cardiac diet w/ Ensure Enlive BID, Waylon BID (supplements provide 880 kcal/day, 45 gm protein/day) * Encourage increase PO intake Please see Nutrition F/U note for details.
[2021-05-26 13:35] VITALS: BP_SYST 105
== END 2021-05-26 13:04 | DRG 554 ==
LOC: SED 18:27 → SMU 22:59 → OBSVTOIN 05-23 07:49 → STU 05-23 07:50 → SMU 05-24 15:35
PROVIDERS: ADMIT Internal Medicine Hospice and Palliative Medicine; ATTEND Internal Medicine Hospice and Palliative Medicine
DX: M16.11 Unilateral primary osteoarthritis, right hip (principal); J44.9 Chronic obstructive pulmonary disease, unspecified; I10 Essential (primary) hypertension; F32.9 Major depressive disorder, single episode, unspecified; F41.9 Anxiety disorder, unspecified; Z60.2 Problems related to living alone; W18.39XA Other fall on same level, initial encounter; R94.8 Abnormal results of function studies of other organs and systems; Z20.822 Contact with and (suspected) exposure to COVID-19; R53.81 Other malaise; Z88.6 Allergy status to analgesic agent; Z88.2 Allergy status to sulfonamides; Z93.3 Colostomy status; Z79.899 Other long term (current) drug therapy; Y93.89 Activity, other specified; Y92.89 Other specified places as the place of occurrence of the external cause; Y99.8 Other external cause status
CPT/HCPCS: 36415; 70450-TC; 71250-TC; 72125-TC; 73502; 73552; 76376; 80048; 80053; 81003; 82550; 83605; 83690; 84484; 85025; 87040-TC; 93005; 96361; 96374; 97116-GP; 97163-GP; 97530-GP; 99285; G0378; J2270; Q0163

== ENCOUNTER 2021-07-02 08:10 | Emergency (ER) | payer OTHER, SELFPAY ==
[~2021-07-02] VITALS: Ht 152.4 cm; Wt 40.8 kg
[2021-07-02 08:10] VITALS: BP_SYST 114
[~2021-07-02 08:10] MED LIST changes: +BEN50 PO; -DIPH50CA38 PO; -HYDR-3610 PO; +HYDR-3927 PO; -IBUP-1970 PO
--- NOTE | 2021-07-02 08:10 | NUR ---
BROUGHT IN BY [facility] AND PLACED IN HALLWAY, TRIAGED. REPORT GIVEN TO RICK
--- NOTE | 2021-07-02 08:29 | NUR ---
Pt brought in by bls for c/o abd pain and anxiety since this morning. No signs of distress noted. Pt is A&O and states she is having abd pain and is out of her RX of gabapentin and needs a refill. steady gate, perrla, skin warm and intact. Colostomy present with pink stoma, and soft brown stool in colostomy bag.
[2021-07-02] MEDS ORDERED: ONDANSETRON HCL 4 MG/2 ML VIAL IVP ONE (08:30)
[2021-07-02] MEDS ORDERED: MORPHINE 4 MG INJ. 4 MG/ML VIAL IVP ONE (08:30)
[2021-07-02] MEDS ORDERED: DIPHENHYDRAMINE INJ 50 MG/ML VIAL IVP ONE ×2 (08:30→12:00)
[2021-07-02] MEDS ORDERED: NACL 0.9% 1,000 ML IV ONE ×2 (08:30→11:15)
--- NOTE | 2021-07-02 08:30 | NUR ---
ER at bedside examining patient.
--- NOTE | 2021-07-02 08:30 | NUR ---
# 24 gauge angiocath placed to right arm. Use of asceptic technique. Opsite placed over site. Blood return noted. Blood for lab drawn from site. Flushed with 10 cc of normal saline. No evidence of infiltration noted. Patient tolerated well.
--- NOTE | 2021-07-02 08:40 | NUR ---
IV medications given per md order.
--- NOTE | 2021-07-02 08:50 | NUR ---
Pt walked to bathroom to void clear yellow urine.
[2021-07-02 09:07] LABS: BASOPHILS % (AUTO) 0.5 % (0.0-2.0); EOSINOPHILS # (AUTO) 0.1 K/uL (0.0-0.4); EOSINOPHILS % (AUTO) 1.2 % (0.0-4.0); HEMATOCRIT 36.8 % (36-48); HEMOGLOBIN 12.1 g/dL (12.0-16.0); LYMPHOCYTES # (AUTO) 1.3 K/uL (1.0-5.5); LYMPHOCYTES % (AUTO) 17.2 % (20.5-51.5); MEAN CORPUSCULAR HEMOGLOBIN 27 pg (27-31); MEAN CORPUSCULAR HGB CONC 33 % (32-36); MEAN CORPUSCULAR VOLUME 81 fL (79.0-98.0); MONOCYTES # (AUTO) 0.6 K/uL (0.0-1.0); MONOCYTES % (AUTO) 7.7 % (1.7-9.3); NEUTROPHILS # (AUTO) 5.4 K/uL (1.8-7.7); NEUTROPHILS % (AUTO) 73.4 % (40.0-70.0); PLATELET COUNT (AUTO) 241 K/uL (130-430); RED BLOOD CELL COUNT(AUTO) 4.53 MIL/uL (4.2-6.2); RED CELL DISTRIBUTION WIDTH 15.7 % (9.0-15.0); WHITE BLOOD COUNT (AUTO) 7.4 K/uL (4.8-10.8)
[2021-07-02 09:33] LABS: ANION GAP 8 (5-15); CHLORIDE 103 mmol/L (98-107); CREATININE 0.51 mg/dL (0.55-1.30); GLUCOSE 89 mg/dL (70-99); POTASSIUM 3.4 mmol/L (3.5-5.1); SODIUM SERUM 137 mmol/L (136-145); UREA NITROGEN, BLOOD 4 mg/dL (8-21)
[2021-07-02 09:40] LABS: ALANINE AMINOTRANSFERASE 14 U/L (12-78); ASPARTATE AMINOTRANSFERASE 18 U/L (10-37); LIPASE 58 U/L (73-393); TOTAL BILIRUBIN 0.2 mg/dL (0.0-1.0)
[2021-07-02 10:35] LABS: BILIRUBIN,URINE NEGATIVE (NEGATIVE); BLOOD, URINE NEGATIVE (NEGATIVE); CLARITY/URINE CLEAR (CLEAR); COLOR,URINE YELLOW (YELLOW); GLUCOSE,URINE NEGATIVE (NEGATIVE); KETONES,URINE NEGATIVE (NEGATIVE); LEUKOCYTE ESTERASE ,URINE NEGATIVE (NEGATIVE); NITRITE, URINE NEGATIVE (NEGATIVE); PROTEIN URINE NEGATIVE (NEGATIVE); UROBILINOGEN,URINE 0.2 (0.2-1.0)
[2021-07-02] MEDS ORDERED: LORazepam 2 MG/ML VIAL IVP ONE ×2 (11:15→12:00)
[2021-07-02] MEDS ORDERED: GABAPENTIN 100 MG CAPSULE PO ONE (11:15)
[2021-07-02] MEDS ORDERED: MORPHINE 2 MG/ML INJ. SYRINGE IVP ONE (12:00)
--- NOTE | 2021-07-02 12:00 | NUR ---
Pt refusing CT at this time. aware.
[2021-07-02] MEDS ORDERED: NEU100 PO (12:21)
--- NOTE | 2021-07-02 12:34 | NUR ---
IV medications given per md order.
[2021-07-02 13:23] VITALS: BP_SYST 140
--- NOTE | 2021-07-02 13:24 | NUR ---
Patient given written and verbal discharge instructions and verbalizes understanding. ER MD discussed with patient the results and treatment provided. Patient in stable condition. ID arm band removed. IV catheter removed intact and dressing applied, no active bleeding. Rx of Gabapentin and Ativan 1 mg given. Patient educated on pain management and to follow up with PMD. Pain Scale 0/10 . Opportunity for questions provided and answered. Medication side effect fact sheet provided.
== END 2021-07-02 13:24 | disposition home or self-care (01) ==
LOC: SED 08:10
DX: R10.31 Right lower quadrant pain (principal); F41.9 Anxiety disorder, unspecified; Z79.899 Other long term (current) drug therapy
CPT/HCPCS: 36415; 80053; 81003; 83690; 85025; 96361; 96374; 96375; 96376; 99284; J1200; J2060; J2270 ×2; J2405; J7030

== ENCOUNTER 2021-07-16 09:49 | Emergency (ER) | payer OTHER ==
[~2021-07-16] VITALS: Ht 157.5 cm; Wt 44.5 kg
--- NOTE | 2021-07-16 09:49 | NUR ---
BROUGHT IN BY [facility], PLACED IN BED #3 AND TRIAGED. REPORT GIVEN TO JIN
[2021-07-16 09:50] VITALS: BP_SYST 135
--- NOTE | 2021-07-16 10:15 | NUR ---
UP AMBULATING TO BATHROOM STEADY GAIT, NO DYSPNEA. SKIN WARM AND DRY
--- NOTE | 2021-07-16 10:35 | NUR ---
DR MACDONALD IN TO ASSESS
[2021-07-16] MEDS ORDERED: MORPHINE 4 MG INJ. 4 MG/ML VIAL IVP ONE (10:45)
[2021-07-16] MEDS ORDERED: LORazepam 2 MG/ML VIAL IVP ONE (10:45)
--- NOTE | 2021-07-16 10:56 | NUR ---
LABS, CXR COMPLETED
--- NOTE | 2021-07-16 11:10 | NUR ---
DECREASED ANXIETY OBSERVED, RESP UNLABOTRED, SKIN WARM AND DRY
[2021-07-16 11:16] LABS: BASOPHILS % (AUTO) 0.3 % (0.0-2.0); EOSINOPHILS # (AUTO) 0.1 K/uL (0.0-0.4); EOSINOPHILS % (AUTO) 1.8 % (0.0-4.0); HEMATOCRIT 32.2 % (36-48); HEMOGLOBIN 10.6 g/dL (12.0-16.0); LYMPHOCYTES # (AUTO) 1.2 K/uL (1.0-5.5); LYMPHOCYTES % (AUTO) 17.9 % (20.5-51.5); MEAN CORPUSCULAR HEMOGLOBIN 26 pg (27-31); MEAN CORPUSCULAR HGB CONC 33 % (32-36); MEAN CORPUSCULAR VOLUME 80 fL (79.0-98.0); MONOCYTES # (AUTO) 0.8 K/uL (0.0-1.0); MONOCYTES % (AUTO) 11.3 % (1.7-9.3); NEUTROPHILS # (AUTO) 4.7 K/uL (1.8-7.7); NEUTROPHILS % (AUTO) 68.7 % (40.0-70.0); PLATELET COUNT (AUTO) 274 K/uL (130-430); RED CELL DISTRIBUTION WIDTH 15.1 % (9.0-15.0); WHITE BLOOD COUNT (AUTO) 6.9 K/uL (4.8-10.8)
[2021-07-16 11:38] LABS: ANION GAP 9 (5-15); CALCIUM 8.5 mg/dL (8.4-11.0); CHLORIDE 96 mmol/L (98-107); CREATININE 0.65 mg/dL (0.55-1.30); GLUCOSE 90 mg/dL (70-99); POTASSIUM 3.9 mmol/L (3.5-5.1); SODIUM SERUM 130 mmol/L (136-145); UREA NITROGEN, BLOOD 6 mg/dL (8-21)
[2021-07-16 11:42] LABS: ALANINE AMINOTRANSFERASE 20 U/L (12-78); ALBUMIN 3.1 g/dL (3.4-4.8); ASPARTATE AMINOTRANSFERASE 20 U/L (10-37); LIPASE 81 U/L (73-393); TOTAL BILIRUBIN 0.3 mg/dL (0.0-1.0)
--- NOTE | 2021-07-16 12:13 | NUR ---
SITTING UP TALKING ON THE PHONE, CALM AND ALERT
[2021-07-16] MEDS ORDERED: ALPRAZolam 0.25 MG TABLET PO ONE (12:30)
--- NOTE | 2021-07-16 12:57 | NUR ---
UP AMBULATING STEADY TO BATHROOM, NO DISTRESS, CALM, AND ALERT
--- NOTE | 2021-07-16 13:00 | NUR ---
DR MCADONALD IN TO ASSESS
--- NOTE | 2021-07-16 13:21 | NUR ---
Patient given written and verbal discharge instructions and verbalizes understanding. ER MD discussed with patient the results and treatment provided. Patient in stable condition. ID arm band removed. IV catheter removed intact and dressing applied, no active bleeding. Patient educated on pain management and to follow up with PMD. Pain Scale 0/10 Opportunity for questions provided and answered. Medication side effect fact sheet provided.
[2021-07-16 13:22] VITALS: BP_SYST 112
== END 2021-07-16 13:21 | disposition home or self-care (01) ==
LOC: SED 09:49
DX: R10.84 Generalized abdominal pain (principal); F41.9 Anxiety disorder, unspecified; I10 Essential (primary) hypertension; J44.9 Chronic obstructive pulmonary disease, unspecified; F32.9 Major depressive disorder, single episode, unspecified; Z88.2 Allergy status to sulfonamides; Z88.5 Allergy status to narcotic agent; Z79.899 Other long term (current) drug therapy
CPT/HCPCS: 36415; 74018; 80053; 83690; 85025; 96374; 96375; 99284; J2060; J2270

== ENCOUNTER 2021-07-17 08:51 | Emergency (ER) | payer OTHER ==
[~2021-07-17] VITALS: Ht 157.5 cm; Wt 47.6 kg
[2021-07-17 08:51] VITALS: BP_SYST 118
[2021-07-17 09:11] LABS: BASOPHILS % (AUTO) 0.6 % (0.0-2.0); EOSINOPHILS # (AUTO) 0.2 K/uL (0.0-0.4); EOSINOPHILS % (AUTO) 2.4 % (0.0-4.0); HEMATOCRIT 35.6 % (36-48); HEMOGLOBIN 11.7 g/dL (12.0-16.0); LYMPHOCYTES # (AUTO) 1.2 K/uL (1.0-5.5); LYMPHOCYTES % (AUTO) 19.1 % (20.5-51.5); MEAN CORPUSCULAR HEMOGLOBIN 27 pg (27-31); MEAN CORPUSCULAR HGB CONC 33 % (32-36); MEAN CORPUSCULAR VOLUME 81 fL (79.0-98.0); MONOCYTES # (AUTO) 0.6 K/uL (0.0-1.0); MONOCYTES % (AUTO) 9.4 % (1.7-9.3); NEUTROPHILS # (AUTO) 4.3 K/uL (1.8-7.7); NEUTROPHILS % (AUTO) 68.5 % (40.0-70.0); PLATELET COUNT (AUTO) 276 K/uL (130-430); RED BLOOD CELL COUNT(AUTO) 4.38 MIL/uL (4.2-6.2); RED CELL DISTRIBUTION WIDTH 15.2 % (9.0-15.0); WHITE BLOOD COUNT (AUTO) 6.3 K/uL (4.8-10.8)
[2021-07-17] MEDS ORDERED: KETOROLAC TROMETHAMINE 60 MG/2 ML VIAL IM ONE (09:15)
[2021-07-17] MEDS ORDERED: LORazepam 2 MG/ML VIAL IM ONE (09:15)
[2021-07-17 09:44] LABS: ANION GAP 10 (5-15); CHLORIDE 99 mmol/L (98-107); CREATININE 0.76 mg/dL (0.55-1.30); GLUCOSE 92 mg/dL (70-99); SODIUM SERUM 135 mmol/L (136-145); UREA NITROGEN, BLOOD 5 mg/dL (8-21)
[2021-07-17 09:50] LABS: ALANINE AMINOTRANSFERASE 24 U/L (12-78); ALBUMIN 3.4 g/dL (3.4-4.8); ASPARTATE AMINOTRANSFERASE 21 U/L (10-37); LIPASE 69 U/L (73-393); TOTAL BILIRUBIN 0.2 mg/dL (0.0-1.0)
[2021-07-17 11:15] VITALS: BP_SYST 132
[2021-07-17] MEDS ORDERED: ALPRAZolam 0.25 MG TABLET PO ONE (11:30)
== END 2021-07-17 12:27 | disposition home or self-care (01) ==
LOC: SED 08:51
DX: G89.29 Other chronic pain (principal); R10.84 Generalized abdominal pain; F41.9 Anxiety disorder, unspecified; I10 Essential (primary) hypertension; J44.9 Chronic obstructive pulmonary disease, unspecified; F32.9 Major depressive disorder, single episode, unspecified; Z88.2 Allergy status to sulfonamides; Z88.5 Allergy status to narcotic agent; Z79.899 Other long term (current) drug therapy
CPT/HCPCS: 36415; 74176; 76376; 80053; 81002; 83690; 85025; 96372; 99284; J1885; J2060

== ENCOUNTER 2022-11-04 17:16 | Inpatient (IN) | payer OTHER ==
[~2022-11-04] VITALS: Ht 157.5 cm; Wt 46.3 kg
[2022-11-04] MEDS: NACL 0.9% 1,000 ML IV SCH (12:32)
[2022-11-04 17:16] VITALS: BP_SYST 130
--- NOTE | 2022-11-04 17:16 | NUR ---
BROUGHT BACK TO BED #1 AND TRIAGED. REPORT GIVEN TO LINDA
--- NOTE | 2022-11-04 17:21 | NUR ---
Pt placed in bed 1 at this time.
--- NOTE | 2022-11-04 17:30 | NUR ---
Pt's son reports that his mother has a history of suicidal attempts. "She has tried to kill herself at least 6 times. I brought her here because she threatened to kill herself after her MRI today. She got an MRI because she has been having stomach pains. The MRI came back clear and she said she was going to kill herself."
--- NOTE | 2022-11-04 18:09 | NUR ---
Pt's son is going to picker tender helper food and will be right back.
--- NOTE | 2022-11-04 18:20 | NUR ---
Emergency Contact Bryan Gardner (Son) [phone].
[2022-11-04] MEDS ORDERED: HYDROcodone/ACETAMIN 5-325 MG TAB (NORCO/ VICODIN) PO ONE (19:15)
[2022-11-04 19:20] LABS: BASOPHILS % (AUTO) 0.3 % (0.0-2.0); EOSINOPHILS % (AUTO) 0.1 % (0.0-4.0); HEMATOCRIT 36.4 % (36-48); LYMPHOCYTES % (AUTO) 11.2 % (20.5-51.5); MEAN CORPUSCULAR HEMOGLOBIN 26 pg (27-31); MEAN CORPUSCULAR HGB CONC 33 % (32-36); MEAN CORPUSCULAR VOLUME 80 fL (79.0-98.0); MONOCYTES # (AUTO) 0.5 K/uL (0.0-1.0); MONOCYTES % (AUTO) 5.7 % (1.7-9.3); NEUTROPHILS # (AUTO) 7.1 K/uL (1.8-7.7); NEUTROPHILS % (AUTO) 82.7 % (40.0-70.0); PLATELET COUNT (AUTO) 279 K/uL (130-430); RED BLOOD CELL COUNT(AUTO) 4.55 MIL/uL (4.2-6.2); RED CELL DISTRIBUTION WIDTH 17.5 % (9.0-15.0); WHITE BLOOD COUNT (AUTO) 8.6 K/uL (4.8-10.8)
[2022-11-04 19:37] LABS: ANION GAP 12 (5-15); CALCIUM 8.4 mg/dL (8.4-11.0); CHLORIDE 91 mmol/L (98-107); CREATININE 0.87 mg/dL (0.55-1.30); GLUCOSE 109 mg/dL (70-99); UREA NITROGEN, BLOOD 6 mg/dL (8-21)
[2022-11-04 19:44] LABS: ALANINE AMINOTRANSFERASE 28 U/L (12-78); ALBUMIN 2.9 g/dL (3.4-4.8); ASPARTATE AMINOTRANSFERASE 45 U/L (10-37); TOTAL BILIRUBIN 0.5 mg/dL (0.0-1.0)
[2022-11-04] MEDS ORDERED: SER100 PO (19:49)
[2022-11-04] MEDS ORDERED: HYDR-3927 PO (19:49)
[2022-11-04] MEDS ORDERED: LORA-258 PO (19:49)
[2022-11-04] MEDS ORDERED: GABA-529 PO (19:49)
[2022-11-04] MEDS ORDERED: HYOS-7 PO (19:49)
[2022-11-04] MEDS ORDERED: ESCI10TA PO (19:49)
[2022-11-04] MEDS ORDERED: TEMA15CA5 PO (19:49)
[2022-11-04] MEDS ORDERED: DICY10CA13 PO (19:49)
[2022-11-04] MEDS ORDERED: [UNRECOGNIZED DRUG - CODE] (19:49)
[2022-11-04] MEDS ORDERED: TRAZ300T11 PO (19:49)
[2022-11-04 19:56] LABS: ACETAMINOPHEN < 1 ug/mL (1-30); ALCOHOL, BLOOD < 3 mg/dL (<10)
--- NOTE | 2022-11-04 20:07 | NUR ---
ACCEPTED CARE, PATIENT AWAKE IN BED C/O RIGHT GROIN PAIN X 6 MONTHS. PATIENT HAS BEEN UPDATED ON PLAN OF CARE, AWARE OF NEED FOR URINE. ASSISTED INTO POSITION OF COMFORT AT THIS TIME. SON HAS RETURNED TO BEDSIDE AND MADE AWARE OF PLAN OF CARE, LAB HAS BEEN AT BEDSIDE AND BEDSIDE EKG HAS BEEN DONE FOR MD REVIEW. NO S/S OF ANY DISTRESS NOTED AT THIS TIME.PATIENT HAS RIGHT ILEOSTOMY INTACT. PATIENT HAS BEEN MEDICATED FOR PAIN PER ORDER.
[2022-11-04] MEDS ORDERED: NACL 0.9% 1,000 ML IV ONE (20:15)
[2022-11-04] MEDS ORDERED: AZITHROMYCIN 500 MG in NS 250 ML IV ONE (20:15)
[2022-11-04] MEDS ORDERED: cefTRIAXone 1 GM in D5W 50 ML IV ONE (20:15)
[2022-11-04] MEDS ORDERED: KCL 20 mEq in 100 mL (PREMIX) 100 ML IV ONE (21:15)
--- NOTE | 2022-11-04 21:44 | NUR ---
Admit bed requested Patient will be admitted to care of . Admitted to MED SURG unit. Diagnosis PNA Inpatient (Yes or No) YES Observation (Yes or No) NO Orientation concerns or request close to nursing station (Yes or No) NO Covid Status PENDING On vent or bipap NO Isolation requirements NO Needs a sitter NO From Home (Yes or if No enter name of facility) YES Requires Dialysis (Yes or No) NO Med Rec Completed (Yes of No) PENDING
--- NOTE | 2022-11-04 21:45 | NUR ---
SPECIMEN collected from bilateral nares. Pt tolerates well sent to lab for Covid and MRSA.
--- NOTE | 2022-11-04 21:54 | NUR ---
CONTINUES TO REST AWARE WILL BE ADMITTED TO THE HOSPITAL. #24G ESTABLISHED IN LEFT HAND IVF INFUSING PER ORDER. AWAITING FLUIDS TO INFUSE TO COLLECT URINE SPECIMEN. ASSISTED INTO POSITION OF COMFORT.
[2022-11-04] MEDS ORDERED: AZITHROMYCIN 500 MG/VIAL (ZITHROMAX) IV ONE ×2 (22:49→22:53)
[2022-11-04] MEDS ORDERED: cefTRIAXone 1 GM IVPB PREMIX 50 ML IV ONE (22:52)
--- NOTE | 2022-11-04 23:05 | NUR ---
COMPLETE BED CHANGE DONE AT THIS TIME. CATH FOR URINE AND SENT TO LAB, COLOSTOMY EMPTIED AT THIS TIME.
--- NOTE | 2022-11-04 23:14 | NUR ---
REPORT GIVEN TO STUART, PATIENT REMAINS STABLE FOR TRANSPORT.
[2022-11-05 00:09] LABS: BILIRUBIN,URINE NEGATIVE (NEGATIVE); BLOOD, URINE NEGATIVE (NEGATIVE); COLOR,URINE YELLOW (YELLOW); GLUCOSE,URINE NEGATIVE (NEGATIVE); KETONES,URINE NEGATIVE (NEGATIVE); LEUKOCYTE ESTERASE ,URINE 1+ (NEGATIVE); NITRITE, URINE NEGATIVE (NEGATIVE); PH,URINE 6.5 (5.0-8.0); PROTEIN URINE NEGATIVE (NEGATIVE); UROBILINOGEN,URINE 0.2 (0.2-1.0)
[2022-11-05 00:20] VITALS: BP_SYST 140
[2022-11-05 00:24] LABS: CLARITY/URINE HAZY (CLEAR)
[2022-11-05 00:32] LABS: RBC,URINE 0-3 /HPF (0-3); WBC,URINE 20-50 /HPF (0-3)
[2022-11-05 00:33] LABS: BACTERIA,URINE FEW /HPF (None Seen)
[2022-11-05 00:35] VITALS: BP_SYST 142
[2022-11-05 00:42] LABS: BENZODIAZEPINE, URINE POSITIVE (NEG <=150); OPIATE, URINE POSITIVE (NEG <=100); UR TRICYCLIC ANTIDEPRESSANTS POSITIVE (NEG <=300)
[2022-11-05 00:43] LABS: BARBITURATE, URINE NEGATIVE (NEG <=200); CANNABINOID, URINE NEGATIVE (NEG <=50); COCAINE, URINE NEGATIVE (NEG <=150); METHAMPHETAMINES SCREEN,URINE NEGATIVE (NEG <=500); PHENCYCLIDINE SCREEN,URINE NEGATIVE (NEG <=25); URINE AMPHETAMINE NEGATIVE (NEG <=500); URINE METHADONE NEGATIVE (NEG <=200); URINE OXYCODONE SCREEN NEGATIVE (NEG <=100); URINE PROPOXYPHENE SCREEN NEGATIVE (NEG <=300)
[2022-11-05] MEDS: HYDROcodone/ACETAMIN 5-325 MG TAB (NORCO/ VICODIN) PO PRN (03:08)
[2022-11-05 06:49] LABS: BASOPHILS % (AUTO) 0.4 % (0.0-2.0); EOSINOPHILS % (AUTO) 0.2 % (0.0-4.0); HEMATOCRIT 32.5 % (36-48); HEMOGLOBIN 10.7 g/dL (12.0-16.0); LYMPHOCYTES # (AUTO) 1.8 K/uL (1.0-5.5); LYMPHOCYTES % (AUTO) 28.5 % (20.5-51.5); MEAN CORPUSCULAR HEMOGLOBIN 26 pg (27-31); MEAN CORPUSCULAR HGB CONC 33 % (32-36); MEAN CORPUSCULAR VOLUME 80 fL (79.0-98.0); MONOCYTES # (AUTO) 0.8 K/uL (0.0-1.0); MONOCYTES % (AUTO) 12.9 % (1.7-9.3); NEUTROPHILS # (AUTO) 3.6 K/uL (1.8-7.7); PLATELET COUNT (AUTO) 269 K/uL (130-430); RED BLOOD CELL COUNT(AUTO) 4.07 MIL/uL (4.2-6.2); RED CELL DISTRIBUTION WIDTH 17.7 % (9.0-15.0); WHITE BLOOD COUNT (AUTO) 6.2 K/uL (4.8-10.8)
[2022-11-05 06:51] LABS: ANION GAP 10 (5-15); CALCIUM 7.9 mg/dL (8.4-11.0); CHLORIDE 94 mmol/L (98-107); CREATININE 0.55 mg/dL (0.55-1.30); GLUCOSE 101 mg/dL (70-99); UREA NITROGEN, BLOOD 6 mg/dL (8-21)
[2022-11-05 08:55] VITALS: BP_SYST 125
--- NOTE | 2022-11-05 09:15 | NUR ---
Patient stable; resting comfortably in bed with no distress noted.
--- NOTE | 2022-11-05 11:30 | NUR ---
Patient stable with Dr. Clement at bedside.
[2022-11-05 11:46] VITALS: BP_SYST 152
[2022-11-05] MEDS ORDERED: POTASSIUM CHLORIDE 20 MEQ TAB.PRT.SR PO ONE (12:30)
--- NOTE | 2022-11-05 13:17 | NUR ---
Scheduled medication given per order. Patient stable at this time. Addendum: 11/05/22 at 1318 by Wendy Milton RN Urinated in bedpan.
[2022-11-05] MEDS ORDERED: MELATONIN 3 MG TABLET PO PRN (13:45)
[2022-11-05] MEDS ORDERED: NALOXONE HCL 0.4 MG/ML AMP (NARCAN) IVP PRN (13:45)
[2022-11-05] MEDS ORDERED: ESCITALOPRAM OXALATE 10 MG TABLET PO SCH (13:45)
[2022-11-05] MEDS ORDERED: GABAPENTIN 100 MG CAPSULE PO ONE (14:15)
[2022-11-05] MEDS ORDERED: QUEtiapine FUMARATE 100 MG TABLET PO ONE (14:15)
[2022-11-05] MEDS ORDERED: CITALOPRAM HYDROBROMIDE 20 MG TABLET PO ONE (14:15)
--- NOTE | 2022-11-05 14:15 | NUR ---
COCOA MILL OPERATOR ACSW Jane responded to a request for Social Service support from Med Surg staff due to patient expressing severe anxiousness. ACSW Jane met with patient at bedside. ACSW completed introductions, provided business card, reason for referral and patient was open to contact, she stated "Oh good because I'm losing it". Speech- fast Mood- Anxious, depressed, Affect- broad Patient was observed to be anxious. She was alert and oriented to place and somewhat to reason for admission, but unable to recall date how she arrived to hospital, residence nor . SI/HI- Patient denied wanting to kill herself or harm herself. She did express "I'm so depressed, I just don't want to feel like this anymore". Review of patient notes from ED depict son's disclosure of patient having 6 suicide attempts with alleged current attempt of Ativan overdose. Mental Health- Patient states being treated in the past for anxiety, denies additional diagnosis. Review of notes from ED depict son's disclosure of patient history of Schizophrenia SOCIAL- Patient states she resides alone, and has 2 sons, Bryan or and Gigi . ACSW attempted to discuss contacting sons to which she stated no. Review of ED notes depict patient resides with son Bryan and he transported patient to ED. Patient states sons help her get to doctor appointments and support with food and other needs. Due to patient experiencing anxiety, ACSW made several attempts to utilize grounding exercises and coping skills/tools patient shared worked previously to slow breathing and decrease anxiety, but patient did not want to participate. ACSW attempted to utilize elements of CBT and Solution Focused therapy to address current anxiety but patient became nauseous with increasing anxiety. ACSW consulted with assigned RN Wendy who shared patient would not be getting Ativan due to previous overdose. RECOMMENDATIONS- Due to son's disclosure of previous suicide attempts, alleged mental health diagnosis, and patient's observed anxiety and disclosure of feeling depressed, ACSW requested Telepsych consult for further Mental Health assessment. Prison Librarian will continue to be available as needed
[2022-11-05] MEDS: PIPERACILLIN/TAZO 3.375/DEX-IS 50 ML IV SCH ×2 (14:47→22:33)
--- NOTE | 2022-11-05 14:47 | NUR ---
Scheduled IV abx and po medications given per order. Patient stable with PARAMJIT Brady at bedside.
--- NOTE | 2022-11-05 16:20 | NUR ---
Patient stable; resting quietly in bed with no distress noted.
[2022-11-05 17:18] VITALS: BP_SYST 137
--- NOTE | 2022-11-05 18:09 | NUR ---
Patient eating dinner at this time. Patient stable throughout shift.
[2022-11-05 20:00] VITALS: BP_SYST 154
--- NOTE | 2022-11-05 20:34 | NUR ---
RECEIVED PT LYING IN BED. ASSISTED PT ONTO BED JUDD. EMPTIED ILEOSTOMY 150ML GREEN LIQUID DRAINAGE. IV SITE TO LT HAND SITE CDI. Addendum: 11/05/22 at 2216 by [facility], KAREN JONES ILEOSTOMY WAS EMPTIED , HOWEVER PT STATES IT JUST CAME OFF. CLEANED PT AND REAPPLIED A NEW ILEOSTOMY BAG. STOMA PINK, RAISED ABOVE SKIN AND MOIST.
[2022-11-05] MEDS: traZODone HCL 50 MG TABLET (DESYREL) PO SCH (22:32)
[2022-11-05] MEDS: QUEtiapine FUMARATE 100 MG TABLET PO SCH (22:32)
[2022-11-05] MEDS: NACL 0.9% 1,000 ML IV SCH (22:35)
[2022-11-06 00:10] VITALS: BP_SYST 144
[2022-11-06] MEDS: PIPERACILLIN/TAZO 3.375/DEX-IS 50 ML IV SCH ×4 (03:14→22:07)
[2022-11-06] MEDS: HYDROcodone/ACETAMIN 10-325 MG TAB PO PRN (05:47)
[2022-11-06 08:00] VITALS: BP_SYST 144
[2022-11-06] MEDS: QUEtiapine FUMARATE 100 MG TABLET PO SCH ×2 (08:29→22:06)
[2022-11-06] MEDS: GABAPENTIN 100 MG CAPSULE PO SCH (08:29)
[2022-11-06] MEDS: DICYCLOMINE HCL 10 MG CAPSULE PO SCH (08:30)
[2022-11-06] MEDS: CITALOPRAM HYDROBROMIDE 20 MG TABLET PO SCH (08:30)
[2022-11-06] MEDS: NACL 0.9% 1,000 ML IV SCH (08:36)
[2022-11-06 10:22] LABS: CREATININE 0.48 mg/dL (0.55-1.30); GLUCOSE 96 mg/dL (70-99); UREA NITROGEN, BLOOD 4 mg/dL (8-21)
[2022-11-06 11:03] LABS: ANION GAP 12 (5-15); CHLORIDE 96 mmol/L (98-107)
[2022-11-06 11:31] VITALS: BP_SYST 138
--- NOTE | 2022-11-06 11:37 | NUR ---
TELEPSCYH/PROFESSOR OF ENVIRONMENTAL STUDIES ACSW Jane consulted with Dr. Clement and assigned COMMUNITY ASSOCIATION MANAGER Maral to request and place Telepsych consult order
--- NOTE | 2022-11-06 11:38 | NUR ---
CONSULTATION PAGED REASON FOR CONSULTATION:PER LAWN MAINTENANCE WORKER WAS CONSULT CALLED?Y PERSON WHO WAS NOTIFIED:CARLITA CONSULTING PHYSICIAN:ANGELLA DENIS EM PHYSICIAN SPECIALTY:PSYCHE EM PHYSICIAN PHONE NUMBER:[phone] REQUESTING PHYSICIAN:IVETT GAN
[2022-11-06 11:44] LABS: BASOPHILS % (AUTO) 0.2 % (0.0-2.0); HEMATOCRIT 33.6 % (36-48); HEMOGLOBIN 10.9 g/dL (12.0-16.0); LYMPHOCYTES # (AUTO) 1.6 K/uL (1.0-5.5); LYMPHOCYTES % (AUTO) 31.2 % (20.5-51.5); MEAN CORPUSCULAR HEMOGLOBIN 26 pg (27-31); MEAN CORPUSCULAR HGB CONC 32 % (32-36); MEAN CORPUSCULAR VOLUME 80 fL (79.0-98.0); MONOCYTES # (AUTO) 0.8 K/uL (0.0-1.0); MONOCYTES % (AUTO) 16.4 % (1.7-9.3); NEUTROPHILS # (AUTO) 2.6 K/uL (1.8-7.7); NEUTROPHILS % (AUTO) 52.2 % (40.0-70.0); PLATELET COUNT (AUTO) 239 K/uL (130-430); RED BLOOD CELL COUNT(AUTO) 4.19 MIL/uL (4.2-6.2); RED CELL DISTRIBUTION WIDTH 17.7 % (9.0-15.0)
[2022-11-06] MEDS ORDERED: QUEtiapine FUMARATE 25 MG TABLET PO SCH (11:45)
[2022-11-06] MEDS ORDERED: POTASSIUM CHLORIDE 40 MEQ in NS 250 ML IV ONE (12:00)
--- NOTE | 2022-11-06 12:26 | NUR ---
CONSULTATION PAGED REASON FOR CONSULTATION:PNEUMONIA WAS CONSULT CALLED?Y PERSON WHO WAS NOTIFIED:PETER CONSULTING PHYSICIAN:JAQUELINE ARIAS SYSTEM SUPPORT TECHNICIAN SPECIALTY:INFECTIOUS DISEASE SYSTEM SUPPORT TECHNICIAN PHONE NUMBER:[phone] REQUESTING PHYSICIAN:IVETT GAN
[2022-11-06] MEDS: AZITHROMYCIN 250 MG in NS 250 ML IV SCH (14:44)
[2022-11-06 17:01] VITALS: BP_SYST 148
[2022-11-06 20:25] VITALS: BP_SYST 143
[2022-11-06] MEDS: traZODone HCL 50 MG TABLET (DESYREL) PO SCH (22:06)
[2022-11-07 00:40] VITALS: BP_SYST 121
[2022-11-07] MEDS: PIPERACILLIN/TAZO 3.375/DEX-IS 50 ML IV SCH ×2 (02:00→08:25)
--- NOTE | 2022-11-07 07:30 | NUR ---
RN OPENING NOTE REPORT WAS ENDORSED BY NIGHT NURSE. PATIENT IS AWAKE AND ALERT NO OTHER NEEDS AT THIS TIME. EDUCATED TO USE CALL LIGHT FOR ASSISTANCE. CALL LIGHT IS WITH PATIENT. PATIENT IS CLOSE TO NURSES STATION.
[2022-11-07 08:00] VITALS: BP_SYST 156
[2022-11-07 08:05] LABS: BASOPHILS % (AUTO) 0.2 % (0.0-2.0); EOSINOPHILS % (AUTO) 0.4 % (0.0-4.0); HEMATOCRIT 33.5 % (36-48); HEMOGLOBIN 10.8 g/dL (12.0-16.0); LYMPHOCYTES # (AUTO) 1.9 K/uL (1.0-5.5); LYMPHOCYTES % (AUTO) 29.8 % (20.5-51.5); MEAN CORPUSCULAR HEMOGLOBIN 26 pg (27-31); MEAN CORPUSCULAR HGB CONC 32 % (32-36); MEAN CORPUSCULAR VOLUME 81 fL (79.0-98.0); MONOCYTES # (AUTO) 0.8 K/uL (0.0-1.0); MONOCYTES % (AUTO) 12.4 % (1.7-9.3); NEUTROPHILS # (AUTO) 3.8 K/uL (1.8-7.7); NEUTROPHILS % (AUTO) 57.2 % (40.0-70.0); PLATELET COUNT (AUTO) 233 K/uL (130-430); RED BLOOD CELL COUNT(AUTO) 4.16 MIL/uL (4.2-6.2); RED CELL DISTRIBUTION WIDTH 17.5 % (9.0-15.0); WHITE BLOOD COUNT (AUTO) 6.6 K/uL (4.8-10.8)
[2022-11-07] MEDS: GABAPENTIN 100 MG CAPSULE PO SCH (08:24)
[2022-11-07] MEDS: HYDROcodone/ACETAMIN 10-325 MG TAB PO PRN (08:24)
[2022-11-07] MEDS: CITALOPRAM HYDROBROMIDE 20 MG TABLET PO SCH (08:24)
[2022-11-07] MEDS: QUEtiapine FUMARATE 100 MG TABLET PO SCH ×2 (08:24→20:57)
[2022-11-07] MEDS: DICYCLOMINE HCL 10 MG CAPSULE PO SCH (08:24)
[2022-11-07 08:25] LABS: ANION GAP 10 (5-15); C-REACTIVE PROTEIN QUANT 3.6 mg/dL (0-0.5); CALCIUM 8.1 mg/dL (8.4-11.0); CHLORIDE 99 mmol/L (98-107); CREATININE 0.63 mg/dL (0.55-1.30); GLUCOSE 91 mg/dL (70-99); UREA NITROGEN, BLOOD 3 mg/dL (8-21)
--- NOTE | 2022-11-07 08:37 | NUR ---
MEDICATION PATIENTS SCHEDULED MEDICATION GIVEN PER ORDER. PATIENT IS AWAKE AND ALERT SITTING UP IN BED. OSTOMY BAG EMPTIED. PATIENT COMPLAINS OF PAIN MEDICATED PER ORDER. PATIENT PROVIDED WITH WARM BLANKET REQUESTED. PATIENT EDUCATED TICKET MANAGER LIGHT FOR ASSISTANCE. CALL LIGHT IS WITH HER. PATIENT IS CLOSE TO NURSES STATION. NO OTHER NEEDS AT THIS TIME.
--- NOTE | 2022-11-07 09:41 | NUR ---
Dietitian recommendations: 1. Continue soft/bland/low fiber diet. 2. Suggest daily multivitamin with minerals for micronutrient coverage. 3. Ensure Plus BID as tolerated and per patient preference. Please refer to nutrition assessment for details. PS RD
--- NOTE | 2022-11-07 11:05 | NUR ---
DR. GANNON PATIENT PROVIDED WITH INCONTINENCE CARE. SPOKE WITH MD AND RECEIVED ORDERS FOR SCD'S. PATIENT HAS NO OTHER NEEDS AT THIS TIME. CALL LIGHT IS WITH HER EDUCATED TO USES FOR ASSISTANCE.
[2022-11-07 11:40] LABS: ERYTHROCYTE SEDIMENTATION RATE 38 MM/HR (0-20)
[2022-11-07 11:59] VITALS: BP_SYST 142
[2022-11-07] MEDS: cefTRIAXone 1 GM in D5W 50 ML IV SCH (14:37)
[2022-11-07] MEDS: AZITHROMYCIN 250 MG in NS 250 ML IV SCH (15:58)
[2022-11-07] MEDS: HYDROcodone/ACETAMIN 5-325 MG TAB (NORCO/ VICODIN) PO PRN (16:10)
--- NOTE | 2022-11-07 16:11 | NUR ---
MEDICATION/ PAIN MEDICATION PATIENTS SCHEDULED MEDICATION GIVEN PER ORDER. PATIENT COMPLAINTS OF PAIN MEDICATED PER ORDER. PATIENT EDUCATED COOK AT SCHOOL LIGHT CALL LIGHT IS WITH HER. NO OTHER NEEDS AT THIS TIME.
[2022-11-07 16:28] VITALS: BP_SYST 150
--- NOTE | 2022-11-07 19:21 | NUR ---
RN CLOSING NOTE REPORT WAS ENDORSED TO NIGHT NURSE. PATIENT IS AWAKE AND ALERT SITTING UP IN BED, NO COMPLAINTS AT THIS TIME. CALL LIGHT IS WITH PATIENT. EDUCATED TO USE CALL LIGHT FOR PATIENT. PATIENT EDUCATED ON STEVE PATIENT VERBALIZED UNDERSTANDING. PATIENT IS CLOSE TO NURSES STATION.
[2022-11-07] MEDS: NACL 0.9% 1,000 ML IV SCH (19:27)
[2022-11-07 20:33] VITALS: BP_SYST 151
[2022-11-07] MEDS: traZODone HCL 50 MG TABLET (DESYREL) PO SCH (20:57)
[2022-11-08] MEDS: HYDROcodone/ACETAMIN 10-325 MG TAB PO PRN ×2 (05:38→17:11)
--- NOTE | 2022-11-08 06:17 | NUR ---
Pt. with periods of screaming, vss, needs met prn, purewick in place. Pt. given norco 10/325mg po as ordered for pain. Call light in reach, will monitor. Addendum: 11/08/22 at 0623 by [facility], KAREN JONES Colostomy care done, pt. tolerated well. Purewick in place and draining urine into suction canister.
[2022-11-08 08:17] VITALS: BP_SYST 147
--- NOTE | 2022-11-08 08:17 | NUR ---
INITIAL ROUNDS Received pt AAOx3, very anxious, no s/s resp distress, c/o low abd pain/groin area on left side-will check on pain medications. Plan of care for the day reviewed with pt-pt too focused on her pain to listen-will reinforce all teachings. IVF infusing well at ordered rate with no s/s infiltration to site. Perwick in place. Side rails up x3, bed alarm on and room across from nursing station for safety. Call light within reach.
[2022-11-08] MEDS: QUEtiapine FUMARATE 100 MG TABLET PO SCH ×2 (08:50→20:48)
[2022-11-08] MEDS: DICYCLOMINE HCL 10 MG CAPSULE PO SCH (08:50)
[2022-11-08] MEDS: HYDROcodone/ACETAMIN 5-325 MG TAB (NORCO/ VICODIN) PO PRN ×2 (08:53→14:42)
[2022-11-08] MEDS: CITALOPRAM HYDROBROMIDE 20 MG TABLET PO SCH (08:54)
[2022-11-08] MEDS: GABAPENTIN 100 MG CAPSULE PO SCH (08:54)
[2022-11-08 11:26] VITALS: BP_SYST 140
[2022-11-08] MEDS: cefTRIAXone 1 GM in D5W 50 ML IV SCH (11:35)
[2022-11-08] MEDS: AZITHROMYCIN 250 MG in NS 250 ML IV SCH (15:15)
[2022-11-08 16:04] VITALS: BP_SYST 154
--- NOTE | 2022-11-08 19:43 | NUR ---
CLOSING NOTE Pt remains anxious, confused and demanding. Pt climbed out of bed at change of shift, pt assisted back into bed and made comfortable, perwick placed again. Pt flat out refusing to have an IV placed for her IVF, pt yelling at staff "no, no IV tonight". Endorsed care to weight shifter nurse. Skin and safety precautions remain in place. call light within reach.
[2022-11-08 20:00] VITALS: BP_SYST 159
[2022-11-08] MEDS: traZODone HCL 50 MG TABLET (DESYREL) PO SCH (20:48)
--- NOTE | 2022-11-08 21:00 | NUR ---
Patient restless and attempted to get out of bed. Continues to refuse new IV access but is eating and drinking. Exit alarm on, bed low and locked.
[2022-11-08] MEDS: NACL 0.9% 1,000 ML IV SCH (21:45)
[2022-11-09 00:45] VITALS: BP_SYST 151
--- NOTE | 2022-11-09 02:00 | NUR ---
Dr. Otilio Barnhart was present on unit and was informed that patient removed her IV earlier and has continued to refuse new access. Dr. Barnhart gave order for midline placement. Dr. Barnhart also made aware that patient's BP has been elevated with SBP in 140s-high 150s with no blood pressure medications in home med list or current medications.
--- NOTE | 2022-11-09 06:13 | NUR ---
Patient resting in bed, unlabored breathing on room air. Used bedpan, also incontinent at times. Incontinence care provided. Safety precautions in place.
[2022-11-09 06:57] LABS: BASOPHILS % (AUTO) 0.4 % (0.0-2.0); EOSINOPHILS # (AUTO) 0.1 K/uL (0.0-0.4); EOSINOPHILS % (AUTO) 1.3 % (0.0-4.0); HEMATOCRIT 31.4 % (36-48); HEMOGLOBIN 10.4 g/dL (12.0-16.0); LYMPHOCYTES # (AUTO) 1.6 K/uL (1.0-5.5); LYMPHOCYTES % (AUTO) 33.7 % (20.5-51.5); MEAN CORPUSCULAR HEMOGLOBIN 27 pg (27-31); MEAN CORPUSCULAR HGB CONC 33 % (32-36); MEAN CORPUSCULAR VOLUME 81 fL (79.0-98.0); MONOCYTES # (AUTO) 0.5 K/uL (0.0-1.0); MONOCYTES % (AUTO) 10.5 % (1.7-9.3); NEUTROPHILS # (AUTO) 2.6 K/uL (1.8-7.7); NEUTROPHILS % (AUTO) 54.1 % (40.0-70.0); PLATELET COUNT (AUTO) 270 K/uL (130-430); RED CELL DISTRIBUTION WIDTH 17.2 % (9.0-15.0); WHITE BLOOD COUNT (AUTO) 4.8 K/uL (4.8-10.8)
--- NOTE | 2022-11-09 07:20 | NUR ---
OPENING NOTE Received report from KAREN Gallegos. Upon entering room, patient is asleep. No s/s of pain at this time. Call light within reach. Safety precautions observed. No IV noted at this time.
[2022-11-09 08:00] VITALS: BP_SYST 157
[2022-11-09 08:16] LABS: ERYTHROCYTE SEDIMENTATION RATE 34 MM/HR (0-20)
[2022-11-09 08:18] LABS: ALANINE AMINOTRANSFERASE 30 U/L (12-78); ALBUMIN 2.2 g/dL (3.4-4.8); ANION GAP 10 (5-15); ASPARTATE AMINOTRANSFERASE 38 U/L (10-37); C-REACTIVE PROTEIN QUANT 2.7 mg/dL (0-0.5); CALCIUM 8.4 mg/dL (8.4-11.0); CHLORIDE 101 mmol/L (98-107); CREATININE 0.42 mg/dL (0.55-1.30); GLUCOSE 93 mg/dL (70-99); TOTAL BILIRUBIN 0.4 mg/dL (0.0-1.0); UREA NITROGEN, BLOOD 3 mg/dL (8-21)
[2022-11-09] MEDS: DICYCLOMINE HCL 10 MG CAPSULE PO SCH (08:50)
[2022-11-09] MEDS: QUEtiapine FUMARATE 100 MG TABLET PO SCH ×2 (08:50→20:36)
[2022-11-09] MEDS: GABAPENTIN 100 MG CAPSULE PO SCH (08:50)
[2022-11-09] MEDS: HYDROCHLOROTHIAZIDE 25 MG TABLET (HCTZ) PO SCH (08:51)
[2022-11-09] MEDS: CITALOPRAM HYDROBROMIDE 20 MG TABLET PO SCH (08:51)
[2022-11-09] MEDS: HYDROcodone/ACETAMIN 10-325 MG TAB PO PRN (08:59)
--- NOTE | 2022-11-09 09:00 | NUR ---
REFUSING IV Patient refusing IV at this time. She was educated on the consequences of being without an IV. She is also very confused at this time.
--- NOTE | 2022-11-09 09:33 | NUR ---
Patient refused treatment. She is very confused. Discussed with RN.
[2022-11-09] MEDS: cefTRIAXone 1 GM in D5W 50 ML IV SCH (11:15)
[2022-11-09 11:31] VITALS: BP_SYST 133
[2022-11-09] MEDS: AZITHROMYCIN 250 MG in NS 250 ML IV SCH (14:30)
--- NOTE | 2022-11-09 14:30 | NUR ---
MIDLINE CONSENT SIGNED Patient agrees to have midline placed. Consent signed at this time.
[2022-11-09] MEDS: HYDROcodone/ACETAMIN 5-325 MG TAB (NORCO/ VICODIN) PO PRN (14:36)
[2022-11-09 15:36] VITALS: BP_SYST 143
[2022-11-09 17:15] LABS: INR 1.2 (0.8-1.2); PROTHROMBIN TIME 11.8 SECS (9.5-12.5)
--- NOTE | 2022-11-09 17:49 | NUR ---
RN ROUNDS Patient is confused at this time. She reports pain but will not rate it. No pain medications are due at this time.
--- NOTE | 2022-11-09 18:52 | NUR ---
CLOSING NOTE Patient sitting in bed eating dinner. She is very anxious, restless, and confused at this time. She says that she has pain but was educated that no pain medication is due at this time. Will endorse to oncoming RN.
[2022-11-09 20:35] VITALS: BP_SYST 148
[2022-11-09] MEDS: traZODone HCL 50 MG TABLET (DESYREL) PO SCH (20:36)
[2022-11-09] MEDS: NACL 0.9% 1,000 ML IV SCH (21:45)
[2022-11-10] MEDS ORDERED: POTASSIUM CHLORIDE 20 MEQ TAB.PRT.SR PO ONE
--- NOTE | 2022-11-10 | NUR ---
Notified Dr. Barnhart of patient's K of 3.0. Received order for 40 mEq KCl x1.
[2022-11-10 01:09] VITALS: BP_SYST 148
[2022-11-10] MEDS: HYDROcodone/ACETAMIN 5-325 MG TAB (NORCO/ VICODIN) PO PRN ×2 (04:51→12:53)
--- NOTE | 2022-11-10 07:15 | NUR ---
OPENING NOTE Received report from KAREN Gallegos. Upon entering room, patient is awake and complaining of pain at this time. She is also very anxious and confused. PICC site is intact at this time. Will monitor and address pain throughout shift. Call light within reach. Safety precautions observed.
[2022-11-10 07:18] LABS: ANION GAP 14 (5-15); C-REACTIVE PROTEIN QUANT 2.3 mg/dL (0-0.5); CALCIUM 8.6 mg/dL (8.4-11.0); CHLORIDE 95 mmol/L (98-107); CREATININE 0.62 mg/dL (0.55-1.30); GLUCOSE 100 mg/dL (70-99); UREA NITROGEN, BLOOD 4 mg/dL (8-21)
[2022-11-10 07:34] LABS: BASOPHILS % (AUTO) 0.3 % (0.0-2.0); EOSINOPHILS # (AUTO) 0.2 K/uL (0.0-0.4); EOSINOPHILS % (AUTO) 2.2 % (0.0-4.0); HEMATOCRIT 33.8 % (36-48); HEMOGLOBIN 10.9 g/dL (12.0-16.0); LYMPHOCYTES # (AUTO) 2.7 K/uL (1.0-5.5); LYMPHOCYTES % (AUTO) 36.7 % (20.5-51.5); MEAN CORPUSCULAR HEMOGLOBIN 26 pg (27-31); MEAN CORPUSCULAR HGB CONC 32 % (32-36); MEAN CORPUSCULAR VOLUME 81 fL (79.0-98.0); MONOCYTES # (AUTO) 0.8 K/uL (0.0-1.0); MONOCYTES % (AUTO) 10.8 % (1.7-9.3); NEUTROPHILS # (AUTO) 3.6 K/uL (1.8-7.7); PLATELET COUNT (AUTO) 374 K/uL (130-430); RED BLOOD CELL COUNT(AUTO) 4.16 MIL/uL (4.2-6.2); RED CELL DISTRIBUTION WIDTH 17.9 % (9.0-15.0); WHITE BLOOD COUNT (AUTO) 7.3 K/uL (4.8-10.8)
--- NOTE | 2022-11-10 07:48 | NUR ---
CLOSING Patient resting in bed, unlabored breathing on room air. Slept well through night. Patient was anxious this morning and reported pain in the groin, given [place] PRN. Midline to right upper arm placed by PICC nurse mike Hoyos to use. Safety precautions in place. Endorsed to oncoming nurse.
[2022-11-10] MEDS: QUEtiapine FUMARATE 100 MG TABLET PO SCH ×2 (08:13→20:43)
[2022-11-10] MEDS: CITALOPRAM HYDROBROMIDE 20 MG TABLET PO SCH (08:13)
[2022-11-10] MEDS: HYDROcodone/ACETAMIN 10-325 MG TAB PO PRN ×2 (08:13→20:43)
[2022-11-10] MEDS: DICYCLOMINE HCL 10 MG CAPSULE PO SCH (08:14)
[2022-11-10] MEDS: GABAPENTIN 100 MG CAPSULE PO SCH (08:14)
[2022-11-10] MEDS: HYDROCHLOROTHIAZIDE 25 MG TABLET (HCTZ) PO SCH (08:15)
--- NOTE | 2022-11-10 09:45 | NUR ---
TUBE OPERATOR ACSW Jane consulted with assigned RN Bryan to obtain update on patient's cognitive status and knowledge of discharge planning. ACSW also contacted patient's son Chance to obtain information on patient's mental health history. ACSW Jane met with patient at bedside. ACSW completed introductions and patient was open to contact. MENTAL HEALTH- Patient denied SI/HI at this time. She expressed decrease in anxiety but continues to expresses feeling "depressed". Patient's son Chance shared patient DOES NOT have schizophrenia. He confirmed patient's prior suicide attempts as well as previous 5150 holds in [facility] with the last being about 3 years ago. SOCIAL- Patient and her son (states he is a nurse) both confirm patient resides alone. According to son Chance, both him and his brother Gigi and their respective wives check in with patient daily at home. Chance's has lunch with patient daily and they all provide support with groceries, transportation to medical appointments etc. ACSW discussed the importance of maintaining mental health care in addition to medication management. ACSW and patient's son discussed managing patient's increasing needs for monitoring and support including considering hiring a caregiver or allowing patient to reside in their homes. He stated they will provide transport when patient is ready for discharge Box Spring Maker will continue to be available as needed
--- NOTE | 2022-11-10 10:00 | NUR ---
SOCIAL WORK At bedside at this time.
[2022-11-10 10:11] LABS: ERYTHROCYTE SEDIMENTATION RATE 39 MM/HR (0-20)
[2022-11-10] MEDS: cefTRIAXone 1 GM in D5W 50 ML IV SCH (11:33)
[2022-11-10 11:41] VITALS: BP_SYST 124
[2022-11-10] MEDS ORDERED: POTASSIUM CHLORIDE 20 MEQ/PKT PACKET PO ONE (12:00)
[2022-11-10] MEDS: AZITHROMYCIN 250 MG in NS 250 ML IV SCH (13:59)
[2022-11-10 15:41] VITALS: BP_SYST 130
--- NOTE | 2022-11-10 18:55 | NUR ---
CLOSING NOTE Patient in bed, sitting up and awake. She states she is in pain but no pain medication is due at this time. Midline site intact at this time. Will endorse to oncoming nurse.
[2022-11-10 20:00] VITALS: BP_SYST 135
[2022-11-10] MEDS: traZODone HCL 50 MG TABLET (DESYREL) PO SCH (20:42)
[2022-11-11 00:36] VITALS: BP_SYST 143
[2022-11-11] MEDS: NACL 0.9% 1,000 ML IV SCH ×2 (00:43→21:45)
[2022-11-11] MEDS: HYDROcodone/ACETAMIN 5-325 MG TAB (NORCO/ VICODIN) PO PRN (05:35)
[2022-11-11 08:00] VITALS: BP_SYST 155
--- NOTE | 2022-11-11 08:05 | NUR ---
MD FARRAR [facility] KIDNEY SPECIALIST CALLED AT [phone]CHIANG CHEUNG BEN CARTOGRAPHY PROFESSOR.
--- NOTE | 2022-11-11 08:10 | NUR ---
RECEIVED IN BED AWAKE PULLED OUT MIDLINE PULLED OFF ILLEOSTOMY BAG NOTED TO BE HOSTILE AND NON COMPLIANT DR STEINER PAGEAnurag AND CALLED BACK AND MADE AWARE PER MD OK TO LEAVE IV OUT AND ONE TIME ATIVAN PO ORDERED FOR AGITATION ASSESSMENT COMPLETED PLAN OF CARE REVIEWED WILL CONTINUE TO MONITOR AND ASSESS ILEOSTOMY BAG REPLACED AND PT TURNED AND REPOSITIONED
[2022-11-11] MEDS ORDERED: LORazepam 1 MG TABLET PO ONE (08:30)
[2022-11-11] MEDS: DICYCLOMINE HCL 10 MG CAPSULE PO SCH (09:39)
[2022-11-11] MEDS: CITALOPRAM HYDROBROMIDE 20 MG TABLET PO SCH (09:39)
[2022-11-11] MEDS: QUEtiapine FUMARATE 100 MG TABLET PO SCH ×2 (09:39→20:24)
[2022-11-11] MEDS: GABAPENTIN 100 MG CAPSULE PO SCH (09:39)
[2022-11-11] MEDS: HYDROCHLOROTHIAZIDE 25 MG TABLET (HCTZ) PO SCH (09:40)
[2022-11-11 09:50] LABS: ANION GAP 10 (5-15); CHLORIDE 93 mmol/L (98-107); CREATININE 0.54 mg/dL (0.55-1.30); GLUCOSE 129 mg/dL (70-99); UREA NITROGEN, BLOOD 3 mg/dL (8-21)
[2022-11-11] MEDS: cefTRIAXone 1 GM in D5W 50 ML IV SCH (11:15)
[2022-11-11 11:33] VITALS: BP_SYST 137
[2022-11-11 15:31] VITALS: BP_SYST 125
[2022-11-11 20:00] VITALS: BP_SYST 130
[2022-11-11] MEDS: HYDROcodone/ACETAMIN 10-325 MG TAB PO PRN (20:24)
[2022-11-11] MEDS: traZODone HCL 50 MG TABLET (DESYREL) PO SCH (20:25)
[2022-11-12] VITALS: BP_SYST 123; BP_SYST 128
[2022-11-12 04:00] VITALS: BP_SYST 120
--- NOTE | 2022-11-12 07:42 | NUR ---
PHYSICAL THERAPY CO-SIGN The Physical Therapy Progress Notes documented by Nuclear Physicist have been reviewed. Reviewed/Co-Signed by: Gianfranco Jama Documentation Done by: OLIVIA GOMEZ PTA Addendum: 11/12/22 at 0744 by Gianfranco Jama PT Amended: Links added.
[2022-11-12 08:00] VITALS: BP_SYST 156
--- NOTE | 2022-11-12 08:13 | NUR ---
RECEIVED IN BED AWAKE CONFUSED AGITATED PULLED ILEOSTOMY OFF NON COMPLIANT ASSESSMENT COMPLETED PLAN OF CARE REVIEWED CALL PLACED TO MD STEINER AND NOTED AGITATION NEW ORDER FOR ATIVAN PRN WILL CONITNUE TO MONITOR AND ASSESS REALITY ORIENTATION PROVIDED CALL LIGHT IN REACH
[2022-11-12] MEDS: CITALOPRAM HYDROBROMIDE 20 MG TABLET PO SCH (08:30)
[2022-11-12] MEDS: DICYCLOMINE HCL 10 MG CAPSULE PO SCH (08:30)
[2022-11-12] MEDS: LORazepam 1 MG TABLET PO PRN ×3 (08:30→22:15)
[2022-11-12] MEDS: METOPROLOL SUCCINATE 50 MG TAB.SR.24H (TOPROL XL) PO SCH (08:31)
[2022-11-12] MEDS: QUEtiapine FUMARATE 100 MG TABLET PO SCH ×2 (08:31→22:15)
[2022-11-12] MEDS: GABAPENTIN 100 MG CAPSULE PO SCH (08:31)
[2022-11-12] MEDS: cefTRIAXone 1 GM in D5W 50 ML IV SCH (11:15)
--- NOTE | 2022-11-12 11:32 | NUR ---
PATIENT REFUSED PT TREATMENT TODAY STATING SHE'S NOT FEELING GOOD.
[2022-11-12] MEDS: HYDROcodone/ACETAMIN 10-325 MG TAB PO PRN (14:54)
[2022-11-12 17:33] VITALS: BP_SYST 149
--- NOTE | 2022-11-12 18:28 | NUR ---
PT AGITATED AND ANXIOUS MEDICATED ORDERED WITH ATIVAN AND MED NOTED TO BE EFFECTIVE
[2022-11-12 20:00] VITALS: BP_SYST 112
[2022-11-12] MEDS: NACL 0.9% 1,000 ML IV SCH (21:59)
[2022-11-12] MEDS: HYDROcodone/ACETAMIN 5-325 MG TAB (NORCO/ VICODIN) PO PRN (22:14)
[2022-11-12] MEDS: traZODone HCL 50 MG TABLET (DESYREL) PO SCH (22:16)
[2022-11-13 00:42] VITALS: BP_SYST 102
[2022-11-13 08:00] VITALS: BP_SYST 133
--- NOTE | 2022-11-13 08:55 | NUR ---
HEAD COUNSELOR ACSW Jane responded to a Social Work consult for "Reconsult psych for med adjustment" ACSCalvin Lara consulted with assigned RN Ailyn to discuss the need to request Telepsych for psych med adjustment Telegraph Office Manager will continue to be available as needed
[2022-11-13] MEDS: GABAPENTIN 100 MG CAPSULE PO SCH (09:03)
[2022-11-13] MEDS: QUEtiapine FUMARATE 100 MG TABLET PO SCH ×2 (09:04→22:30)
[2022-11-13] MEDS: DICYCLOMINE HCL 10 MG CAPSULE PO SCH (09:04)
[2022-11-13] MEDS: CITALOPRAM HYDROBROMIDE 20 MG TABLET PO SCH (09:04)
[2022-11-13] MEDS: HYDROcodone/ACETAMIN 10-325 MG TAB PO PRN (09:04)
[2022-11-13] MEDS: METOPROLOL SUCCINATE 50 MG TAB.SR.24H (TOPROL XL) PO SCH (09:05)
[2022-11-13 11:15] VITALS: BP_SYST 102
--- NOTE | 2022-11-13 12:00 | NUR ---
staff SW informed this hand sign writer that Miss Gardner needs a Telepsych consult to have psych meds adjusted and that the admitting MD will need to order this.
[2022-11-13 15:15] VITALS: BP_SYST 99
[2022-11-13] MEDS: HYDROcodone/ACETAMIN 5-325 MG TAB (NORCO/ VICODIN) PO PRN ×2 (15:35→22:30)
[2022-11-13 16:56] LABS: ANION GAP 6 (5-15); CALCIUM 8.3 mg/dL (8.4-11.0); CHLORIDE 95 mmol/L (98-107); GLUCOSE 143 mg/dL (70-99); UREA NITROGEN, BLOOD 7 mg/dL (8-21)
--- NOTE | 2022-11-13 18:45 | NUR ---
Miss Gardner has been assessed as indicated. She c/o pain and becomes very restless and demanding. she has removed her colostomy several times this shift. At time she tosses it to the floor at other times she removes it and it is lost in the bed linens. When her incontinence pad is saturated. She tosses that out of the bed also. Even tosses it at staff when she is displeased. She has been successfully medicated for pain with oral pain meds. She has no IV access MD is aware. IV antibiotics have been changed to PO. She has been medicated and is resting quietly at this time.
[2022-11-13] MEDS: levoFLOXacin 750 MG TABLET PO SCH (18:59)
--- NOTE | 2022-11-13 19:30 | NUR ---
Handoff has been given to Farhan
[2022-11-13 21:00] VITALS: BP_SYST 137
[2022-11-13] MEDS: NACL 0.9% 1,000 ML IV SCH (21:45)
[2022-11-13] MEDS: traZODone HCL 50 MG TABLET (DESYREL) PO SCH (22:30)
[2022-11-14] MEDS: HYDROcodone/ACETAMIN 10-325 MG TAB PO PRN ×2 (05:25→15:24)
[2022-11-14] MEDS: NACL 0.9% 1,000 ML IV SCH (07:00)
[2022-11-14 08:00] VITALS: BP_SYST 107
[2022-11-14] MEDS: levoFLOXacin 750 MG TABLET PO SCH (08:55)
[2022-11-14] MEDS: CITALOPRAM HYDROBROMIDE 20 MG TABLET PO SCH (08:55)
[2022-11-14] MEDS: QUEtiapine FUMARATE 100 MG TABLET PO SCH ×2 (08:55→20:39)
[2022-11-14] MEDS: GABAPENTIN 100 MG CAPSULE PO SCH (08:55)
[2022-11-14] MEDS: METOPROLOL SUCCINATE 50 MG TAB.SR.24H (TOPROL XL) PO SCH (08:56)
[2022-11-14] MEDS: DICYCLOMINE HCL 10 MG CAPSULE PO SCH (08:56)
[2022-11-14 11:46] VITALS: BP_SYST 111
[2022-11-14 15:17] VITALS: BP_SYST 114
--- NOTE | 2022-11-14 19:19 | NUR ---
Received report on patient from everton maddox, assumed care, and started assessment.
[2022-11-14 20:00] VITALS: BP_SYST 108
--- NOTE | 2022-11-14 20:25 | NUR ---
PATIENT REPORTED PAIN IN HER BACK AT 10/10 AND REQUESTED PAIN MEDICATION. HER ORDERED PAIN MEDICATION WAS NORCO 10/325. SHE SAID SHE DID NOT WANT IT , SHE WANTED A SHOT. THIS WAS THE ONLY PAIN MEDICATION THAT WAS ORDERED FOR THE PATIENT. SHE RELENTED AND TOOK IT. WILL CONTINUE TO MONITOR AND ASSESS FOR SAFETY AND COMFORT.
[2022-11-14] MEDS: traZODone HCL 50 MG TABLET (DESYREL) PO SCH (21:00)
--- NOTE | 2022-11-14 22:14 | NUR ---
ROUNDED ON PATIENT. SHE IS PRESENTLY SOUND ASLEEP RESTING IN NO APPARENT DISTRESS. ABOVE MEDICATION EFFECTIVE. WILL CONTINUE TO MONITOR AND ASSESS FOR SAFETY AND COMFORT.
--- NOTE | 2022-11-15 07:12 | NUR ---
REPORT GIVEN TO KAREN GUTIERREZ, AND CARE WAS TURNED OVER TO HIM.
[2022-11-15 08:00] VITALS: BP_SYST 127
[2022-11-15] MEDS: DICYCLOMINE HCL 10 MG CAPSULE PO SCH (08:48)
[2022-11-15] MEDS: QUEtiapine FUMARATE 100 MG TABLET PO SCH ×2 (08:48→20:54)
[2022-11-15] MEDS: CITALOPRAM HYDROBROMIDE 20 MG TABLET PO SCH (08:48)
[2022-11-15] MEDS: METOPROLOL SUCCINATE 50 MG TAB.SR.24H (TOPROL XL) PO SCH (08:48)
[2022-11-15] MEDS: GABAPENTIN 100 MG CAPSULE PO SCH (08:48)
[2022-11-15] MEDS: HYDROcodone/ACETAMIN 10-325 MG TAB PO PRN ×2 (08:49→17:53)
--- NOTE | 2022-11-15 11:17 | NUR ---
Nutrition F/U Admitting Diagnosis abdominal discomfort, SOB Reviewed Pertinent Medical/Surgical Hx Medical Record Patient Medical History Comment: RDN received 11/05 at 0044 PMH: COPD, HTN, bowel obstruction s/p ileostomy, gastritis, schizophrenia, anxiety, depression Issues: presented with complaint of abdominal pain. Upon admission reportedly the patient's son informed the RN that the patient was experiencing suicidal ideation and threatening to take all of her medication. Per psych note: the patient's son reported the nurse misunderstood him and that the issue was years ago. Subjective Information RD rounded to pt room and s/w pt. She says her appetite is ok, only 63% PO of meals documented. She is having trouble eating some of the meals d/t not having any dentures. RD asked if she would like mechanical soft diet and she was agreeable. When asked if she would like Ensure, pt refused, saying she doesnt care for them. RD suggested snacks in between meals; RD noted in computrition. She attested to feeling a lot of pain and nausea currently. Per EMR review: abd soft, non-distended, w/ active bowel sounds. Current Diet Order/Nutrition Support Soft/low fiber/bland diet x 10 days Patient/Significant Other Able To Verbalize Education Provided Not Indicated Pertinent Medications Seroquel, metoprolol Pertinent Labs Na 130(L), K+ 3.6(WNL), BUN 7 (L), BG 143 (H) Height (Feet) 5 feet Height (Inches) 2.00 inches Weight stable since 11/05 102 pounds/ 46.266 kg Body Mass Index 18.65 kg/m2 Usual Weight 100 lbs %UBW 102 %IBW 93 [place]/Adjusted Body Weight 110#/50Kg Recent Weight Change No - the patient reports she has not noticed her weight fluctuating recently Weight Status Underweight Last BM 11/13/22 x 1 Difficulty With: Chewing Food Allergies No - NKFA per patient Usual Diet At Home regular diet, no restrictions Skin Integrity Comment: Rosendo score: 17 on 11/14/22 at 2000 Wounds: lower ileostomy Edema: none documented 11/15/22 Current % PO Fair (avg of 63% x 9 meals) Estimated Energy Expenditure (kcals/day) 3975-3491 (CBW 46.3 Kg, 30-35 Kcals/Kg, geriatric patient, BMI 18.65 - LOW) Estimated Protein Required (g/day) 46-60 (CBW 46.3 Kg, 1-1.3 gm pro/Kg) Estimated Fluid Required (l/day) per MD until hyponatremia is resolved Problem/Etiology/Signs/Symptoms Inadequate protein and energy intake due to altered GI function, complaint of discomfort after eating AEB PO intake <75% on average (ongoing). Increased nutritional needs due to low BMI for geriatric status AEB BMI 18.65 Kg/m2 and 93% IBW (ongoing). Expected Outcomes/Goals Monitor tolerance of diet and PO adequacy with goal of patient consuming >75% of estimated nutrition needs, nutrition-related labs trending within acceptable range, normal/usual GI function, skin integrity and weight maintenance or gain to healthier BMI. Dietitian Recommendations 1. Change to mechanical soft diet, pt does not have dentures 2. Suggest daily multivitamin with minerals for micronutrient coverage. 3. Send snacks in between meals; RD noted in Computrition Follow Up Mod Risk: F/U in 3-5 days LUPE, MPH, RD
--- NOTE | 2022-11-15 11:19 | NUR ---
Dietitian Recommendations 1. Change to mechanical soft diet, pt does not have dentures 2. Suggest daily multivitamin with minerals for micronutrient coverage. 3. Send snacks in between meals; RD noted in Computrition GS, MPH, RD Please refer to Nutrition F/U for further details. Thanks!
--- NOTE | 2022-11-15 13:40 | NUR ---
dr kim garcia called [phone] to follow up with psych consult and s/w who will forward message to dr garcia.
[2022-11-15 16:00] VITALS: BP_SYST 108
--- NOTE | 2022-11-15 18:55 | NUR ---
PT HAD PSYCH CONSULT THROUGH THE IPAD WITH DR MARMOLEJO
[2022-11-15 20:00] VITALS: BP_SYST 108
[2022-11-15] MEDS: DULoxetine HCL 30 MG CAPSULE.DR (CYMBALTA) PO SCH (20:54)
[2022-11-15] MEDS: HYDROcodone/ACETAMIN 5-325 MG TAB (NORCO/ VICODIN) PO PRN (20:54)
[2022-11-15] MEDS: traZODone HCL 50 MG TABLET (DESYREL) PO SCH (20:54)
--- NOTE | 2022-11-15 21:04 | NUR ---
RECEIVED PT LYING IN BED, ANXIOUS. AAOX4, O2 SAT 97% ON RA. C/O BACK AND B/L GROIN PAIN, MEDICATED WITH NORCO 5MG. NO IV ACCESS PT HAS PULLING IVS OUT PER REPORT MD AWARE. BRUISING NOT TO BUE. PALPABLE PULSES TO ALL EXTREMITIES. ILEOSTOMY DRAINING BROWN SOFT STOOL. SITE CDI.
[2022-11-15] MEDS: NACL 0.9% 1,000 ML IV SCH (21:45)
[2022-11-16 02:21] VITALS: BP_SYST 120
[2022-11-16] MEDS: HYDROcodone/ACETAMIN 10-325 MG TAB PO PRN (05:50)
[2022-11-16 08:00] VITALS: BP_SYST 112
[2022-11-16] MEDS: DICYCLOMINE HCL 10 MG CAPSULE PO SCH (09:57)
[2022-11-16] MEDS: LORazepam 1 MG TABLET PO PRN (09:57)
[2022-11-16] MEDS: QUEtiapine FUMARATE 100 MG TABLET PO SCH ×2 (09:57→22:15)
[2022-11-16] MEDS: CITALOPRAM HYDROBROMIDE 20 MG TABLET PO SCH (09:57)
[2022-11-16] MEDS: METOPROLOL SUCCINATE 50 MG TAB.SR.24H (TOPROL XL) PO SCH (09:58)
[2022-11-16] MEDS: GABAPENTIN 100 MG CAPSULE PO SCH (09:58)
[2022-11-16 12:00] VITALS: BP_SYST 126
[2022-11-16] MEDS: HYDROcodone/ACETAMIN 5-325 MG TAB (NORCO/ VICODIN) PO PRN (16:32)
[2022-11-16 20:00] VITALS: BP_SYST 111
[2022-11-16] MEDS: NITROFURANTOIN MONOHYD/M-CRYST 100 MG CAPSULE (MacroBID) PO SCH (21:00)
[2022-11-16] MEDS: NACL 0.9% 1,000 ML IV SCH (21:45)
[2022-11-16] MEDS: traZODone HCL 50 MG TABLET (DESYREL) PO SCH (22:15)
[2022-11-16] MEDS: DULoxetine HCL 30 MG CAPSULE.DR (CYMBALTA) PO SCH (22:15)
[2022-11-17] VITALS: BP_SYST 111
[2022-11-17] MEDS: HYDROcodone/ACETAMIN 10-325 MG TAB PO PRN (03:43)
[2022-11-17 04:00] VITALS: BP_SYST 120
[2022-11-17] MEDS: LORazepam 1 MG TABLET PO PRN ×3 (05:24→17:55)
[2022-11-17] MEDS: HYDROcodone/ACETAMIN 5-325 MG TAB (NORCO/ VICODIN) PO PRN ×3 (05:24→17:56)
[2022-11-17 08:00] VITALS: BP_SYST 118
[2022-11-17] MEDS: CITALOPRAM HYDROBROMIDE 20 MG TABLET PO SCH (10:40)
[2022-11-17] MEDS: GABAPENTIN 100 MG CAPSULE PO SCH (10:40)
[2022-11-17] MEDS: DICYCLOMINE HCL 10 MG CAPSULE PO SCH (10:41)
[2022-11-17] MEDS: METOPROLOL SUCCINATE 50 MG TAB.SR.24H (TOPROL XL) PO SCH (10:41)
[2022-11-17] MEDS: QUEtiapine FUMARATE 100 MG TABLET PO SCH (10:42)
[2022-11-17 11:40] VITALS: BP_SYST 111
[2022-11-17 15:20] VITALS: BP_SYST 127
--- NOTE | 2022-11-17 17:00 | NUR ---
Miss Gardner has been assessed as indicated. She was encouraged to get into a chair this evening. She declined the offer insisting that she was too cold and in too much pain to do so. she does state that she will get into a chair tomorrow
--- NOTE | 2022-11-17 17:50 | NUR ---
PHYSICAL THERAPY CO-SIGN The Physical Therapy Progress Notes documented by High School Special Education Teacher have been reviewed. Reviewed/Co-Signed by: Sabiha Hoskins PT Documentation Done by:OLIVIA GOMEZ PTA REC: [facility] Addendum: 11/17/22 at 1751 by Sabiha Hoskins PT Amended: Links added.
[2022-11-17] MEDS: NITROFURANTOIN MONOHYD/M-CRYST 100 MG CAPSULE (MacroBID) PO SCH ×2 (17:53→21:00)
[2022-11-17] MEDS: NACL 0.9% 1,000 ML IV SCH (21:45)
[2022-11-18] MEDS: traZODone HCL 50 MG TABLET (DESYREL) PO SCH ×2 (00:28→21:32)
[2022-11-18] MEDS: DULoxetine HCL 30 MG CAPSULE.DR (CYMBALTA) PO SCH ×2 (00:28→21:32)
[2022-11-18] MEDS: QUEtiapine FUMARATE 100 MG TABLET PO SCH ×3 (00:29→21:32)
[2022-11-18 00:43] VITALS: BP_SYST 130
[2022-11-18] MEDS: HYDROcodone/ACETAMIN 10-325 MG TAB PO PRN ×2 (06:50→17:32)
[2022-11-18 08:00] VITALS: BP_SYST 118
[2022-11-18] MEDS: LORazepam 1 MG TABLET PO PRN (08:50)
[2022-11-18] MEDS: CITALOPRAM HYDROBROMIDE 20 MG TABLET PO SCH (08:50)
[2022-11-18] MEDS: NITROFURANTOIN MONOHYD/M-CRYST 100 MG CAPSULE (MacroBID) PO SCH ×2 (08:50→21:32)
[2022-11-18] MEDS: DICYCLOMINE HCL 10 MG CAPSULE PO SCH (08:51)
[2022-11-18] MEDS: HYDROcodone/ACETAMIN 5-325 MG TAB (NORCO/ VICODIN) PO PRN (08:51)
[2022-11-18] MEDS: GABAPENTIN 100 MG CAPSULE PO SCH (08:51)
[2022-11-18] MEDS: METOPROLOL SUCCINATE 50 MG TAB.SR.24H (TOPROL XL) PO SCH (08:53)
[2022-11-18 11:35] VITALS: BP_SYST 95
--- NOTE | 2022-11-18 14:30 | NUR ---
assisted by Pt to chair and ambulate
[2022-11-18 15:00] VITALS: BP_SYST 112
--- NOTE | 2022-11-18 18:45 | NUR ---
Miss Gardner has been assessed as indicated. She has been successfully treated for pain 2x this shift. Her colostomy bag has been changed 2x. She continues to self bed marie to void. Her linens are often wet. She states that her tailbone hurts. she is turned by staff but does to remain on her side. She was OOB with PT she was not fully cooperative. She was walking with a walker toward the [address] way but suddenly she picked up the walker and and carried it back to the bed and stated that she wanted to go back to bed. She is resting quietly at this time
--- NOTE | 2022-11-18 19:15 | NUR ---
Handoff has been given to Nick
[2022-11-18 20:00] VITALS: BP_SYST 144
--- NOTE | 2022-11-18 20:00 | NUR ---
PT IS AWAKE, AGITATED AND UNCOOPERATIVE. PT HAS OSTOMY BAG, SHE MENTIONED THE RED AREA ROUND IT IS IRRITATING HER.
--- NOTE | 2022-11-18 20:30 | NUR ---
PT WAS PULLED OUT HER OSTOMY BAG AND POPPED BURSTING OPEN. I HAVE ADVISE THE PT THAT SHE HAS TO CALLED THROUGH CALL LIGHT IF SHE NEEDS ANYTHING. NURSE REPLACE WITH THE NEW OSTOMY BAG
[2022-11-19 01:25] VITALS: BP_SYST 130
--- NOTE | 2022-11-19 06:00 | NUR ---
I emptied illestomy bag and had 50 ml bowel movement. Pt tolerated well
[2022-11-19 07:00] VITALS: BP_SYST 111
[2022-11-19] MEDS: NACL 0.9% 1,000 ML IV SCH ×2 (07:08→21:45)
[2022-11-19] MEDS: METOPROLOL SUCCINATE 50 MG TAB.SR.24H (TOPROL XL) PO SCH (09:00)
[2022-11-19] MEDS: GABAPENTIN 100 MG CAPSULE PO SCH (10:43)
[2022-11-19] MEDS: DICYCLOMINE HCL 10 MG CAPSULE PO SCH (10:43)
[2022-11-19] MEDS: HYDROcodone/ACETAMIN 10-325 MG TAB PO PRN (10:47)
[2022-11-19] MEDS: CITALOPRAM HYDROBROMIDE 20 MG TABLET PO SCH (10:49)
[2022-11-19] MEDS: QUEtiapine FUMARATE 100 MG TABLET PO SCH ×2 (10:49→23:09)
[2022-11-19] MEDS: NITROFURANTOIN MONOHYD/M-CRYST 100 MG CAPSULE (MacroBID) PO SCH ×2 (10:57→23:09)
[2022-11-19 14:58] VITALS: BP_SYST 111
--- NOTE | 2022-11-19 16:00 | NUR ---
Assumed care from day shift RN. Patient stable condition.
[2022-11-19 18:16] VITALS: BP_SYST 122
--- NOTE | 2022-11-19 18:52 | NUR ---
Patient placed on fracture marie with urine 200 mL. Patient ileostomy emptied 30 mL.
[2022-11-19] MEDS: traZODone HCL 50 MG TABLET (DESYREL) PO SCH (23:09)
[2022-11-19] MEDS: DULoxetine HCL 30 MG CAPSULE.DR (CYMBALTA) PO SCH (23:09)
[2022-11-19] MEDS: HYDROcodone/ACETAMIN 5-325 MG TAB (NORCO/ VICODIN) PO PRN (23:18)
[2022-11-20 00:41] VITALS: BP_SYST 131
[2022-11-20] MEDS: HYDROcodone/ACETAMIN 10-325 MG TAB PO PRN (06:46)
[2022-11-20] MEDS: LORazepam 1 MG TABLET PO PRN (06:55)
--- NOTE | 2022-11-20 07:27 | NUR ---
PHYSICAL THERAPY CO-SIGN The Physical Therapy Progress Notes documented by Bakery Assistant have been reviewed. Reviewed/Co-Signed by: Gianfranco Jama Documentation Done by: OLIVIA GOMEZ PTA Addendum: 11/20/22 at 0728 by Gianfranco Jama PT Amended: Links added.
--- NOTE | 2022-11-20 07:28 | NUR ---
PHYSICAL THERAPY CO-SIGN The Physical Therapy Progress Notes documented by Rosin Barrel Filler have been reviewed. Reviewed/Co-Signed by: Gianfranco Jama Documentation Done by: OLIVIA GOMEZ PTA Addendum: 11/20/22 at 0728 by Gianfranco Jama PT Amended: Links added.
--- NOTE | 2022-11-20 07:57 | NUR ---
RN OPENING NOTE REPORT WAS ENDORSED BY NIGHT NURSE. PATIENT IS AWAKE AND ALERT LAYING IN BED. NO COMPLAINTS AT THIS TIME. CALL LIGHT IS WITH HER EDUCATED TO USE FOR ASSISTANCE. PATIENT IS CLOSE TO NURSES STATION. NO OTHER NEEDS AT THIS TIME.
[2022-11-20 08:21] VITALS: BP_SYST 132
[2022-11-20] MEDS: METOPROLOL SUCCINATE 50 MG TAB.SR.24H (TOPROL XL) PO SCH (09:56)
[2022-11-20] MEDS: DICYCLOMINE HCL 10 MG CAPSULE PO SCH (09:57)
[2022-11-20] MEDS: CITALOPRAM HYDROBROMIDE 20 MG TABLET PO SCH (09:57)
[2022-11-20] MEDS: GABAPENTIN 100 MG CAPSULE PO SCH (09:57)
[2022-11-20] MEDS: QUEtiapine FUMARATE 100 MG TABLET PO SCH (09:57)
[2022-11-20] MEDS: NITROFURANTOIN MONOHYD/M-CRYST 100 MG CAPSULE (MacroBID) PO SCH ×2 (10:01→20:38)
--- NOTE | 2022-11-20 10:02 | NUR ---
MEDICATION Addendum: 11/20/22 at 2005 by Niharika Hough RN PATIENTS SCHEDULED MEDICATION GIVEN PER ORDER. PATIENT TOLERATED MEDICATION WELL. PATIENT PLACED ON BED JUDD AND REMOVED. PATIENT EDUCATED DIETETIC ASSISTANT LIGHT FOR ASSISTANCE. CALL LIGHT IS WITH HER . NO OTHER NEEDS AT THIS TIME. PATIENT IS CLOSE TO NURSES STATION.
[2022-11-20 12:45] VITALS: BP_SYST 107
--- NOTE | 2022-11-20 12:45 | NUR ---
RN ROUNDING PATIENT ASSISTED TO BATHROOM AND BACK TO BED,RECOMMENDS ASSISTANCE WITH GETTING UP . PATIENT EDUCATED MEDICAL COLLECTIONS LIGHT FOR ASSISTANCE. CALL LIGHT IS WITH HER. PATIENT IS CLOSE TO NURSES STATION. PATIENT ALSO PROVIDED WITH A WARM BLANKET REQUESTED. PATIENT HAS NO OTHER NEEDS AT THIS TIME.
[2022-11-20] MEDS ORDERED: ZIT250 PO (12:51)
--- NOTE | 2022-11-20 16:51 | NUR ---
attempted to call patient son no answer left message with phone number to call back. patients other son's number is not a working number. patient able to ambulate to bathroom with assistance. call light is with her educated to use for assistance. no other needs at this time. patient is close to nurses station.
[2022-11-20 17:42] VITALS: BP_SYST 119
--- NOTE | 2022-11-20 18:15 | NUR ---
ABLE TO GET AHOLD OF PATIENTS SON, HE STATES HE IS JUST GETTING OFF WORK AND ABLE TO PICK HER UP AT 1999. PATIENT INFORMED SON WILL BE PICKING HER UP TONIGHT FOR DISCHARGE. PATIENT EDUCATED DIRECTOR FINANCIAL SERVICES LIGHT FOR ASSISTANCE. PATIENT IS GETTING OUT OF BED WITH OUT CALLING TO USE RESTROOM. PATIENTS BED ALARM IS ON. PATIENT IS CLOSE TO NURSES STATION.
--- NOTE | 2022-11-20 19:45 | NUR ---
RN CLOSING NOTE REPORT WAS ENDORSED TO NIGHT NURSE. PATIENT IS SUPPOSE TO BE PICKED UP AT 1999. PATIENT INFORMED. PATIENT IS NON COMPLAINT WITH CALL LIGHT. CALL LIGHT IS WITH HER .PATIENT IS CLOSE TO NURSES STATION. PATIENT HAS NO OTHER NEEDS AT THIS TIME.
[2022-11-20] MEDS: DULoxetine HCL 30 MG CAPSULE.DR (CYMBALTA) PO SCH (20:38)
--- NOTE | 2022-11-20 20:53 | NUR ---
D/C Patient Patient given medication reconciliation form and D/C instructions. Exit Care provided. Son, Chance with patient and both verbalized understanding. MD discussed with patient the results and treatment provided. Ambulatory with steady gait for discharge to home. Patient in stable condition, ID band removed. Patient did not have IV catheter. Rx of Azithromycin given. Patient educated on pain management. All belongings sent with patient.
== END 2022-11-20 20:51 | disposition home health service (06) | DRG 871 ==
LOC: SED 17:16 → SMU 21:40
PROVIDERS: ADMIT Specialist; ATTEND Specialist
PROC: 05HY33Z Insertion of Infusion Device into Upper Vein, Percutaneous Approach (ICD-10-PCS; principal; 2022-11-10)
PROC: B54MZZA Ultrasonography of Right Upper Extremity Veins, Guidance (ICD-10-PCS; 2022-11-10)
DX: A41.9 Sepsis, unspecified organism (principal); J69.0 Pneumonitis due to inhalation of food and vomit; K56.609 Unspecified intestinal obstruction, unspecified as to partial versus complete obstruction; F33.9 Major depressive disorder, recurrent, unspecified; R45.851 Suicidal ideations; E87.1 Hypo-osmolality and hyponatremia; N39.0 Urinary tract infection, site not specified; T42.4X2A Poisoning by benzodiazepines, intentional self-harm, initial encounter; K29.70 Gastritis, unspecified, without bleeding; F20.9 Schizophrenia, unspecified; I10 Essential (primary) hypertension; Z20.822 Contact with and (suspected) exposure to COVID-19; J44.9 Chronic obstructive pulmonary disease, unspecified; F41.9 Anxiety disorder, unspecified; G62.9 Polyneuropathy, unspecified; G89.4 Chronic pain syndrome; Z88.5 Allergy status to narcotic agent; Z88.2 Allergy status to sulfonamides; Z79.899 Other long term (current) drug therapy; Y92.89 Other specified places as the place of occurrence of the external cause; Z93.3 Colostomy status
CPT/HCPCS: 36415; 71045; 76376; 80048; 80053; 80307; 81000; 82550; 83605; 83735; 85025; 85610-TC; 85651-TC; 86140; 87040; 87081; 87086; 96361; 96365; 97110-GP; 97112-GP; 97116-GP; 97530-GP; 99285; A4371; A5061; C1751; G0480; G0481; G0482; J0456; J0696; J2543; J3480; J7030; J7040; J7050; J7060

== ENCOUNTER 2023-09-19 17:52 | Emergency (ER) | payer OTHER ==
[~2023-09-19] VITALS: Ht 154.9 cm; Wt 40.8 kg
[2023-09-19 17:52] VITALS: BP_SYST 128; PULSE 79; RESP 16; TEMP 98.2; O2SAT 100
[~2023-09-19 17:52] MED LIST changes: -BEN50 PO; -DIAZ2TAB3 PO; +DICY-14 PO; +ESCI10TA PO; +GABA-529 PO; +HYOS-7 PO; -HYOS0.1275 PO; +LORA-258 PO; -NEU100 PO; -PANT20TA2 PO; -PARO-41 PO; +TEMA15CA5 PO; -TRAZ-251 PO; +TRAZ300T11 PO; +ZIT250 PO; +[UNRECOGNIZED DRUG - CODE]
[2023-09-19] MEDS ORDERED: cefTRIAXone 1 GM IVPB PREMIX 50 ML IV ONE (18:00)
[2023-09-19 18:54] LABS: BASOPHILS % (AUTO) 0.7 % (0.0-2.0); EOSINOPHILS # (AUTO) 0.1 K/uL (0.0-0.4); EOSINOPHILS % (AUTO) 2.2 % (0.0-4.0); HEMATOCRIT 37.5 % (36-48); HEMOGLOBIN 11.9 g/dL (12.0-16.0); LYMPHOCYTES # (AUTO) 1.9 K/uL (1.0-5.5); LYMPHOCYTES % (AUTO) 30.8 % (20.5-51.5); MEAN CORPUSCULAR HEMOGLOBIN 26 pg (27-31); MEAN CORPUSCULAR HGB CONC 32 % (32-36); MEAN CORPUSCULAR VOLUME 82 fL (79.0-98.0); MONOCYTES # (AUTO) 0.5 K/uL (0.0-1.0); MONOCYTES % (AUTO) 8.5 % (1.7-9.3); NEUTROPHILS # (AUTO) 3.6 K/uL (1.8-7.7); NEUTROPHILS % (AUTO) 57.8 % (40.0-70.0); PLATELET COUNT (AUTO) 278 K/uL (130-430); RED BLOOD CELL COUNT(AUTO) 4.56 MIL/uL (4.2-6.2); WHITE BLOOD COUNT (AUTO) 6.2 K/uL (4.8-10.8)
[2023-09-19 18:58] LABS: ANION GAP 6 (5-15); CALCIUM 8.9 mg/dL (8.4-11.0); CARBON DIOXIDE 30 mmol/L (23-29); CHLORIDE 94 mmol/L (98-107); CREATININE 1.14 mg/dL (0.55-1.30); GLUCOSE 101 mg/dL (74-106); SODIUM SERUM 130 mmol/L (136-145); UREA NITROGEN, BLOOD 6 mg/dL (8-21)
[2023-09-19 19:06] LABS: ALANINE AMINOTRANSFERASE 23 U/L (12-78); ALBUMIN 3.4 g/dL (3.4-4.8); ASPARTATE AMINOTRANSFERASE 34 U/L (10-37); TOTAL BILIRUBIN 0.3 mg/dL (0.0-1.0); TOTAL PROTEIN, SERUM 7.7 g/dL (6.4-8.3)
[2023-09-19] MEDS ORDERED: MORPHINE 4 MG INJ. 4 MG/ML VIAL IVP ONE (19:45)
[2023-09-19] MEDS ORDERED: fentaNYL CITRATE/PF 100 MCG/2 ML AMP IVP ONE (21:45)
[2023-09-19 23:42] VITALS: BP_SYST 126; PULSE 91; RESP 18; TEMP 98.2; O2SAT 98
== END 2023-09-19 23:42 | disposition short-term general hospital (02) ==
LOC: SED 17:52
DX: S93.324A Dislocation of tarsometatarsal joint of right foot, initial encounter (principal); J44.9 Chronic obstructive pulmonary disease, unspecified; I10 Essential (primary) hypertension; Z88.5 Allergy status to narcotic agent; Z88.6 Allergy status to analgesic agent; Z79.899 Other long term (current) drug therapy; W01.0XXA Fall on same level from slipping, tripping and stumbling without subsequent striking against object, initial encounter; Y93.89 Activity, other specified; Y92.89 Other specified places as the place of occurrence of the external cause; Y99.8 Other external cause status
CPT/HCPCS: 99285; 96365; 71045; 96375; 80053; 85025; 87040; 84484; 36415; 73630; 51702; 93005; J0696; J3010; J2270